=== PATIENT | female | born 1940 | race Asian ===

== ENCOUNTER 2017-07-13 22:09 | Inpatient (IN) | payer MEDICARE, MEDICAID ==
[~2017-07-13] VITALS: Ht 121.9 cm; Wt 37.2 kg
[2017-07-13 22:30] VITALS: BP 120/70
[2017-07-13] MEDS ORDERED: MAGNESIUM HYDROXIDE 30 ML UDC PO PRN (22:30)
[2017-07-13] MEDS ORDERED: MAG HYDROX/AL HYDROX/SIMETH 30 ML UDC PO PRN (22:30)
--- NOTE | 2017-07-13 22:30 | NUR ---
ADMITTED A 77-YEAR OLD FEMALE FROM [facility] VIA GURNEY TRANSPORTED BY AMBULANCE ACCOMPANIED BY 2 EMT'S. BREATHING EVEN AND UNLABORED. NO S/SX OF ACUTE DISTRESS NOTED. NO SOB NOTED. PATIENT ADMITTED ON A VOLUNTARY ADMISSION. PATIENT IS AWAKE, ALERT AND ORIENTED X 1 ON ROOM AIR. PATIENT HAS ADMITTING DIAGNOSIS OF DEPRESSION AND ANXIETY AND MEDICAL DIAGNOSIS OF HYPERTENSION, DIABETES TYPE 2, GERD, MUSCLE WEAKNESS AND SYNCOPE. PAGED EPIC GROUP ON-CALL DR. POWERS AWAITING CALL BACK FROM MD REGARDING MED RECONCILIATION ORDERS. PATIENT DENIES SI/HI AT THIS TIME. NO MANIFESTATION OF PAIN/DISCOMFORT NOTED. SKIN AND BODY ASSESSMENT DONE. PATIENT IS UNDER THE PSYCHIATRIC CARE OF DR. MCKEON AND UNDER THE MEDICAL CARE OF DR. POWERS. PATIENT BELONGINGS WERE INVENTORIED AND CHECKED FOR CONTRABAND. PATIENT ORIENTED TO ROOM, FLOOR AND STAFF. PATIENT EDUCATED ON THE USE OF CALL NIEVES. PATIENT BED SIDE RAILS X 2 FOR SAFETY. PATIENT BED IS LOCKED. LOW BED FOR SAFETY. WILL CONTINUE TO MONITOR Q15 MINS FOR SAFETY.
--- NOTE | 2017-07-13 22:35 | NUR ---
CALLED DR. POWERS REGARDING MEDICATION RECONCILIATION ORDERS AWAITING CALL BACK FROM .
[2017-07-13] MEDS ORDERED: GLIM2TAB2 PO (23:42)
[2017-07-13] MEDS ORDERED: ZOLP10TA6 PO (23:42)
[2017-07-13] MEDS ORDERED: LOSA100T15 PO (23:42)
[2017-07-13] MEDS ORDERED: OMEP20CA10 PO (23:42)
[2017-07-13] MEDS ORDERED: MIRT15TA7 PO (23:42)
[2017-07-13] MEDS ORDERED: ESCI10TA PO (23:42)
[2017-07-14] MEDS ORDERED: clonazePAM 0.5 MG TABLET ONE (00:56)
[2017-07-14] MEDS ORDERED: ACETAMINOPHEN 325 MG TABLET ONE (00:58)
[2017-07-14] MEDS: ACETAMINOPHEN 325 MG TABLET PO PRN ×2 (01:21→21:37)
[2017-07-14] MEDS: clonazePAM 0.5 MG TABLET PO PRN (01:21)
--- NOTE | 2017-07-14 01:25 | NUR ---
PT COMPLAIN OF LOWER BACK PAIN. TYLENOL 650MG PO GIVEN ORDERED. WILL CONTINUE TO MONITOR.
--- NOTE | 2017-07-14 01:25 | NUR ---
PT IS ANXIOUS. KLONOPIN 0.5MG PO GIVEN ORDERED. WILL CONTINUE TO MONITOR.
[2017-07-14 03:05] VITALS: BP 124/70
--- NOTE | 2017-07-14 04:30 | NUR ---
FOLLOWED UP CALL MADE TO DR. PWOERS REGARDING MEDICATION RECONCILIATION. AWAITING CALL BACK FROM
--- NOTE | 2017-07-14 06:18 | NUR ---
DR. POWERS CALLED BACK AND INSTRUCTED THAT MORNING DOCTOR WILL DO THE MEDICATION RECONCILIATION. ENDORSED TO NEXT SHIFT ACCORDINGLY.
[2017-07-14 07:31] LABS: BASOPHILS % (AUTO) 0.6 % (0.0-2.0); EOSINOPHILS # (AUTO) 0.1 /CMM (0.0-0.7); EOSINOPHILS % (AUTO) 1.7 % (0.0-6.0); HEMATOCRIT 27 % (33-45); MEAN CORPUSCULAR HEMOGLOBIN 32 PG (26.0-33.0); MEAN CORPUSCULAR HGB CONC 34 g/dl (31.0-36.0); MEAN CORPUSCULAR VOLUME 93 fL (82-100); MONOCYTES # (AUTO) 0.6 /CMM (0.1-1.30); MONOCYTES % (AUTO) 7.6 % (2.0-12.0); NEUTROPHILS # (AUTO) 3.8 /CMM (1.8-8.9); NEUTROPHILS % (AUTO) 50.1 % (43.0-81.0); PLATELET COUNT (AUTO) 390 /CMM (150-450); RED BLOOD CELL COUNT(AUTO) 2.87 MIL/uL (4.0-5.2); WHITE BLOOD COUNT (AUTO) 7.6 K/uL (4.3-11.0)
[2017-07-14] MEDS ORDERED: BRIM5DRO EACHEYE (07:37)
[2017-07-14] MEDS ORDERED: AMYL1CAP56 PO (07:37)
[2017-07-14] MEDS ORDERED: BLOO-668 IN (07:37)
[2017-07-14] MEDS ORDERED: BIMA2.5D5 EACHEYE (07:37)
[2017-07-14 07:46] LABS: CHOLESTEROL 153 mg/dL (<200); HDL CHOLESTEROL 57 mg/dL (40-60); LDL 91 mg/dL (0-99); TRIGLYCERIDES 36 mg/dL (30-150)
[2017-07-14 07:52] LABS: ALANINE AMINOTRANSFERASE 20 U/L (12-78); ALBUMIN 2.9 g/dL (3.4-5.0); ALKALINE PHOSPHATASE 76 U/L (46-116); ASPARTATE AMINOTRANSFERASE 19 U/L (15-37); BILIRUBIN,TOTAL 0.2 mg/dL (0.2-1.0); CALCIUM, SERUM 8.8 mg/dL (8.5-10.1); CARBON DIOXIDE 23 mmol/L (21-32); CHLORIDE 106 mmol/L (98-107); CREATININE 1.1 mg/dL (0.6-1.3); GLUCOSE 79 mg/dL (74-106); POTASSIUM 4.4 mmol/L (3.5-5.1); SODIUM SERUM 135 mmol/L (136-145); TOTAL PROTEIN, SERUM 6.4 g/dL (6.4-8.2); UREA NITROGEN, BLOOD 28 mg/dL (7-18)
[2017-07-14 08:00] VITALS: BP 120/74
[2017-07-14] MEDS ORDERED: INSU100C10 SQ (08:01)
[2017-07-14] MEDS ORDERED: DEXTROSE 50%-WATER 50 ML DISP.SYRIN IV PRN (12:30)
[2017-07-14 13:42] LABS: IRON, SERUM 67 ug/dl (50-175); TOTAL IRON BINDING CAPACITY 396 ug/dl (250-450)
[2017-07-14] MEDS: LOSARTAN POTASSIUM 50 MG TABLET PO SCH (15:19)
--- NOTE | 2017-07-14 15:47 | NUR ---
Initial discharge plan: Per son, patient lives at home with him and his family [address] [place] [address]. ([phone]). bilingual patient support caseworker spoke to patient's son Jaime ([phone]) regarding patient's living arrangements per son, he is looking for a fdc placement. bilingual patient support caseworker will help form a safe and proper discharge.
[2017-07-14 16:21] VITALS: BP 110/62
[2017-07-14] MEDS: BLOOD SUGAR DIAGNOSTIC 1 EACH STRIP VI SCH ×2 (16:55→21:38)
[2017-07-14] MEDS: BRIMONIDINE TARTRATE OPHT SOLN 5 ML BOTTLE EACHEYE SCH (16:57)
[2017-07-14] MEDS: GLIMEPIRIDE 1 MG TABLET PO SCH (16:58)
[2017-07-14] MEDS ORDERED: BRIMONIDINE TARTRATE OPHT SOLN 5 ML BOTTLE EACHEYE SCH (17:00)
[2017-07-14] MEDS ORDERED: AMYLASE/LIPASE/PROTEASE 1 CAP.EC PO SCH (17:30)
[2017-07-14] MEDS: LIPASE/PROTEASE/AMYLASE 1 EACH CAPSULE.DR PO SCH (18:18)
[2017-07-14] MEDS: INSULIN REGULAR, HUMAN 100 UNIT/ML 3 ML VIAL SQ PRN (18:20)
[2017-07-14 20:00] VITALS: BP 148/77
[2017-07-14] MEDS: LATANOPROST EYE DROP 0.005% 2.5 ML BOTTLE EACHEYE SCH (21:27)
[2017-07-14] MEDS: TEMAZEPAM 7.5 MG CAPSULE PO PRN (21:28)
[2017-07-14] MEDS: ARIPIPRAZOLE 5 MG TABLET PO SCH (21:28)
--- NOTE | 2017-07-14 21:28 | NUR ---
GPS RN NOTES pt requesting for sleeping pill , Restoril given as ordered. bp : 148/77, hr : 81, 02 sat : 100 %
[2017-07-14] MEDS: MIRTAZAPINE 15 MG TABLET PO SCH (21:37)
[2017-07-14] MEDS ORDERED: BIMATOPROST 2.5 ML DROPS OP SCH (22:00)
--- NOTE | 2017-07-15 03:59 | NUR ---
CHECKED PT'S BLOOD SUGAR: 57 AT THIS TIME, PT IS AWAKE, VERBALLY RESPONSIVE, NO CHANGE IN MENTAL STATUS , DENIES ANY DIZZINESS AT THIS TIME. NO S/S OF HYPOGLYCEMIA NOTED. PT ABLE TO DRINK ORANGE JUICE AND ATE PUDDING AND JELLO SAFELY AND WITHOUT DIFFICULTY, CHARGE NURSE DUNCAN AWARE. WILL RECHECK BLOOD SUGAR IN 20 MINUTES.
--- NOTE | 2017-07-15 04:19 | NUR ---
RECHECKED PT'S BLOOD SUGAR ; 137 AT THIS TIME, PT REMAINS AWAKE, VERBALLY RESPONSIVE. WILL MONITOR PT CLOSELY.
[2017-07-15] MEDS ORDERED: Medication Not On Formulary EA (Omeprazole 20 MG) PO SCH (07:30)
[2017-07-15 08:00] VITALS: BP 128/68
--- NOTE | 2017-07-15 08:00 | NUR ---
GPS/RN BS=48. PT HAD BREAKFAST. NO S/S HYPOGLYCEMIA NOTED. PT REFUSED ORANGE JUICE. APPLE JUICE WITH 4 SUGARS GIVEN INSTEAD.
[2017-07-15] MEDS: BLOOD SUGAR DIAGNOSTIC 1 EACH STRIP VI SCH ×4 (08:26→23:05)
[2017-07-15] MEDS: ESCITALOPRAM OXALATE (10 MG) 10 MG TABLET PO SCH (08:30)
[2017-07-15] MEDS: LIPASE/PROTEASE/AMYLASE 1 EACH CAPSULE.DR PO SCH ×3 (08:30→17:09)
[2017-07-15] MEDS: PANTOPRAZOLE 40 MG TABLET.DR PO SCH (08:30)
[2017-07-15] MEDS: LOSARTAN POTASSIUM 50 MG TABLET PO SCH (08:30)
[2017-07-15] MEDS: GLIMEPIRIDE 1 MG TABLET PO SCH (08:31)
[2017-07-15] MEDS: BRIMONIDINE TARTRATE OPHT SOLN 5 ML BOTTLE EACHEYE SCH ×2 (08:31→17:09)
--- NOTE | 2017-07-15 08:43 | NUR ---
GPS/RN PT REFUSED ACCUCHECK
--- NOTE | 2017-07-15 11:14 | NUR ---
GPS/RN PT WAS SEEN BY DR MILLER WITH NEW ORDERS RECEIVED AND CARRIED OUT
[2017-07-15] MEDS: *INSULIN REGULAR(HUMULIN R)HUM 100 UNIT/ML VIAL SQ PRN (12:31)
[2017-07-15 16:00] VITALS: BP 100/54
[2017-07-15] MEDS ORDERED: LIPASE/PROTEASE/AMYLASE 1 EACH CAPSULE.DR PO SCH (17:30)
[2017-07-15 20:00] VITALS: BP 139/72
[2017-07-15] MEDS: LATANOPROST EYE DROP 0.005% 2.5 ML BOTTLE EACHEYE SCH (21:48)
[2017-07-15] MEDS: MIRTAZAPINE 15 MG TABLET PO SCH (21:48)
[2017-07-15] MEDS: TEMAZEPAM 7.5 MG CAPSULE PO PRN (21:48)
[2017-07-15] MEDS: ARIPIPRAZOLE 5 MG TABLET PO SCH (21:48)
[2017-07-16] MEDS: clonazePAM 0.5 MG TABLET PO PRN (05:12)
--- NOTE | 2017-07-16 05:15 | NUR ---
PT IS AGITATED. PT REQUESTING FOR MEDICATION TO CALM HER DOWN. CLONAZEPAM 0.5MG PO GIVEN ORDERED. WILL CONTINUE TO MONITOR FOR SAFETY AND BEHAVIOR [id number].
[2017-07-16] MEDS: LIPASE/PROTEASE/AMYLASE 1 EACH CAPSULE.DR PO SCH ×3 (07:44→16:33)
[2017-07-16] MEDS: PANTOPRAZOLE 40 MG TABLET.DR PO SCH (07:45)
[2017-07-16] MEDS: BLOOD SUGAR DIAGNOSTIC 1 EACH STRIP VI SCH ×4 (07:45→21:13)
[2017-07-16] MEDS: ESCITALOPRAM OXALATE (10 MG) 10 MG TABLET PO SCH (08:19)
[2017-07-16] MEDS: BRIMONIDINE TARTRATE OPHT SOLN 5 ML BOTTLE EACHEYE SCH ×2 (08:19→17:00)
[2017-07-16] MEDS: LOSARTAN POTASSIUM 50 MG TABLET PO SCH (08:20)
[2017-07-16 08:26] VITALS: BP 129/69
[2017-07-16] MEDS: INSULIN REGULAR, HUMAN 100 UNIT/ML 3 ML VIAL SQ PRN (14:20)
[2017-07-16 15:34] VITALS: BP 102/57
--- NOTE | 2017-07-16 17:47 | NUR ---
GPS RN NOTE: PT REFUSE BS CHECK STATED" I DONT WANT IT, NO MORE" WILL CONTINUE MONITORING
[2017-07-16 20:48] VITALS: BP 131/64
[2017-07-16] MEDS: MIRTAZAPINE 15 MG TABLET PO SCH (21:13)
[2017-07-16] MEDS: ARIPIPRAZOLE 5 MG TABLET PO SCH (21:13)
[2017-07-16] MEDS: LATANOPROST EYE DROP 0.005% 2.5 ML BOTTLE EACHEYE SCH (21:13)
[2017-07-16] MEDS: TEMAZEPAM 7.5 MG CAPSULE PO PRN (22:19)
[2017-07-17] MEDS: clonazePAM 0.5 MG TABLET PO PRN ×2 (06:55→14:47)
--- NOTE | 2017-07-17 07:18 | NUR ---
GPS RN: PATIENT STARTED TO BECOME ANXIOUS. BP CHECKED 134/73 HR-73. OFFERED KLONOPIN MEDICATION 0.5 MG ORDERED A PRN. PATIENT TOOK MEDICATION. WILL MONITOR PATIENT'S MOOD AND BEHAVIOR. WILL ENDORSE TO DAY SHIFT NURSE.
[2017-07-17] MEDS: BLOOD SUGAR DIAGNOSTIC 1 EACH STRIP VI SCH ×4 (07:30→21:19)
[2017-07-17 08:00] VITALS: BP 129/70
[2017-07-17] MEDS: LOSARTAN POTASSIUM 50 MG TABLET PO SCH (09:59)
[2017-07-17] MEDS: LIPASE/PROTEASE/AMYLASE 1 EACH CAPSULE.DR PO SCH ×3 (09:59→18:37)
[2017-07-17] MEDS: ESCITALOPRAM OXALATE (10 MG) 10 MG TABLET PO SCH (10:00)
[2017-07-17] MEDS: PANTOPRAZOLE 40 MG TABLET.DR PO SCH (10:00)
[2017-07-17] MEDS: BRIMONIDINE TARTRATE OPHT SOLN 5 ML BOTTLE EACHEYE SCH ×2 (10:07→18:37)
[2017-07-17] MEDS: *INSULIN REGULAR(HUMULIN R)HUM 100 UNIT/ML VIAL SQ PRN (12:47)
--- NOTE | 2017-07-17 14:51 | NUR ---
SW faxed inquiry (psych/medical HMP, medications and face sheet) to [facility], [address] [place] [address]. [facility] [address], , . Called facility back in order to inquire if they had received inquiry (fax). Respondent stated, yes and informed SW that either Melonie or Theresa, from Admissions would be calling back with an update.
--- NOTE | 2017-07-17 16:25 | NUR ---
pt remaiuns somatic and needy ' i cant breath , iwant another blanket' still confused and needs constant redirection
[2017-07-17 16:26] VITALS: BP 113/57
[2017-07-17] MEDS: INSULIN REGULAR, HUMAN 100 UNIT/ML 3 ML VIAL SQ PRN (18:35)
[2017-07-17 20:21] VITALS: BP 99/57
[2017-07-17] MEDS: ARIPIPRAZOLE 5 MG TABLET PO SCH (21:17)
[2017-07-17] MEDS: LATANOPROST EYE DROP 0.005% 2.5 ML BOTTLE EACHEYE SCH (21:17)
[2017-07-17] MEDS: MIRTAZAPINE 15 MG TABLET PO SCH (21:17)
[2017-07-18] MEDS: PANTOPRAZOLE 40 MG TABLET.DR PO SCH (08:22)
[2017-07-18] MEDS: LIPASE/PROTEASE/AMYLASE 1 EACH CAPSULE.DR PO SCH ×3 (08:23→17:57)
[2017-07-18] MEDS: ESCITALOPRAM OXALATE (10 MG) 10 MG TABLET PO SCH (08:23)
[2017-07-18] MEDS: LOSARTAN POTASSIUM 50 MG TABLET PO SCH (08:23)
[2017-07-18] MEDS: BLOOD SUGAR DIAGNOSTIC 1 EACH STRIP VI SCH ×2 (08:23→12:00)
[2017-07-18] MEDS: BRIMONIDINE TARTRATE OPHT SOLN 5 ML BOTTLE EACHEYE SCH ×2 (08:25→17:58)
[2017-07-18 08:33] VITALS: BP 115/62
--- NOTE | 2017-07-18 15:33 | NUR ---
Chester from [facility], [address]. [facility] [address], ([phone]) came to assess the patient at 11:45am. vegetable farmworker will follow-up.
[2017-07-18 15:44] VITALS: BP 105/69
[2017-07-18 20:06] VITALS: BP 115/64
[2017-07-18] MEDS: MIRTAZAPINE 15 MG TABLET PO SCH (21:13)
[2017-07-18] MEDS: ARIPIPRAZOLE 5 MG TABLET PO SCH (21:13)
[2017-07-18] MEDS: LATANOPROST EYE DROP 0.005% 2.5 ML BOTTLE EACHEYE SCH (21:13)
[2017-07-19] MEDS: PANTOPRAZOLE 40 MG TABLET.DR PO SCH (07:30)
[2017-07-19] MEDS: LIPASE/PROTEASE/AMYLASE 1 EACH CAPSULE.DR PO SCH ×3 (07:30→17:51)
[2017-07-19 08:07] VITALS: BP 112/55
[2017-07-19] MEDS: LOSARTAN POTASSIUM 50 MG TABLET PO SCH (09:39)
[2017-07-19] MEDS: BRIMONIDINE TARTRATE OPHT SOLN 5 ML BOTTLE EACHEYE SCH ×2 (09:41→17:42)
[2017-07-19] MEDS: ESCITALOPRAM OXALATE (10 MG) 10 MG TABLET PO SCH (09:42)
[2017-07-19 16:14] VITALS: BP 104/54
--- NOTE | 2017-07-19 19:30 | NUR ---
GPS RN NOTE, RECEIVED PATIENT AWAKE AND IN BED NO S/S OR COMPLAINTS OF PAIN AT THIS TIME. PATIENT IS DISPLAYING NO S/S OF APPARENT DISTRESS AT THIS TIME. PATIENT BREATHING IS UNLABORED WITH EQUAL RISE AND FALL OF THE CHEST. PATIENT IS ALERT AND ORIENTED X1 ON ROOM AIR WITH A SPOO2 97%. PATIENT IS MED COMPLIANT, CONFUSED, ANXIOUS, DISORGANIZED, AND NEEDS REORIENTATION. PATIENT DENIES SUICIDE IDEATIONS AND HOMICIDAL IDEATIONS AT THIS TIME. PATIENT ASSISTED WITH TURNING AND REPOSITIONING Q2HR AND PRN FOR COMFORT AND CIRCULATION. PATIENT HAS NO NEEDS AT THIS TIME. PATIENT EDUCATED ON THE USE OF THE CALL NIEVES. PATIENT BED SIDE RAILS UP X 2 FOR SAFETY. PATIENT BED IS LOCKED AND LOW WILL CONTINUE TO MONITOR AND MAINTAIN SAFETY Q15 MIN WITH THE HELP OF STAFF.
[2017-07-19 20:06] VITALS: BP 94/54
[2017-07-19] MEDS: ARIPIPRAZOLE 5 MG TABLET PO SCH (21:23)
[2017-07-19] MEDS: LATANOPROST EYE DROP 0.005% 2.5 ML BOTTLE EACHEYE SCH (21:23)
[2017-07-19] MEDS: MIRTAZAPINE 15 MG TABLET PO SCH (21:24)
[2017-07-19] MEDS: TEMAZEPAM 7.5 MG CAPSULE PO PRN (21:24)
--- NOTE | 2017-07-19 21:24 | NUR ---
GPS RN NOTE, PATIENT HAS A COMPLAINT OF NOT BEING ABLE TO SLEEP AND IS REQUESTING RESTORIL AT THIS TIME. PATIENT VITAL SIGNS ARE STABLE. GAVE RESTORIL 7.5MG PO HS ORDERED. WILL REASSESS FOR INSOMNIA AND I WILL CONTINUE TO MONITOR THIS PATIENT.
[2017-07-20 07:43] VITALS: BP 133/67
[2017-07-20] MEDS: LIPASE/PROTEASE/AMYLASE 1 EACH CAPSULE.DR PO SCH ×3 (08:52→17:18)
[2017-07-20] MEDS: BRIMONIDINE TARTRATE OPHT SOLN 5 ML BOTTLE EACHEYE SCH ×2 (08:52→17:18)
[2017-07-20] MEDS: PANTOPRAZOLE 40 MG TABLET.DR PO SCH (08:52)
[2017-07-20] MEDS: LOSARTAN POTASSIUM 50 MG TABLET PO SCH (08:53)
[2017-07-20] MEDS: ESCITALOPRAM OXALATE (10 MG) 10 MG TABLET PO SCH (08:53)
[2017-07-20 15:36] VITALS: BP 108/53
[2017-07-20 20:00] VITALS: BP 104/59
[2017-07-20] MEDS: TEMAZEPAM 7.5 MG CAPSULE PO PRN (22:11)
[2017-07-20] MEDS: ARIPIPRAZOLE 5 MG TABLET PO SCH (22:11)
[2017-07-20] MEDS: LATANOPROST EYE DROP 0.005% 2.5 ML BOTTLE EACHEYE SCH (22:11)
[2017-07-20] MEDS: MIRTAZAPINE 15 MG TABLET PO SCH (22:11)
[2017-07-21 07:18] LABS: BASOPHILS % (AUTO) 0.6 % (0.0-2.0); EOSINOPHILS # (AUTO) 0.1 /CMM (0.0-0.7); EOSINOPHILS % (AUTO) 1.7 % (0.0-6.0); HEMATOCRIT 31 % (33-45); HEMOGLOBIN 10.3 g/dL (11.5-14.8); LYMPHOCYTES # (AUTO) 3.2 /CMM (0.8-4.8); LYMPHOCYTES % (AUTO) 41.1 % (20.0-44.0); MEAN CORPUSCULAR HEMOGLOBIN 32 PG (26.0-33.0); MEAN CORPUSCULAR HGB CONC 33 g/dl (31.0-36.0); MEAN CORPUSCULAR VOLUME 95 fL (82-100); MONOCYTES # (AUTO) 0.6 /CMM (0.1-1.30); MONOCYTES % (AUTO) 7.4 % (2.0-12.0); NEUTROPHILS # (AUTO) 3.8 /CMM (1.8-8.9); NEUTROPHILS % (AUTO) 49.2 % (43.0-81.0); PLATELET COUNT (AUTO) 453 /CMM (150-450); RDW COEFFICIENT OF VARIATION 16.2 (11.5-15.0); RED BLOOD CELL COUNT(AUTO) 3.25 MIL/uL (4.0-5.2); WHITE BLOOD COUNT (AUTO) 7.7 K/uL (4.3-11.0)
[2017-07-21 07:39] LABS: CALCIUM, SERUM 8.8 mg/dL (8.5-10.1); CARBON DIOXIDE 23 mmol/L (21-32); CHLORIDE 106 mmol/L (98-107); CREATININE 1.2 mg/dL (0.6-1.3); GLUCOSE 133 mg/dL (74-106); POTASSIUM 4.2 mmol/L (3.5-5.1); SODIUM SERUM 140 mmol/L (136-145); UREA NITROGEN, BLOOD 35 mg/dL (7-18)
[2017-07-21 08:00] VITALS: BP_SYST 110; BP_SYST 140; BP_DIAS 64; BP_DIAS 83
[2017-07-21] MEDS: ESCITALOPRAM OXALATE (10 MG) 10 MG TABLET PO SCH (08:24)
[2017-07-21] MEDS: PANTOPRAZOLE 40 MG TABLET.DR PO SCH (08:24)
[2017-07-21] MEDS: LIPASE/PROTEASE/AMYLASE 1 EACH CAPSULE.DR PO SCH ×3 (08:24→16:55)
[2017-07-21] MEDS: BRIMONIDINE TARTRATE OPHT SOLN 5 ML BOTTLE EACHEYE SCH ×2 (08:26→16:56)
[2017-07-21] MEDS: LOSARTAN POTASSIUM 50 MG TABLET PO SCH (08:30)
--- NOTE | 2017-07-21 11:39 | NUR ---
kitchen worker faxed inquiry to [facility] (fax: [phone]/ phone: [phone]) [address] [place] [address]. Per Perez, from the facility, patient has been accepted. kitchen worker will follow-up.
[2017-07-21 16:03] VITALS: BP 100/58
[2017-07-21 20:00] VITALS: BP 105/61
[2017-07-21] MEDS: ARIPIPRAZOLE 5 MG TABLET PO SCH (21:49)
[2017-07-21] MEDS: TEMAZEPAM 7.5 MG CAPSULE PO PRN (21:49)
[2017-07-21] MEDS: MIRTAZAPINE 15 MG TABLET PO SCH (21:49)
[2017-07-21] MEDS: LATANOPROST EYE DROP 0.005% 2.5 ML BOTTLE EACHEYE SCH (21:49)
[2017-07-22] MEDS: LIPASE/PROTEASE/AMYLASE 1 EACH CAPSULE.DR PO SCH ×3 (07:45→17:17)
[2017-07-22] MEDS: PANTOPRAZOLE 40 MG TABLET.DR PO SCH (07:45)
[2017-07-22 08:00] VITALS: BP 118/65
[2017-07-22] MEDS: LOSARTAN POTASSIUM 50 MG TABLET PO SCH (08:10)
[2017-07-22] MEDS: BRIMONIDINE TARTRATE OPHT SOLN 5 ML BOTTLE EACHEYE SCH ×2 (08:10→17:17)
[2017-07-22] MEDS: ESCITALOPRAM OXALATE (10 MG) 10 MG TABLET PO SCH (08:10)
[2017-07-22 16:00] VITALS: BP 103/56
[2017-07-22 20:00] VITALS: BP 101/54
[2017-07-22] MEDS: LATANOPROST EYE DROP 0.005% 2.5 ML BOTTLE EACHEYE SCH (21:02)
[2017-07-22] MEDS: ARIPIPRAZOLE 5 MG TABLET PO SCH (21:02)
[2017-07-22] MEDS: TEMAZEPAM 7.5 MG CAPSULE PO PRN (21:02)
[2017-07-22] MEDS: MIRTAZAPINE 15 MG TABLET PO SCH (21:03)
[2017-07-23 08:10] VITALS: BP 121/66
[2017-07-23] MEDS: ARIPIPRAZOLE 2 MG TABLET PO SCH (09:08)
[2017-07-23] MEDS: LIPASE/PROTEASE/AMYLASE 1 EACH CAPSULE.DR PO SCH ×3 (09:08→16:56)
[2017-07-23] MEDS: LOSARTAN POTASSIUM 50 MG TABLET PO SCH (09:09)
[2017-07-23] MEDS: ESCITALOPRAM OXALATE (10 MG) 10 MG TABLET PO SCH (09:09)
[2017-07-23] MEDS: PANTOPRAZOLE 40 MG TABLET.DR PO SCH (09:10)
[2017-07-23] MEDS: BRIMONIDINE TARTRATE OPHT SOLN 5 ML BOTTLE EACHEYE SCH ×2 (09:19→16:56)
[2017-07-23 16:00] VITALS: BP 115/63
[2017-07-23 19:38] VITALS: BP 110/65
[2017-07-23] MEDS: MIRTAZAPINE 15 MG TABLET PO SCH (20:33)
[2017-07-23] MEDS: ARIPIPRAZOLE 5 MG TABLET PO SCH (20:34)
--- NOTE | 2017-07-23 20:38 | NUR ---
GPS RN NOTES: PATIENT REQUESTED FOR HER MEDICATIONS EARLIER, GIVEN ABILIFY 5MG AND REMERON 22.5 MG. PER PATIENT SHE WANTS TO HAVE MEDICATIONS EARLY SO HE CAN SLEEP. GIVEN MEDS ORALLY. WILL CONTINUE TO MONITOR PATIENT.
[2017-07-23] MEDS: LATANOPROST EYE DROP 0.005% 2.5 ML BOTTLE EACHEYE SCH (21:37)
[2017-07-23] MEDS: TEMAZEPAM 7.5 MG CAPSULE PO PRN (21:37)
[2017-07-24] MEDS: PANTOPRAZOLE 40 MG TABLET.DR PO SCH (07:49)
[2017-07-24] MEDS: LIPASE/PROTEASE/AMYLASE 1 EACH CAPSULE.DR PO SCH ×3 (07:49→16:44)
[2017-07-24 08:11] VITALS: BP 135/76
[2017-07-24] MEDS: ARIPIPRAZOLE 2 MG TABLET PO SCH (08:11)
[2017-07-24] MEDS: ESCITALOPRAM OXALATE (10 MG) 10 MG TABLET PO SCH (08:11)
[2017-07-24] MEDS: LOSARTAN POTASSIUM 50 MG TABLET PO SCH (08:11)
[2017-07-24] MEDS: BRIMONIDINE TARTRATE OPHT SOLN 5 ML BOTTLE EACHEYE SCH ×2 (08:15→16:44)
--- NOTE | 2017-07-24 11:02 | NUR ---
Discharge Planning: SW faxed over updated progress notes to [facility], [address] [facility]. [facility] [address], , . SW to follow up.
[2017-07-24 15:46] VITALS: BP 116/59
--- NOTE | 2017-07-24 19:45 | NUR ---
GPS/RN OPENING NOTES PT ARRIVED TO UNIT ACCOMPANIED BY RN AND SENIOR MECHANICAL DEVELOPMENT ENGINEER. ORIENTED PT TO ROOM AND CALL LIGHT. NO IV ACCESS PER PROTOCOL. SITTER AT BEDSIDE. BED IN LOW/LOCKED POSITION WITH CALL LIGHT IN REACH. SIDE RAILS UPX2 WITH BED ALARM ON FOR SAFETY. CHART AND BELONGING BROUGHT WITH PT. WILL CONTINUE TO MONITOR
[2017-07-24 20:00] VITALS: BP 137/72
[2017-07-24] MEDS: LATANOPROST EYE DROP 0.005% 2.5 ML BOTTLE EACHEYE SCH (21:12)
[2017-07-24] MEDS: MIRTAZAPINE 15 MG TABLET PO SCH (21:12)
[2017-07-24] MEDS: ARIPIPRAZOLE 5 MG TABLET PO SCH (21:12)
[2017-07-24] MEDS: TEMAZEPAM 7.5 MG CAPSULE PO PRN (22:02)
--- NOTE | 2017-07-25 07:25 | NUR ---
GPS OVERFLOW RN CLOSING NOTES PT ASLEEP, SITTER AT BEDSIDE. ON ROOM AIR, BREATHING EVEN AND UNLABORED, NO S/S OF SOB OR PAIN. REMAINED CALM AND COOPERATIVE DURING SHIFT HOWEVER PT IS NEEDY. ALL NEEDS MET. KEPT PT COMFORTABLE. NO IV ACCESS PER PROTOCOL. BED IN LOW/LOCKED POSITION WITH CALL LIGHT IN REACH. SIDE RAILS UPX2. ENDORSED TO AM SHIFT CORBY.
[2017-07-25] MEDS: LIPASE/PROTEASE/AMYLASE 1 EACH CAPSULE.DR PO SCH ×3 (07:30→17:05)
[2017-07-25 08:00] VITALS: BP 135/65
--- NOTE | 2017-07-25 09:00 | NUR ---
GPS OVERFLOW RN OPENING NOTES PT A&0X1 LAYING SUPINE WITH BED IN LOWEST LOCKED POSITION, HANDRAILSX2 AND CALL NIEVES WITHIN REACH. PT TOLERATING ROOM AIR WITH NO SOB, LUNGS AUSCULTATED CLEAR THROUGHOUT. PT REPORTS NO PAIN. PT IS WITHOUT IV ACCESS. PT IS WITHOUT CONCERNS OR COMPLAINTS AT THIS TIME. PT BRIEFED ON TODAY'S POC. WILL CONTINUE TO MONITOR.
[2017-07-25] MEDS: LOSARTAN POTASSIUM 50 MG TABLET PO SCH (09:11)
[2017-07-25] MEDS: ESCITALOPRAM OXALATE (10 MG) 10 MG TABLET PO SCH (09:12)
[2017-07-25] MEDS: PANTOPRAZOLE 40 MG TABLET.DR PO SCH (09:12)
[2017-07-25] MEDS: BRIMONIDINE TARTRATE OPHT SOLN 5 ML BOTTLE EACHEYE SCH ×2 (09:12→17:05)
--- NOTE | 2017-07-25 09:30 | NUR ---
GPS OVER FLOW RN NOTES PHARMACY CONTACTED REGARDING ABILIFY AND PANCREAZE AM DOSES. PHARMACY TO DELIVER.
--- NOTE | 2017-07-25 10:46 | NUR ---
GPS OVER FLOW RN NOTES PHARMACY CONTACTED AGAIN REGARDING ABILIFY AND PANCREAZE AM DOSES. PHARMACY TO DELIVER.
[2017-07-25] MEDS: ARIPIPRAZOLE 2 MG TABLET PO SCH (11:19)
--- NOTE | 2017-07-25 12:47 | NUR ---
MS/RN S/B Dr Burden Seen by Dr Burden - patient cleared for discharge today to [facility]. All psych medications to be continued.
--- NOTE | 2017-07-25 12:48 | NUR ---
Discharge Planning: Patient was denied from [facility], but was accepted into [facility] (fax: [phone]/ phone: [phone]) [address] [place] [address] Medical floor is discharging patient. SW will make family aware.
--- NOTE | 2017-07-25 12:54 | NUR ---
Discharge Planning Note: CYNTHIA called pt's son Jaime ([phone]) and informed him that his mother will be discharged to [facility] today. Jaime was in agreement with the plan.
--- NOTE | 2017-07-25 13:30 | NUR ---
RN-CO: Patient remain calm and cooperative to care. Denied SI and HI. Denied AH and VH. Dr Burden gave an order to discharge patient to [facility], noted.
--- NOTE | 2017-07-25 13:47 | NUR ---
Discharge Note Patient will be discharged from the medical floor to [facility] (fax: [phone]/ phone: [phone]) [address] [place] [address]. Patient is currently on voluntary hold and has been cleared by psychiatrist. Facility is aware of discharge. The transportation will be arranged through patient case coordinator / medical floor staff. Patients son, Jaime ([phone]), was informed by CYNTHIA Da Silva and is in agreement with the discharge plan. Patient will be followed by Dr. Burden [address], [place] [address] [phone] on Tuesday 07/31 at 1pm. Amparo will also be seen by his finishing manager at the facility, [address] [facility] [address], [place] [address] [phone] on 07/26/17 at 9am. Patient is not a smoker and does not abuse drug or alcohol.
--- NOTE | 2017-07-25 13:48 | NUR ---
GPS OVERFLOW RN NOTES PT RESTING IN BED. CALM AND COOPERATIVE AT THIS TIME. PT WITHOUT CONCERNS OR COMPLAINTS AT THIS TIME
[2017-07-25 16:00] VITALS: BP 112/61
--- NOTE | 2017-07-25 16:15 | NUR ---
GPS O/F RN, [id number] NO [facility].
--- NOTE | 2017-07-25 16:30 | NUR ---
GPS O/F RN, SNF ENDORSED. SPOKE WITH [facility]. MED RECON FAXED IN ADVANCE OF PT.
--- NOTE | 2017-07-25 16:30 | NUR ---
MS/RN S/B Jed Cantor Seen by Jed - discharge order entered, will be going to [facility]. Medication reconciliation completed.
--- NOTE | 2017-07-25 18:45 | NUR ---
GPS O/F RN D/C NOTES. PT A&0X1, CALM AND COOPERATIVE. SKIN INTACT, NO IVC. PT BELONGINGS REVIEWED WITH PATIENT SECOND RN, ALL ITEMS ACCOUNTED FOR, DOCUMENTED AND GIVEN TO EMT. PT BRIEFED ON D/C POC BUT UNDERSTANDING IS LIMITED. [facility] D/C PACKET REVIEWED WITH EMT TRANSPORT JOSH. RUTLEDGE AT RECEIVING SNF ENDORSED. PT GRATEFUL FOR CARE AND IS WITH NO CONCERNS OR COMPLAINT A THIS TIME.
[2017-07-25] MEDS ORDERED: MIRTAZAPINE 15 MG TABLET PO SCH (22:00)
== END 2017-07-25 18:35 | DRG 885 ==
LOC: GPS 22:09 → GPSOV2 07-24 19:57
PROVIDERS: ADMIT Psychiatry & Neurology Psychiatry; ATTEND Nurse Practitioner Acute Care
DX: F25.1 Schizoaffective disorder, depressive type (principal); E43 Unspecified severe protein-calorie malnutrition; D68.59 Other primary thrombophilia; E11.9 Type 2 diabetes mellitus without complications; D50.0 Iron deficiency anemia secondary to blood loss (chronic); D63.8 Anemia in other chronic diseases classified elsewhere; F33.3 Major depressive disorder, recurrent, severe with psychotic symptoms; E66.9 Obesity, unspecified; H40.9 Unspecified glaucoma; I10 Essential (primary) hypertension; N20.0 Calculus of kidney; Z79.899 Other long term (current) drug therapy; Z68.25 Body mass index [BMI] 25.0-25.9, adult; Z73.6 Limitation of activities due to disability; Z79.84 Long term (current) use of oral hypoglycemic drugs
CPT/HCPCS: 36415; 80048-TC; 80053-TC; 80061-TC; 82962-TC; 83540-TC; 85025-TC; 87081-TC; J1815; Z7610

== ENCOUNTER 2017-11-20 17:13 | Inpatient (IN) | payer MEDICARE, MEDICAID ==
[~2017-11-20] VITALS: Ht 142.2 cm; Wt 39.0 kg
[~2017-11-20 17:13] MED LIST: AMYL1CAP56 PO; BIMA2.5D5 EACHEYE; BLOO-668 IN; BRIM5DRO EACHEYE; GLIM2TAB2 PO; INSU100C10 SQ; LOSA100T15 PO; OMEP20CA10 PO
[2017-11-20 17:54] LABS: BASOPHILS # (AUTO) 0.2 /CMM (0.0-0.2); BASOPHILS % (AUTO) 1.5 % (0.0-2.0); EOSINOPHILS % (AUTO) 0.4 % (0.0-6.0); HEMATOCRIT 34 % (33-45); HEMOGLOBIN 11.6 g/dL (11.5-14.8); LYMPHOCYTES # (AUTO) 2.6 /CMM (0.8-4.8); LYMPHOCYTES % (AUTO) 25.5 % (20.0-44.0); MEAN CORPUSCULAR HEMOGLOBIN 31 PG (26.0-33.0); MEAN CORPUSCULAR HGB CONC 34 g/dl (31.0-36.0); MEAN CORPUSCULAR VOLUME 91 fL (82-100); MONOCYTES # (AUTO) 0.5 /CMM (0.1-1.30); MONOCYTES % (AUTO) 4.9 % (2.0-12.0); NEUTROPHILS # (AUTO) 6.8 /CMM (1.8-8.9); NEUTROPHILS % (AUTO) 67.7 % (43.0-81.0); PLATELET COUNT (AUTO) 724 /CMM (150-450); RDW COEFFICIENT OF VARIATION 12.6 (11.5-15.0); RED BLOOD CELL COUNT(AUTO) 3.73 MIL/uL (4.0-5.2); WHITE BLOOD COUNT (AUTO) 10.1 K/uL (4.3-11.0)
[2017-11-20 18:11] LABS: ALANINE AMINOTRANSFERASE 29 U/L (12-78); ALBUMIN 3.7 g/dL (3.4-5.0); ALKALINE PHOSPHATASE 77 U/L (46-116); ASPARTATE AMINOTRANSFERASE 23 U/L (15-37); BILIRUBIN,DIRECT 0.1 mg/dL (0.0-0.2); BILIRUBIN,TOTAL 0.2 mg/dL (0.2-1.0); CALCIUM, SERUM 9.3 mg/dL (8.5-10.1); CARBON DIOXIDE 28 mmol/L (21-32); CHLORIDE 102 mmol/L (98-107); CREATININE 1.3 mg/dL (0.6-1.3); GLUCOSE 117 mg/dL (74-106); LIPASE 169 U/L (73-393); POTASSIUM 4.3 mmol/L (3.5-5.1); SODIUM SERUM 137 mmol/L (136-145); TOTAL PROTEIN, SERUM 8.3 g/dL (6.4-8.2); UREA NITROGEN, BLOOD 24 mg/dL (7-18)
[2017-11-20 18:13] LABS: TROPONIN I < 0.017 ng/mL (0.00-0.056)
[2017-11-20 18:19] LABS: BILIRUBIN,URINE NEGATIVE (NEGATIVE); BLOOD, URINE NEGATIVE Ery/uL (NEGATIVE); COLOR,URINE YELLOW (YELLOW); KETONES,URINE NEGATIVE (NEGATIVE); LEUKOCYTE ESTERASE ,URINE 1+ (NEGATIVE); NITRITE, URINE NEGATIVE (NEGATIVE); PROTEIN,URINE NEGATIVE (NEGATIVE); UGLUCOSE NEGATIVE (NEGATIVE); UROBILINOGEN,URINE 0.2 EU/dL (0.2)
[2017-11-20 18:20] LABS: APPEARANCE,URINE SLIGHTLY HAZY (CLEAR)
[2017-11-20 18:34] LABS: BACTERIA,URINE Many /HPF (None Seen); RBC,URINE 0-2 /HPF (0-2); SQUAMOUS EPITHELIAL CELL,UR Few /HPF (None Seen)
[2017-11-20] MEDS ORDERED: PANT40TA4 PO (19:29)
[2017-11-20] MEDS ORDERED: ACET-2605 PO (19:29)
[2017-11-20] MEDS ORDERED: NA P133E RC (19:29)
[2017-11-20] MEDS ORDERED: ARIP2TAB3 PO (19:29)
[2017-11-20] MEDS ORDERED: ESCI10TA PO (19:29)
[2017-11-20] MEDS ORDERED: MIRT15TA PO (19:29)
[2017-11-20] MEDS ORDERED: LOSA100T3 PO (19:29)
[2017-11-20] MEDS ORDERED: ARIP5TAB10 PO (19:29)
[2017-11-20] MEDS ORDERED: LIPA1CAP27 PO (19:29)
[2017-11-20] MEDS ORDERED: DOCU-141 PO (19:29)
[2017-11-20] MEDS ORDERED: ACET-868 PO (19:29)
[2017-11-20 20:00] VITALS: BP_SYST 141; BP_SYST 156; BP_DIAS 76; BP_DIAS 77
[2017-11-20 20:10] VITALS: BP 156/77
[2017-11-20] MEDS ORDERED: MAGNESIUM HYDROXIDE 30 ML UDC PO PRN (20:30)
[2017-11-20] MEDS ORDERED: ACETAMINOPHEN 325 MG TABLET PO PRN (20:30)
[2017-11-20] MEDS ORDERED: ONDANSETRON HCL/PF 4 MG/2 ML VIAL IVP PRN (20:30)
[2017-11-20] MEDS ORDERED: NA PHOS,M-B/NA PHOS,DI-BA 1 EA ENEMA RC PRN (20:30)
[2017-11-20] MEDS ORDERED: Z GUARD REMEDY 2 OZ OINT TP PRN (20:30)
[2017-11-20] MEDS: HYDROCODONE/APAP 5/325MG 1 EACH TABLET PO PRN (21:16)
[2017-11-20] MEDS: CEFTRIAXONE 1 G in IV NS 0.9% 50 ML IV SCH (21:16)
[2017-11-20] MEDS: ARIPIPRAZOLE 5 MG TABLET PO SCH (21:16)
[2017-11-20] MEDS: BRIMONIDINE TARTRATE OPHT SOLN 5 ML BOTTLE EACHEYE SCH (21:16)
[2017-11-20] MEDS: MIRTAZAPINE 15 MG TABLET PO SCH (21:16)
[2017-11-20] MEDS: IV NS 0.9% 1,000 ML IV PRN (21:20)
[2017-11-21] MEDS: ZOLPIDEM TARTRATE 5 MG TABLET PO PRN ×2 (01:24→21:17)
[2017-11-21 06:34] LABS: BASOPHILS % (AUTO) 0.4 % (0.0-2.0); EOSINOPHILS # (AUTO) 0.1 /CMM (0.0-0.7); HEMATOCRIT 32 % (33-45); HEMOGLOBIN 10.7 g/dL (11.5-14.8); LYMPHOCYTES # (AUTO) 3.6 /CMM (0.8-4.8); LYMPHOCYTES % (AUTO) 35.1 % (20.0-44.0); MEAN CORPUSCULAR HEMOGLOBIN 31 PG (26.0-33.0); MEAN CORPUSCULAR HGB CONC 34 g/dl (31.0-36.0); MEAN CORPUSCULAR VOLUME 93 fL (82-100); MONOCYTES # (AUTO) 0.5 /CMM (0.1-1.30); MONOCYTES % (AUTO) 4.7 % (2.0-12.0); NEUTROPHILS % (AUTO) 58.8 % (43.0-81.0); PLATELET COUNT (AUTO) 525 /CMM (150-450); RDW COEFFICIENT OF VARIATION 13.1 (11.5-15.0); RED BLOOD CELL COUNT(AUTO) 3.42 MIL/uL (4.0-5.2); WHITE BLOOD COUNT (AUTO) 10.2 K/uL (4.3-11.0)
[2017-11-21] MEDS: PANTOPRAZOLE 40 MG TABLET.DR PO SCH (06:35)
[2017-11-21 06:53] LABS: CALCIUM, SERUM 8.4 mg/dL (8.5-10.1); CARBON DIOXIDE 29 mmol/L (21-32); CHLORIDE 104 mmol/L (98-107); CREATININE 1.2 mg/dL (0.6-1.3); GLUCOSE 93 mg/dL (74-106); PHOSPHORUS 4.4 mg/dL (2.5-4.9); POTASSIUM 4.2 mmol/L (3.5-5.1); SODIUM SERUM 139 mmol/L (136-145); UREA NITROGEN, BLOOD 23 mg/dL (7-18)
[2017-11-21 08:00] VITALS: BP 122/70
[2017-11-21] MEDS: BRIMONIDINE TARTRATE OPHT SOLN 5 ML BOTTLE EACHEYE SCH ×2 (08:14→21:18)
[2017-11-21] MEDS: DOCUSATE SODIUM 100 MG CAPSULE PO SCH ×2 (08:14→17:36)
[2017-11-21] MEDS: LOSARTAN POTASSIUM 50 MG TABLET PO SCH (08:15)
[2017-11-21] MEDS: HYDROCODONE/APAP 5/325MG 1 EACH TABLET PO PRN (08:15)
[2017-11-21] MEDS: ARIPIPRAZOLE 2 MG TABLET PO SCH (10:45)
[2017-11-21] MEDS: LIPASE/PROTEASE/AMYLASE 1 EACH CAPSULE.DR PO SCH ×3 (10:45→17:36)
[2017-11-21] MEDS: IV NS 0.9% 1,000 ML IV PRN (11:19)
[2017-11-21 16:00] VITALS: BP 111/61
[2017-11-21] MEDS: BOOST GLUCOSE CONTROL VANILLA 237 ML BOX PO SCH (18:00)
[2017-11-21 20:00] VITALS: BP 141/76
[2017-11-21] MEDS: CEFTRIAXONE 1 G in IV NS 0.9% 50 ML IV SCH (21:17)
[2017-11-21] MEDS: ARIPIPRAZOLE 5 MG TABLET PO SCH (21:17)
[2017-11-21] MEDS: MIRTAZAPINE 15 MG TABLET PO SCH (21:18)
[2017-11-22 06:43] LABS: CALCIUM, SERUM 8.2 mg/dL (8.5-10.1); CARBON DIOXIDE 24 mmol/L (21-32); CHLORIDE 107 mmol/L (98-107); GLUCOSE 108 mg/dL (74-106); LIPASE 132 U/L (73-393); MAGNESIUM 2.3 mg/dL (1.8-2.4); POTASSIUM 4.2 mmol/L (3.5-5.1); SODIUM SERUM 141 mmol/L (136-145); UREA NITROGEN, BLOOD 9 mg/dL (7-18)
[2017-11-22 06:46] LABS: BASOPHILS % (AUTO) 0.5 % (0.0-2.0); EOSINOPHILS # (AUTO) 0.1 /CMM (0.0-0.7); EOSINOPHILS % (AUTO) 1.2 % (0.0-6.0); HEMATOCRIT 31 % (33-45); HEMOGLOBIN 10.4 g/dL (11.5-14.8); LYMPHOCYTES # (AUTO) 2.8 /CMM (0.8-4.8); LYMPHOCYTES % (AUTO) 34.6 % (20.0-44.0); MEAN CORPUSCULAR HEMOGLOBIN 32 PG (26.0-33.0); MEAN CORPUSCULAR HGB CONC 34 g/dl (31.0-36.0); MEAN CORPUSCULAR VOLUME 94 fL (82-100); MONOCYTES # (AUTO) 0.4 /CMM (0.1-1.30); MONOCYTES % (AUTO) 5.2 % (2.0-12.0); NEUTROPHILS # (AUTO) 4.7 /CMM (1.8-8.9); NEUTROPHILS % (AUTO) 58.5 % (43.0-81.0); PLATELET COUNT (AUTO) 564 /CMM (150-450); RDW COEFFICIENT OF VARIATION 12.9 (11.5-15.0); RED BLOOD CELL COUNT(AUTO) 3.31 MIL/uL (4.0-5.2)
[2017-11-22] MEDS: IV NS 0.9% 1,000 ML IV PRN ×2 (06:46→18:21)
[2017-11-22 08:00] VITALS: BP 120/66
[2017-11-22] MEDS: BRIMONIDINE TARTRATE OPHT SOLN 5 ML BOTTLE EACHEYE SCH ×2 (08:50→21:13)
[2017-11-22] MEDS: PANTOPRAZOLE 40 MG TABLET.DR PO SCH (08:50)
[2017-11-22] MEDS: LOSARTAN POTASSIUM 50 MG TABLET PO SCH (08:50)
[2017-11-22] MEDS: LIPASE/PROTEASE/AMYLASE 1 EACH CAPSULE.DR PO SCH ×3 (08:50→17:43)
[2017-11-22] MEDS: DOCUSATE SODIUM 100 MG CAPSULE PO SCH ×2 (08:50→17:43)
[2017-11-22] MEDS: ARIPIPRAZOLE 2 MG TABLET PO SCH (08:50)
[2017-11-22] MEDS: BOOST GLUCOSE CONTROL VANILLA 237 ML BOX PO SCH ×4 (09:39→17:44)
[2017-11-22] MEDS: MAG HYDROX/AL HYDROX/SIMETH 30 ML UDC PO PRN (11:22)
[2017-11-22] MEDS: HYDROCODONE/APAP 5/325MG 1 EACH TABLET PO PRN (11:58)
[2017-11-22] MEDS: MORPHINE SULFATE INJ 4 MG/ML DISP.SYRIN IV PRN ×2 (13:58→21:12)
[2017-11-22] MEDS ORDERED: IMIPENEM/CILASTATIN 500 MG in IV NS 0.9% 100 ML IV SCH (14:00)
[2017-11-22] MEDS: MEROPENEM 500 MG in IV NS 0.9% 50 ML IV SCH (15:20)
[2017-11-22 16:00] VITALS: BP 151/74
[2017-11-22] MEDS: PANTOPRAZOLE 40 MG VIAL IV SCH (18:24)
[2017-11-22 20:00] VITALS: BP 146/70
[2017-11-22] MEDS: ZOLPIDEM TARTRATE 5 MG TABLET PO PRN (21:43)
[2017-11-22] MEDS: MIRTAZAPINE 15 MG TABLET PO SCH (21:43)
[2017-11-22] MEDS: ARIPIPRAZOLE 5 MG TABLET PO SCH (21:43)
[2017-11-23] MEDS: MORPHINE SULFATE INJ 4 MG/ML DISP.SYRIN IV PRN ×2 (02:35→20:49)
[2017-11-23] MEDS: MEROPENEM 500 MG in IV NS 0.9% 50 ML IV SCH ×2 (02:36→15:36)
[2017-11-23 06:33] LABS: BASOPHILS % (AUTO) 0.2 % (0.0-2.0); EOSINOPHILS # (AUTO) 0.1 /CMM (0.0-0.7); EOSINOPHILS % (AUTO) 0.8 % (0.0-6.0); HEMATOCRIT 33 % (33-45); LYMPHOCYTES # (AUTO) 2.6 /CMM (0.8-4.8); LYMPHOCYTES % (AUTO) 25.8 % (20.0-44.0); MEAN CORPUSCULAR HEMOGLOBIN 31 PG (26.0-33.0); MEAN CORPUSCULAR HGB CONC 34 g/dl (31.0-36.0); MEAN CORPUSCULAR VOLUME 93 fL (82-100); MONOCYTES # (AUTO) 0.5 /CMM (0.1-1.30); MONOCYTES % (AUTO) 4.6 % (2.0-12.0); NEUTROPHILS # (AUTO) 6.8 /CMM (1.8-8.9); NEUTROPHILS % (AUTO) 68.6 % (43.0-81.0); PLATELET COUNT (AUTO) 571 /CMM (150-450); RDW COEFFICIENT OF VARIATION 13.2 (11.5-15.0); RED BLOOD CELL COUNT(AUTO) 3.51 MIL/uL (4.0-5.2); WHITE BLOOD COUNT (AUTO) 9.9 K/uL (4.3-11.0)
[2017-11-23 06:40] LABS: ALANINE AMINOTRANSFERASE 26 U/L (12-78); ALBUMIN 3.3 g/dL (3.4-5.0); ALKALINE PHOSPHATASE 63 U/L (46-116); AMYLASE 46 U/L (25-115); ASPARTATE AMINOTRANSFERASE 19 U/L (15-37); BILIRUBIN,TOTAL 0.3 mg/dL (0.2-1.0); CALCIUM, SERUM 8.4 mg/dL (8.5-10.1); CARBON DIOXIDE 26 mmol/L (21-32); CHLORIDE 105 mmol/L (98-107); CREATININE 0.9 mg/dL (0.6-1.3); GLUCOSE 119 mg/dL (74-106); LIPASE 136 U/L (73-393); POTASSIUM 3.9 mmol/L (3.5-5.1); SODIUM SERUM 140 mmol/L (136-145); TOTAL PROTEIN, SERUM 7.1 g/dL (6.4-8.2); UREA NITROGEN, BLOOD 11 mg/dL (7-18)
[2017-11-23 06:50] LABS: IRON, SERUM 74 ug/dl (50-175); TOTAL IRON BINDING CAPACITY 262 ug/dl (250-450)
[2017-11-23 06:55] LABS: FERRITIN 179 ng/mL (8-388); THYROID STIMULATING HORMONE 3.571 uIU/mL (0.358-3.74)
[2017-11-23 08:00] VITALS: BP 154/80
[2017-11-23] MEDS: BOOST GLUCOSE CONTROL VANILLA 237 ML BOX PO SCH ×3 (08:00→17:56)
[2017-11-23] MEDS: LOSARTAN POTASSIUM 50 MG TABLET PO SCH (08:03)
[2017-11-23] MEDS: ARIPIPRAZOLE 2 MG TABLET PO SCH (08:03)
[2017-11-23] MEDS: LIPASE/PROTEASE/AMYLASE 1 EACH CAPSULE.DR PO SCH ×3 (08:03→16:28)
[2017-11-23] MEDS: DOCUSATE SODIUM 100 MG CAPSULE PO SCH ×2 (08:03→16:28)
[2017-11-23] MEDS: IV NS 0.9% 1,000 ML IV PRN ×2 (08:04→20:56)
[2017-11-23] MEDS: BRIMONIDINE TARTRATE OPHT SOLN 5 ML BOTTLE EACHEYE SCH ×2 (08:04→20:56)
[2017-11-23] MEDS ORDERED: MERO500V3 IV (11:00)
[2017-11-23] MEDS: HYDROCODONE/APAP 5/325MG 1 EACH TABLET PO PRN (12:07)
[2017-11-23 16:00] VITALS: BP 129/69
[2017-11-23] MEDS: PANTOPRAZOLE 40 MG VIAL IV SCH (17:55)
[2017-11-23 20:00] VITALS: BP 126/69
[2017-11-23] MEDS: MAG HYDROX/AL HYDROX/SIMETH 30 ML UDC PO PRN (21:08)
[2017-11-23] MEDS: MIRTAZAPINE 15 MG TABLET PO SCH (21:30)
[2017-11-23] MEDS: ARIPIPRAZOLE 5 MG TABLET PO SCH (21:30)
[2017-11-23] MEDS: ZOLPIDEM TARTRATE 5 MG TABLET PO PRN (21:30)
[2017-11-24] MEDS: MEROPENEM 500 MG in IV NS 0.9% 50 ML IV SCH ×2 (02:38→15:08)
[2017-11-24] MEDS: MORPHINE SULFATE INJ 4 MG/ML DISP.SYRIN IV PRN ×2 (02:39→09:41)
[2017-11-24 06:34] LABS: BASOPHILS % (AUTO) 0.4 % (0.0-2.0); EOSINOPHILS # (AUTO) 0.2 /CMM (0.0-0.7); EOSINOPHILS % (AUTO) 1.8 % (0.0-6.0); HEMATOCRIT 31 % (33-45); HEMOGLOBIN 10.4 g/dL (11.5-14.8); LYMPHOCYTES # (AUTO) 2.9 /CMM (0.8-4.8); LYMPHOCYTES % (AUTO) 33.8 % (20.0-44.0); MEAN CORPUSCULAR HEMOGLOBIN 31 PG (26.0-33.0); MEAN CORPUSCULAR HGB CONC 34 g/dl (31.0-36.0); MEAN CORPUSCULAR VOLUME 92 fL (82-100); MONOCYTES # (AUTO) 0.5 /CMM (0.1-1.30); MONOCYTES % (AUTO) 5.4 % (2.0-12.0); NEUTROPHILS # (AUTO) 5.1 /CMM (1.8-8.9); NEUTROPHILS % (AUTO) 58.6 % (43.0-81.0); PLATELET COUNT (AUTO) 531 /CMM (150-450); RDW COEFFICIENT OF VARIATION 13.3 (11.5-15.0); RED BLOOD CELL COUNT(AUTO) 3.33 MIL/uL (4.0-5.2); WHITE BLOOD COUNT (AUTO) 8.7 K/uL (4.3-11.0)
[2017-11-24 08:00] VITALS: BP 137/70
[2017-11-24] MEDS: ARIPIPRAZOLE 2 MG TABLET PO SCH (08:27)
[2017-11-24] MEDS: LIPASE/PROTEASE/AMYLASE 1 EACH CAPSULE.DR PO SCH ×3 (08:27→17:33)
[2017-11-24] MEDS: LOSARTAN POTASSIUM 50 MG TABLET PO SCH (08:29)
[2017-11-24] MEDS: BOOST GLUCOSE CONTROL VANILLA 237 ML BOX PO SCH ×3 (08:29→17:33)
[2017-11-24] MEDS: BRIMONIDINE TARTRATE OPHT SOLN 5 ML BOTTLE EACHEYE SCH ×2 (08:30→21:20)
[2017-11-24] MEDS: DOCUSATE SODIUM 100 MG CAPSULE PO SCH ×2 (08:30→17:33)
[2017-11-24] MEDS: IV NS 0.9% 1,000 ML IV PRN ×2 (09:41→20:15)
[2017-11-24 16:00] VITALS: BP 131/74
[2017-11-24] MEDS: PANTOPRAZOLE 40 MG VIAL IV SCH (17:33)
[2017-11-24 19:58] VITALS: BP 155/84
[2017-11-24 20:00] VITALS: BP 155/84
[2017-11-24] MEDS ORDERED: MAGNESIUM CITRATE 296 ML BOTTLE PO ONE (20:30)
[2017-11-24] MEDS ORDERED: PEG 3350/NA SULF,BICARB,CL/KCL 4,000 ML BOTTLE PO ONE (20:30)
[2017-11-24] MEDS: ARIPIPRAZOLE 5 MG TABLET PO SCH (21:19)
[2017-11-24] MEDS: MIRTAZAPINE 15 MG TABLET PO SCH (21:19)
[2017-11-24 22:04] LABS: INR 0.94 (0.87-1.13)
[2017-11-25] MEDS: MORPHINE SULFATE INJ 4 MG/ML DISP.SYRIN IV PRN ×2 (01:49→15:52)
[2017-11-25] MEDS: MEROPENEM 500 MG in IV NS 0.9% 50 ML IV SCH ×2 (03:22→15:23)
[2017-11-25 05:57] LABS: OCCULT BLOOD STOOL NEGATIVE (NEGATIVE)
[2017-11-25] MEDS: IV NS 0.9% 1,000 ML IV PRN ×2 (06:05→20:33)
[2017-11-25 06:42] LABS: BASOPHILS % (AUTO) 0.4 % (0.0-2.0); EOSINOPHILS # (AUTO) 0.1 /CMM (0.0-0.7); EOSINOPHILS % (AUTO) 1.8 % (0.0-6.0); HEMATOCRIT 31 % (33-45); HEMOGLOBIN 10.5 g/dL (11.5-14.8); LYMPHOCYTES % (AUTO) 38.3 % (20.0-44.0); MEAN CORPUSCULAR HEMOGLOBIN 31 PG (26.0-33.0); MEAN CORPUSCULAR HGB CONC 33 g/dl (31.0-36.0); MEAN CORPUSCULAR VOLUME 92 fL (82-100); MONOCYTES # (AUTO) 0.5 /CMM (0.1-1.30); MONOCYTES % (AUTO) 6.2 % (2.0-12.0); NEUTROPHILS # (AUTO) 4.2 /CMM (1.8-8.9); NEUTROPHILS % (AUTO) 53.3 % (43.0-81.0); PLATELET COUNT (AUTO) 548 /CMM (150-450); RDW COEFFICIENT OF VARIATION 13.5 (11.5-15.0); RED BLOOD CELL COUNT(AUTO) 3.39 MIL/uL (4.0-5.2); WHITE BLOOD COUNT (AUTO) 7.9 K/uL (4.3-11.0)
[2017-11-25 06:57] LABS: CALCIUM, SERUM 8.7 mg/dL (8.5-10.1); CARBON DIOXIDE 27 mmol/L (21-32); CHLORIDE 110 mmol/L (98-107); CREATININE 0.9 mg/dL (0.6-1.3); GLUCOSE 101 mg/dL (74-106); POTASSIUM 3.7 mmol/L (3.5-5.1); SODIUM SERUM 146 mmol/L (136-145); UREA NITROGEN, BLOOD 9 mg/dL (7-18)
[2017-11-25] MEDS: NA PHOS,M-B/NA PHOS,DI-BA 1 EA ENEMA RC PRN ×2 (06:59→09:17)
[2017-11-25 07:18] LABS: IMMUNOGLOBULIN A, SERUM 205 mg/dL (64-422); IMMUNOGLOBULIN G, SERUM 1201 mg/dL (700-1600); IMMUNOGLOBULIN M, SERUM 70 mg/dL (26-217)
[2017-11-25 08:00] VITALS: BP 139/70
[2017-11-25] MEDS: BOOST GLUCOSE CONTROL VANILLA 237 ML BOX PO SCH ×3 (08:00→17:31)
[2017-11-25] MEDS: DOCUSATE SODIUM 100 MG CAPSULE PO SCH ×2 (09:00→17:00)
[2017-11-25] MEDS: LOSARTAN POTASSIUM 50 MG TABLET PO SCH (09:00)
[2017-11-25] MEDS: ARIPIPRAZOLE 2 MG TABLET PO SCH (09:00)
[2017-11-25] MEDS: LIPASE/PROTEASE/AMYLASE 1 EACH CAPSULE.DR PO SCH ×3 (09:00→17:31)
[2017-11-25] MEDS ORDERED: ANESTHESIA TRAY IN PYXIS 1 EA TRAY MC ONE (09:14)
[2017-11-25] MEDS: BRIMONIDINE TARTRATE OPHT SOLN 5 ML BOTTLE EACHEYE SCH ×2 (11:39→20:29)
[2017-11-25 16:00] VITALS: BP 134/72
[2017-11-25] MEDS: PANTOPRAZOLE 40 MG VIAL IV SCH (17:31)
[2017-11-25] MEDS ORDERED: KEY,NONCONTROL,TO KEEP IN PYXI 1 EA MC ONE (19:22)
[2017-11-25 20:00] VITALS: BP 140/76
[2017-11-25] MEDS: ARIPIPRAZOLE 5 MG TABLET PO SCH (21:42)
[2017-11-25] MEDS: MIRTAZAPINE 15 MG TABLET PO SCH (21:42)
[2017-11-25] MEDS: ZOLPIDEM TARTRATE 5 MG TABLET PO PRN (21:42)
[2017-11-26] MEDS: MEROPENEM 500 MG in IV NS 0.9% 50 ML IV SCH ×2 (03:03→15:33)
[2017-11-26] MEDS: IV NS 0.9% 1,000 ML IV PRN ×2 (06:34→21:13)
[2017-11-26 08:00] VITALS: BP 147/70
[2017-11-26] MEDS: BOOST GLUCOSE CONTROL VANILLA 237 ML BOX PO SCH ×3 (08:37→17:17)
[2017-11-26] MEDS: LIPASE/PROTEASE/AMYLASE 1 EACH CAPSULE.DR PO SCH ×3 (08:37→16:10)
[2017-11-26] MEDS: DOCUSATE SODIUM 100 MG CAPSULE PO SCH ×2 (08:37→16:11)
[2017-11-26] MEDS: LOSARTAN POTASSIUM 50 MG TABLET PO SCH (08:37)
[2017-11-26] MEDS: ARIPIPRAZOLE 2 MG TABLET PO SCH (08:37)
[2017-11-26] MEDS: BRIMONIDINE TARTRATE OPHT SOLN 5 ML BOTTLE EACHEYE SCH ×2 (08:43→21:13)
[2017-11-26 09:09] LABS: BASOPHILS % (AUTO) 0.3 % (0.0-2.0); EOSINOPHILS # (AUTO) 0.1 /CMM (0.0-0.7); EOSINOPHILS % (AUTO) 1.8 % (0.0-6.0); HEMATOCRIT 30 % (33-45); HEMOGLOBIN 10.2 g/dL (11.5-14.8); LYMPHOCYTES # (AUTO) 1.5 /CMM (0.8-4.8); LYMPHOCYTES % (AUTO) 22.9 % (20.0-44.0); MEAN CORPUSCULAR HEMOGLOBIN 32 PG (26.0-33.0); MEAN CORPUSCULAR HGB CONC 34 g/dl (31.0-36.0); MEAN CORPUSCULAR VOLUME 92 fL (82-100); MONOCYTES # (AUTO) 0.3 /CMM (0.1-1.30); MONOCYTES % (AUTO) 4.1 % (2.0-12.0); NEUTROPHILS # (AUTO) 4.7 /CMM (1.8-8.9); NEUTROPHILS % (AUTO) 70.9 % (43.0-81.0); PLATELET COUNT (AUTO) 462 /CMM (150-450); RDW COEFFICIENT OF VARIATION 13.4 (11.5-15.0); RED BLOOD CELL COUNT(AUTO) 3.23 MIL/uL (4.0-5.2); WHITE BLOOD COUNT (AUTO) 6.6 K/uL (4.3-11.0)
[2017-11-26 09:24] LABS: CALCIUM, SERUM 8.4 mg/dL (8.5-10.1); CARBON DIOXIDE 24 mmol/L (21-32); CHLORIDE 108 mmol/L (98-107); CREATININE 0.7 mg/dL (0.6-1.3); GLUCOSE 178 mg/dL (74-106); MAGNESIUM 1.6 mg/dL (1.8-2.4); POTASSIUM 3.5 mmol/L (3.5-5.1); SODIUM SERUM 143 mmol/L (136-145); UREA NITROGEN, BLOOD 8 mg/dL (7-18)
[2017-11-26] MEDS: Magnesium 1GM/D5W 100ML PREMIX 100 ML IV SCH ×2 (12:27→13:34)
[2017-11-26 16:00] VITALS: BP_SYST 138; BP_SYST 147; BP_DIAS 70; BP_DIAS 75
[2017-11-26] MEDS: PANTOPRAZOLE 40 MG VIAL IV SCH (17:15)
[2017-11-26] MEDS: MIRTAZAPINE 15 MG TABLET PO SCH (21:13)
[2017-11-26] MEDS: ARIPIPRAZOLE 5 MG TABLET PO SCH (21:13)
[2017-11-26] MEDS: ZOLPIDEM TARTRATE 5 MG TABLET PO PRN (21:13)
[2017-11-27] MEDS: MEROPENEM 500 MG in IV NS 0.9% 50 ML IV SCH (02:58)
[2017-11-27] MEDS: MAG HYDROX/AL HYDROX/SIMETH 30 ML UDC PO PRN (05:13)
[2017-11-27 07:01] LABS: BASOPHILS % (AUTO) 0.5 % (0.0-2.0); EOSINOPHILS # (AUTO) 0.1 /CMM (0.0-0.7); EOSINOPHILS % (AUTO) 1.5 % (0.0-6.0); HEMATOCRIT 29 % (33-45); HEMOGLOBIN 9.6 g/dL (11.5-14.8); LYMPHOCYTES # (AUTO) 1.8 /CMM (0.8-4.8); LYMPHOCYTES % (AUTO) 25.6 % (20.0-44.0); MEAN CORPUSCULAR HEMOGLOBIN 31 PG (26.0-33.0); MEAN CORPUSCULAR HGB CONC 34 g/dl (31.0-36.0); MEAN CORPUSCULAR VOLUME 92 fL (82-100); MONOCYTES # (AUTO) 0.4 /CMM (0.1-1.30); MONOCYTES % (AUTO) 5.8 % (2.0-12.0); NEUTROPHILS # (AUTO) 4.7 /CMM (1.8-8.9); NEUTROPHILS % (AUTO) 66.6 % (43.0-81.0); PLATELET COUNT (AUTO) 458 /CMM (150-450); RDW COEFFICIENT OF VARIATION 13.6 (11.5-15.0); RED BLOOD CELL COUNT(AUTO) 3.12 MIL/uL (4.0-5.2); WHITE BLOOD COUNT (AUTO) 7.1 K/uL (4.3-11.0)
[2017-11-27 07:07] LABS: CALCIUM, SERUM 8.4 mg/dL (8.5-10.1); CARBON DIOXIDE 27 mmol/L (21-32); CHLORIDE 107 mmol/L (98-107); CREATININE 0.7 mg/dL (0.6-1.3); GLUCOSE 106 mg/dL (74-106); MAGNESIUM 2.1 mg/dL (1.8-2.4); POTASSIUM 3.3 mmol/L (3.5-5.1); SODIUM SERUM 143 mmol/L (136-145); UREA NITROGEN, BLOOD 9 mg/dL (7-18)
[2017-11-27 08:00] VITALS: BP 153/69
[2017-11-27] MEDS: DOCUSATE SODIUM 100 MG CAPSULE PO SCH ×2 (08:10→16:06)
[2017-11-27] MEDS: LOSARTAN POTASSIUM 50 MG TABLET PO SCH (08:10)
[2017-11-27] MEDS: ARIPIPRAZOLE 2 MG TABLET PO SCH (08:10)
[2017-11-27] MEDS: LIPASE/PROTEASE/AMYLASE 1 EACH CAPSULE.DR PO SCH ×3 (08:13→16:06)
[2017-11-27] MEDS: BRIMONIDINE TARTRATE OPHT SOLN 5 ML BOTTLE EACHEYE SCH (08:15)
[2017-11-27] MEDS: BOOST GLUCOSE CONTROL VANILLA 237 ML BOX PO SCH ×2 (09:12→13:27)
[2017-11-27] MEDS ORDERED: POTASSIUM CHLORIDE 20 MEQ TAB.PRT.SR PO SCH (12:00)
[2017-11-27 12:09] LABS: *SPE A/G RATIO 1.1 (0.7-1.7); *SPE ALBUMIN 3.4 g/dL (2.9-4.4); *SPE ALPHA-1-GLOBULIN 0.2 g/dL (0.0-0.4); *SPE ALPHA-2-GLOBULIN 0.7 g/dL (0.4-1.0); *SPE BETA GLOBULIN 0.8 g/dL (0.7-1.3); *SPE M-SPIKE Not Observed g/dL (Not Observed); *SPEGAMMA GLOBULIN 1.3 g/dL (0.4-1.8)
[2017-11-27] MEDS: IV NS 0.9% 1,000 ML IV PRN (12:28)
[2017-11-27] MEDS ORDERED: SULFAMETH/TRIMETH 800/160 MG 1 UDTAB TABLET PO ONE (13:31)
[2017-11-27] MEDS ORDERED: SULF1TAB48 PO (14:00)
[2017-11-27 16:00] VITALS: BP 158/71
[2017-11-27] MEDS ORDERED: SULFAMETH/TRIMETH 800/160 MG 1 UDTAB TABLET PO SCH (21:00)
== END 2017-11-27 17:15 | DRG 391 ==
LOC: ER 17:14 → MEDSG2 19:43
PROVIDERS: ADMIT Internal Medicine; ATTEND Internal Medicine
PROC: 0DJD8ZZ Inspection of Lower Intestinal Tract, Via Natural or Artificial Opening Endoscopic (ICD-10-PCS; principal; 2017-11-25 10:42)
PROC: 0DB68ZX Excision of Stomach, Via Natural or Artificial Opening Endoscopic, Diagnostic (ICD-10-PCS; 2017-11-25 10:42)
DX: K29.70 Gastritis, unspecified, without bleeding (principal); K85.90 Acute pancreatitis without necrosis or infection, unspecified; G92 Toxic encephalopathy; N17.9 Acute kidney failure, unspecified; K86.1 Other chronic pancreatitis; E87.0 Hyperosmolality and hypernatremia; N39.0 Urinary tract infection, site not specified; Z68.1 Body mass index [BMI] 19.9 or less, adult; E88.09 Other disorders of plasma-protein metabolism, not elsewhere classified; E83.41 Hypermagnesemia; E86.0 Dehydration; F03.90 Unspecified dementia, unspecified severity, without behavioral disturbance, psychotic disturbance, mood disturbance, and anxiety; K21.9 Gastro-esophageal reflux disease without esophagitis; B96.20 Unspecified Escherichia coli [E. coli] as the cause of diseases classified elsewhere; K57.30 Diverticulosis of large intestine without perforation or abscess without bleeding; F32.9 Major depressive disorder, single episode, unspecified; F41.9 Anxiety disorder, unspecified; I10 Essential (primary) hypertension; K64.8 Other hemorrhoids; R62.7 Adult failure to thrive; D47.3 Essential (hemorrhagic) thrombocythemia; D63.8 Anemia in other chronic diseases classified elsewhere; F29 Unspecified psychosis not due to a substance or known physiological condition; R63.0 Anorexia; Z16.12 Extended spectrum beta lactamase (ESBL) resistance; E11.9 Type 2 diabetes mellitus without complications; H40.9 Unspecified glaucoma; Z79.4 Long term (current) use of insulin
CPT/HCPCS: 36415; 71045-TC; 80048-TC; 80053-TC; 80076-TC; 81000-TC; 82150-TC; 82272-TC; 82728-TC; 82746; 82784; 83540-TC; 83690-TC; 83735-TC; 83891; 83900; 83909; 83912; 84100-TC; 84155; 84165; 84439-TC; 84443-TC; 84484-TC; 85025-TC; 85610-TC; 85730-TC; 86334; 87081-TC; 87086-TC; 87186-TC; 88305-TC; 88313-TC; 88342; 92611-TC; A4216; A4606; C9113; J0696; J0743; J2185; J2270; J3475; J7030; Z7610

== ENCOUNTER 2018-01-12 16:14 | Inpatient (IN) | payer MEDICARE, MEDICAID ==
[~2018-01-12] VITALS: Ht 147.3 cm; Wt 34.5 kg
[~2018-01-12 16:14] MED LIST changes: +ACET-2605 PO; +ACET-868 PO; -AMYL1CAP56 PO; +ARIP2TAB3 PO; +ARIP5TAB10 PO; -BIMA2.5D5 EACHEYE; -BLOO-668 IN; +DOCU-141 PO; +ESCI10TA PO; -GLIM2TAB2 PO; -INSU100C10 SQ; +LIPA1CAP27 PO; -LOSA100T15 PO; +LOSA100T3 PO; +MIRT15TA PO; +NA P133E RC; -OMEP20CA10 PO; +PANT40TA4 PO; +SULF1TAB48 PO
--- NOTE | 2018-01-12 16:14 | NUR ---
BIBPA FROM SNF C/O ABDOMINAL PAIN AND GENERALIZED WEAKNESS. PLACED ON MONITOR.AWAITING MD ORDER
[2018-01-12] MEDS ORDERED: PANTOPRAZOLE 40 MG VIAL IV ONE (16:30)
[2018-01-12] MEDS ORDERED: IV NS 0.9% 500 ML BAG IV ONE (16:30)
[2018-01-12] MEDS ORDERED: PANTOPRAZOLE 40 MG VIAL ONE (16:34)
[2018-01-12 16:45] LABS: BASOPHILS % (AUTO) 0.6 % (0.0-2.0); EOSINOPHILS % (AUTO) 0.8 % (0.0-6.0); HEMATOCRIT 29 % (33-45); HEMOGLOBIN 9.9 g/dL (11.5-14.8); LYMPHOCYTES # (AUTO) 2.3 /CMM (0.8-4.8); LYMPHOCYTES % (AUTO) 36.6 % (20.0-44.0); MEAN CORPUSCULAR HGB CONC 34 g/dl (31.0-36.0); MEAN CORPUSCULAR VOLUME 91 fL (82-100); MONOCYTES # (AUTO) 0.4 /CMM (0.1-1.30); MONOCYTES % (AUTO) 6.4 % (2.0-12.0); NEUTROPHILS # (AUTO) 3.6 /CMM (1.8-8.9); NEUTROPHILS % (AUTO) 55.6 % (43.0-81.0); PLATELET COUNT (AUTO) 490 /CMM (150-450); RDW COEFFICIENT OF VARIATION 13.4 (11.5-15.0); WHITE BLOOD COUNT (AUTO) 6.4 K/uL (4.3-11.0)
[2018-01-12 16:56] LABS: CALCIUM, SERUM 8.8 mg/dL (8.5-10.1); CARBON DIOXIDE 26 mmol/L (21-32); CHLORIDE 103 mmol/L (98-107); CREATININE 1.2 mg/dL (0.6-1.3); GLUCOSE 124 mg/dL (74-106); POTASSIUM 4.6 mmol/L (3.5-5.1); SODIUM SERUM 135 mmol/L (136-145); UREA NITROGEN, BLOOD 26 mg/dL (7-18)
[2018-01-12 17:02] LABS: ALANINE AMINOTRANSFERASE 21 U/L (12-78); ALBUMIN 3.7 g/dL (3.4-5.0); ALKALINE PHOSPHATASE 48 U/L (46-116); ASPARTATE AMINOTRANSFERASE 19 U/L (15-37); BILIRUBIN,TOTAL 0.2 mg/dL (0.2-1.0); LIPASE 161 U/L (73-393); TOTAL PROTEIN, SERUM 7.2 g/dL (6.4-8.2)
--- NOTE | 2018-01-12 17:02 | NUR ---
PT TAKEN TO CT
[2018-01-12 17:03] LABS: TROPONIN I < 0.017 ng/mL (0.00-0.056)
[2018-01-12 17:06] LABS: INR 0.9 (0.85-1.15)
[2018-01-12 17:09] LABS: APPEARANCE,URINE Clear (CLEAR); BILIRUBIN,URINE Negative (NEGATIVE); BLOOD, URINE Negative Ery/uL (NEGATIVE); COLOR,URINE Yellow (YELLOW); KETONES,URINE Negative (NEGATIVE); LEUKOCYTE ESTERASE ,URINE Negative (NEGATIVE); NITRITE, URINE Negative (NEGATIVE); PROTEIN,URINE Negative (NEGATIVE); UGLUCOSE Negative (NEGATIVE); UROBILINOGEN,URINE 0.2 EU/dL (0.2)
[2018-01-12] MEDS ORDERED: MORPHINE SULFATE INJ 4 MG/ML DISP.SYRIN ONE (18:19)
[2018-01-12] MEDS ORDERED: LACTULOSE 10 G/15 ML UDC (PYXIS) ONE (18:19)
[2018-01-12] MEDS ORDERED: MORPHINE SULFATE INJ 2 MG/ML DISP.SYRIN IV ONE (18:30)
[2018-01-12] MEDS ORDERED: LACTULOSE 10 G/15 ML UDC (PYXIS) PO ONE (18:30)
--- NOTE | 2018-01-12 19:46 | NUR ---
MS 206-1 FOR ABDOMINAL PAIN, CAMRYN POWERS ADMITTING
--- NOTE | 2018-01-12 19:59 | NUR ---
REPORT GIVEN TO DONALD NAILS FOR CORBY UPON ADMISSION.
[2018-01-12 20:00] VITALS: BP 117/69
--- NOTE | 2018-01-12 20:02 | NUR ---
PATIENT TRANSPORTED TO 206 VIA STRETCHER. RNDONALD TO PROVIDE CORBY.
--- NOTE | 2018-01-12 20:15 | NUR ---
RN ADMITTING NOTES RECEIVED REPORT FROM SHEET MILL SUPERVISOR HAYDEN. Pt ARRIVED TO THE FLOOR VIA GURNEY. STAFF WAS ABLE TO TRANSFER Pt SAFELY TO THE BED. Pt IS A/OX2, WITH SOME CONFUSION, ABLE TO STATE NAME & YEAR CORRECTLY. IV ACCESS ON RAC#20G, SL. NO S/S OF ACUTE DISTRESS OR SOB NOTED. SAFETY MEASURES IN PLACE. BED LOW, LOCKED, HOB ELEVATED, SIDE RAILS UP, CALL LIGHT AND BEDSIDE TABLE WITHIN REACH. WILL CONTINUE TO MONITOR Pt THROUGHOUT THE NIGHT FOR SAFETY.
[2018-01-12 20:40] VITALS: BP 117/69
--- NOTE | 2018-01-12 20:53 | NUR ---
RN NOTES ENDORSEMENT GIVEN TO JESU DAVID FOR Pt'S CORBY.
--- NOTE | 2018-01-12 21:00 | NUR ---
MS/RN NOTES RECEIVED ENDORSEMENT FROM AM RN FOR CORBY. MD TACK WELDER CONTACTED FOR ADMISSION AND MEDICATION RECONCILLATION, ORDER RECEIVED, ALERT, ORIENTED X2, ABLE TO STATE NAME AND VERBALIZE NEEDS, SKIN WARM TO TOUCH REPORTED UNABLE TO SLEEP AND NEED FOR SLEEP MEDICATION, IV FLUIDS ADMINISTERED, IV ON RIGHT AC, PATENT W/ NO S/S OF INFILTRATION, PATIENT RESTING COMFORTABLY IN BED, PROVIDED CARE AND WILL CONTINUE TO MONITOR.
[2018-01-12] MEDS ORDERED: HYDROCODONE/APAP 5/325MG 1 EACH TABLET PO PRN (22:30)
[2018-01-12] MEDS ORDERED: MAGNESIUM HYDROXIDE 30 ML UDC PO PRN (22:30)
[2018-01-12] MEDS ORDERED: ONDANSETRON HCL/PF 4 MG/2 ML VIAL IVP PRN (22:30)
[2018-01-12] MEDS ORDERED: Z GUARD REMEDY 2 OZ OINT TP PRN (22:30)
[2018-01-12] MEDS: ZOLPIDEM TARTRATE 5 MG TABLET PO PRN (22:46)
[2018-01-12] MEDS: IV NS 0.9% 1,000 ML IV PRN (23:13)
[2018-01-13] MEDS: LACTULOSE 10 G/15 ML UDC (PYXIS) PO SCH ×4 (03:21→21:12)
[2018-01-13 06:35] LABS: BASOPHILS % (AUTO) 0.6 % (0.0-2.0); EOSINOPHILS % (AUTO) 0.8 % (0.0-6.0); HEMATOCRIT 30 % (33-45); HEMOGLOBIN 10.2 g/dL (11.5-14.8); LYMPHOCYTES # (AUTO) 2.2 /CMM (0.8-4.8); LYMPHOCYTES % (AUTO) 33.2 % (20.0-44.0); MEAN CORPUSCULAR HGB CONC 34 g/dl (31.0-36.0); MEAN CORPUSCULAR VOLUME 93 fL (82-100); MONOCYTES # (AUTO) 0.4 /CMM (0.1-1.30); MONOCYTES % (AUTO) 6.5 % (2.0-12.0); NEUTROPHILS # (AUTO) 3.8 /CMM (1.8-8.9); NEUTROPHILS % (AUTO) 58.9 % (43.0-81.0); PLATELET COUNT (AUTO) 481 /CMM (150-450); RDW COEFFICIENT OF VARIATION 14.4 (11.5-15.0); RED BLOOD CELL COUNT(AUTO) 3.24 MIL/uL (4.0-5.2); WHITE BLOOD COUNT (AUTO) 6.5 K/uL (4.3-11.0)
--- NOTE | 2018-01-13 06:59 | NUR ---
MS/RN CLOSING NOTES PATIETN IN BED, AWAKE, ALERT X2, ABLE TO MAKE NEEDS KNOWN , REQUIRING FREQUENT MONITORING, RESPIRATIONS EVEN AND UNLABORED. SKIN WARM TO TOUCH, CALL LIGHTS WITHIN REACH. BED IN LOCK POSITION WILL MONITOR AND ENDORSE TO AM RN FOR CORBY.
[2018-01-13 07:11] LABS: CHOLESTEROL 175 mg/dL (<200); HDL CHOLESTEROL 57 mg/dL (40-60); LDL 99 mg/dL (0-99); TRIGLYCERIDES 159 mg/dL (30-150)
[2018-01-13 07:16] LABS: CALCIUM, SERUM 8.5 mg/dL (8.5-10.1); CARBON DIOXIDE 25 mmol/L (21-32); CHLORIDE 105 mmol/L (98-107); GLUCOSE 113 mg/dL (74-106); MAGNESIUM 2.2 mg/dL (1.8-2.4); PHOSPHORUS 3.8 mg/dL (2.5-4.9); POTASSIUM 3.9 mmol/L (3.5-5.1); SODIUM SERUM 140 mmol/L (136-145); UREA NITROGEN, BLOOD 20 mg/dL (7-18)
--- NOTE | 2018-01-13 07:30 | NUR ---
RN MS NOTES PT IN BED, AWAKE, ALERT AND VERBALLY RESPONSIVE, DENIES PAIN OR ANY DISCOMFORT, BREATHING PATTERN NORMAL, CALL LIGHT WITHIN REACH, NEEDS ATTENDED, KEPT COMFORTABLE.
[2018-01-13 08:00] VITALS: BP 131/75
[2018-01-13] MEDS: BRIMONIDINE TARTRATE OPHT SOLN 5 ML BOTTLE EACHEYE SCH ×2 (09:33→16:05)
[2018-01-13] MEDS: ARIPIPRAZOLE 2 MG TABLET PO SCH (09:34)
[2018-01-13] MEDS: PANTOPRAZOLE 40 MG TABLET.DR PO SCH (09:34)
[2018-01-13] MEDS: ESCITALOPRAM OXALATE (10 MG) 10 MG TABLET PO SCH (09:34)
--- NOTE | 2018-01-13 11:38 | NUR ---
RN MS NOTES PT IN BED, AWAKE, DENIES PAIN, RESPIRATIONS NORMAL AND NOT LABORED, IV FLUIDS INFUSING WELL, SEEN BY EHSAN FOR DR. POWERS, AWAITING FURTHER ORDERS FROM MD, CALL LIGHT WITHIN REACH.
[2018-01-13] MEDS: MAG HYDROX/AL HYDROX/SIMETH 30 ML UDC PO PRN (13:21)
[2018-01-13] MEDS: ACETAMINOPHEN 325 MG TABLET PO PRN (15:45)
[2018-01-13 16:00] VITALS: BP 132/71
--- NOTE | 2018-01-13 19:00 | NUR ---
BARBER SHOP MANAGER NOTES RECEIVE PT IN BED A/O X 2, NO S/S OF DISTRESS, SAFETY MEASURES IN PLACE, CALL LIGHT WITHIN REACH, WILL CONTINUE TO MONITOR
--- NOTE | 2018-01-13 19:00 | NUR ---
RN MS NOTES PT IN BED, AWAKE, ALERT AND VERBALLY RESPONSIVE, ABLE TO MAKE NEEDS KNOWN, NO COMPLAINT OF PAIN, NOT IN DISTRESS, IV FLUIDS INFUSING WELL, CALL LIGHT WITHIN REACH, NEEDS ATTENDED TO, ASSISTED WITH MEALS, KEPT CLEAN, DRY AND COMFORTABLE.
[2018-01-13 20:00] VITALS: BP 115/65
[2018-01-13] MEDS: ARIPIPRAZOLE 5 MG TABLET PO SCH (21:12)
[2018-01-13] MEDS: IV NS 0.9% 1,000 ML IV PRN (21:12)
[2018-01-13] MEDS: MIRTAZAPINE 15 MG TABLET PO SCH (21:12)
[2018-01-13] MEDS: ZOLPIDEM TARTRATE 5 MG TABLET PO PRN (21:16)
[2018-01-14] MEDS: LACTULOSE 10 G/15 ML UDC (PYXIS) PO SCH ×5 (03:19→21:00)
--- NOTE | 2018-01-14 06:33 | NUR ---
MS RN NOTES ASLEEP AND EASILY AWAKEN, HOB ELEVATED, STABLE NO S/S OF ACUTE DISTRESS OR SOB NOTED. TOLERATING ROOM AIR 100% RESPIRATIONS EVEN AND UNLABORED. NEEDS ATTENDED AND ANTICIPATED; AFEBRILE, KEPT CLEAN AND DRY AND COMFORTABLE. NURSING CARE RENDERED, ASSISTED REPOSITION EVERY 2 HOURS, BLE OFFLOADED. SAFETY MEASURES IN PLACE. BED LOW LOCKED SIDE RAILS UP, CALL LIGHT AND BEDSIDE TABLE WITHIN REACH. ENDORSE TO THE NEXT SHIFT POC.
[2018-01-14 06:50] LABS: BASOPHILS % (AUTO) 0.5 % (0.0-2.0); EOSINOPHILS % (AUTO) 0.8 % (0.0-6.0); HEMATOCRIT 29 % (33-45); HEMOGLOBIN 9.9 g/dL (11.5-14.8); LYMPHOCYTES # (AUTO) 2.4 /CMM (0.8-4.8); LYMPHOCYTES % (AUTO) 33.2 % (20.0-44.0); MEAN CORPUSCULAR HGB CONC 34 g/dl (31.0-36.0); MEAN CORPUSCULAR VOLUME 92 fL (82-100); MONOCYTES # (AUTO) 0.4 /CMM (0.1-1.30); MONOCYTES % (AUTO) 5.4 % (2.0-12.0); NEUTROPHILS # (AUTO) 4.4 /CMM (1.8-8.9); NEUTROPHILS % (AUTO) 60.1 % (43.0-81.0); PLATELET COUNT (AUTO) 434 /CMM (150-450); RDW COEFFICIENT OF VARIATION 14.2 (11.5-15.0); RED BLOOD CELL COUNT(AUTO) 3.18 MIL/uL (4.0-5.2); WHITE BLOOD COUNT (AUTO) 7.2 K/uL (4.3-11.0)
[2018-01-14 07:17] LABS: CALCIUM, SERUM 8.6 mg/dL (8.5-10.1); CARBON DIOXIDE 25 mmol/L (21-32); CHLORIDE 106 mmol/L (98-107); CREATININE 0.9 mg/dL (0.6-1.3); GLUCOSE 90 mg/dL (74-106); MAGNESIUM 2.3 mg/dL (1.8-2.4); PHOSPHORUS 3.5 mg/dL (2.5-4.9); SODIUM SERUM 141 mmol/L (136-145); UREA NITROGEN, BLOOD 14 mg/dL (7-18)
--- NOTE | 2018-01-14 07:30 | NUR ---
RN MS NOTES PT IN BED, ASLEEP, EASY TO AROUSE, ALERT AND VERBALLY RESPONSIVE, DENIES PAIN, RESPIRATIONS NORMAL AND NOT LABORED, CALL LIGHT WITHIN REACH, IV FLUIDS INFUSING WELL, ASSISTED IN TURNING AND REPOSITIONING, KEPT WARM AND COMFORTABLE.
[2018-01-14 08:00] VITALS: BP 141/80
[2018-01-14] MEDS: PANTOPRAZOLE 40 MG TABLET.DR PO SCH (09:18)
[2018-01-14] MEDS: BRIMONIDINE TARTRATE OPHT SOLN 5 ML BOTTLE EACHEYE SCH ×2 (09:18→16:56)
[2018-01-14] MEDS: ARIPIPRAZOLE 2 MG TABLET PO SCH (09:18)
[2018-01-14] MEDS: ESCITALOPRAM OXALATE (10 MG) 10 MG TABLET PO SCH (09:18)
--- NOTE | 2018-01-14 13:04 | NUR ---
RN MS NOTES PT IN BED, AWAKE, ABLE TO MAKE NEEDS KNOWN, DENIES PAIN OR ANY DISCOMFORT, BREATHING PATTERN NORMAL, CALL LIGHT WITHIN REACH, KEPT CLEAN AND DRY, TOLERATING CURRENT DIET WELL, KEPT COMFORTABLE.
[2018-01-14] MEDS ORDERED: BISACODYL SUPP (10 MG) 10 MG/SUPP.RECT SUPP.RECT RC PRN (15:30)
[2018-01-14 16:00] VITALS: BP 150/77
[2018-01-14] MEDS: ACETAMINOPHEN 325 MG TABLET PO PRN (16:51)
--- NOTE | 2018-01-14 18:44 | NUR ---
RN MS NOTES PT IN BED, AWAKE, ALERT AND ABLE TO MAKE NEEDS KNOWN, NO COMPLAINT OF PAIN, NOT IN DISTRESS, CALL LIGHT WITHIN REACH, IV FLUIDS INFUSING WELL, DULCOLAX GIVEN ORDERED, PT ABLE TO MAKE A LARGE REGULAR BOWEL MOVEMENT, VERBALIZED RELIEF, PM MEDS GIVEN, PM CARE DONE, ALL NEEDS ATTENDED.
--- NOTE | 2018-01-14 19:30 | NUR ---
RN NOTES RECEIVED PATIENT IN BED AWAKE, AO X 2, ABLE TO MAKE NEEDS KNOWN. NO ACUTE DISTRESS NOTED. DENIES ANY PAIN AT THIS TIME. IV SITE PATENT, INTACT; FLUSHED. SAFETY REMINDERS GIVEN. ON LOW BED WITH BILATERAL UPPER SIDE RAILS UP. CALL NIEVES WITHIN EASY REACH. WILL CONTINUE TO MONITOR.
[2018-01-14 20:00] VITALS: BP 126/70
[2018-01-14] MEDS: ARIPIPRAZOLE 5 MG TABLET PO SCH (21:14)
[2018-01-14] MEDS: MIRTAZAPINE 15 MG TABLET PO SCH (21:14)
[2018-01-14] MEDS: IV NS 0.9% 1,000 ML IV PRN (21:14)
[2018-01-14] MEDS: ZOLPIDEM TARTRATE 5 MG TABLET PO PRN (21:18)
[2018-01-15] MEDS: LACTULOSE 10 G/15 ML UDC (PYXIS) PO SCH ×4 (03:00→15:00)
[2018-01-15] MEDS: ACETAMINOPHEN 325 MG TABLET PO PRN ×2 (03:06→10:49)
--- NOTE | 2018-01-15 06:00 | NUR ---
PATIENT ASLEEP, EASILY AROUSABLE. RESPIRATIONS EVEN. DUE MEDS GIVEN WITH NO ASE NOTE. NO SIGNS OF PAIN NOTED. NEEDS ATTENDED. KEPT CLEAN, DRY, AND COMFORTABLE. SAFETY PRECAUTIONS AND COMFORT MEASURES IN PLACE. WILL GIVE REPORT TO DAY SHIFT FOR CONTINUITY OF CARE.
[2018-01-15] MEDS: PANTOPRAZOLE 40 MG TABLET.DR PO SCH (06:39)
[2018-01-15 07:07] LABS: BASOPHILS % (AUTO) 0.4 % (0.0-2.0); EOSINOPHILS % (AUTO) 0.9 % (0.0-6.0); HEMATOCRIT 31 % (33-45); HEMOGLOBIN 10.4 g/dL (11.5-14.8); LYMPHOCYTES # (AUTO) 4.1 /CMM (0.8-4.8); LYMPHOCYTES % (AUTO) 40.1 % (20.0-44.0); MEAN CORPUSCULAR HGB CONC 34 g/dl (31.0-36.0); MEAN CORPUSCULAR VOLUME 93 fL (82-100); MONOCYTES # (AUTO) 0.6 /CMM (0.1-1.30); MONOCYTES % (AUTO) 5.5 % (2.0-12.0); NEUTROPHILS # (AUTO) 5.4 /CMM (1.8-8.9); NEUTROPHILS % (AUTO) 53.1 % (43.0-81.0); PLATELET COUNT (AUTO) 409 /CMM (150-450); RDW COEFFICIENT OF VARIATION 14.3 (11.5-15.0); WHITE BLOOD COUNT (AUTO) 10.2 K/uL (4.3-11.0)
[2018-01-15 07:29] LABS: CALCIUM, SERUM 8.4 mg/dL (8.5-10.1); CARBON DIOXIDE 19 mmol/L (21-32); CHLORIDE 102 mmol/L (98-107); GLUCOSE 58 mg/dL (74-106); PHOSPHORUS 3.6 mg/dL (2.5-4.9); POTASSIUM 3.5 mmol/L (3.5-5.1); SODIUM SERUM 139 mmol/L (136-145); UREA NITROGEN, BLOOD 15 mg/dL (7-18)
[2018-01-15 08:00] VITALS: BP 144/82
--- NOTE | 2018-01-15 08:00 | NUR ---
RN NOTES RECEIVED PATENT IN THE BED A/O X3 WITH MINIMUM ASSIST. PATIENT HAS NO RESPIRATORY DISTRESS, NO SOB AT THIS TIME, LUNGS ARE CLEAR DURING AUSCULTATION. V/S STABLE, SCHEDULED MEDICATION ADMINISTERED. IV ACCESS ON LEFT HAND INFUSING NS AT 75 ML/HR INTACT. PATENT INCONTINENT. NEEDS ATTENDED AND ANTICIPATED, CALL LIGHT WITHIN TO REACH. SAFETY PRECAUTION MAINTAINED ALL THE TIME. PATIENT REFUSED PAIN AT THIS TIME. PATIENT TURN AND REPOSTION SELF IN THE BED.
[2018-01-15] MEDS: ESCITALOPRAM OXALATE (10 MG) 10 MG TABLET PO SCH (08:56)
[2018-01-15] MEDS: BRIMONIDINE TARTRATE OPHT SOLN 5 ML BOTTLE EACHEYE SCH (09:04)
[2018-01-15] MEDS: ARIPIPRAZOLE 2 MG TABLET PO SCH (09:04)
--- NOTE | 2018-01-15 10:49 | NUR ---
RN NOTES ADMINISTERED TYLENOL 650 MG PO PRN FOR ABDOMEN PAIN 5/10 PER PATIENT REQUEST, CONTINUED MONITORING.
[2018-01-15] MEDS: MAG HYDROX/AL HYDROX/SIMETH 30 ML UDC PO PRN (13:41)
--- NOTE | 2018-01-15 13:41 | NUR ---
RN NOTES ADMINISTERED MAALOX 30 ML PO PRN FOR STOMACHACHE PER PATIENT REQUEST, CONTINUED MONITORING.
--- NOTE | 2018-01-15 16:48 | NUR ---
RN NOTES PATIENT GOING TO D/C SNF, FAMILY NOTIFIED.
--- NOTE | 2018-01-15 18:20 | NUR ---
discharge notes patient discharge at this time going back to the snf. patient stable. no c/o pain, med reconciliation and discharge order reviewed and explained to. report given snf rn. rn verbalized understanding. patient has belonging. patient refused sign paperwork. daughter notified about discharge planing., patient pear picker by ambulance.
== END 2018-01-15 18:20 | DRG 391 ==
LOC: ER 16:16 → MEDSG2 20:09
PROVIDERS: ADMIT Nurse Practitioner Acute Care; ATTEND Nurse Practitioner Acute Care
DX: K59.00 Constipation, unspecified (principal); E43 Unspecified severe protein-calorie malnutrition; D64.9 Anemia, unspecified; E11.9 Type 2 diabetes mellitus without complications; F25.9 Schizoaffective disorder, unspecified; I10 Essential (primary) hypertension; K21.9 Gastro-esophageal reflux disease without esophagitis; R79.89 Other specified abnormal findings of blood chemistry
CPT/HCPCS: 36415; 71045-TC; 80048-TC; 80061-TC; 80076-TC; 81000-TC; 83690-TC; 83735-TC; 84100-TC; 84443-TC; 84484-TC; 85025-TC; 85730-TC; 87081-TC; A4606; C9113; J2270; J7030; J7040; Z7610

== ENCOUNTER 2018-09-06 11:26 | Inpatient (IN) | payer MEDICARE, MEDICAID ==
[~2018-09-06] VITALS: Ht 152.4 cm; Wt 45.4 kg
[~2018-09-06 11:26] MED LIST changes: -SULF1TAB48 PO
[2018-09-06 11:58] LABS: BASOPHILS % (AUTO) 0.6 % (0.0-2.0); EOSINOPHILS % (AUTO) 1.4 % (0.0-6.0); HEMATOCRIT 34 % (33-45); HEMOGLOBIN 11.4 g/dL (11.5-14.8); LYMPHOCYTES # (AUTO) 2.1 /CMM (0.8-4.8); LYMPHOCYTES % (AUTO) 28.1 % (20.0-44.0); MEAN CORPUSCULAR HGB CONC 33 g/dl (31.0-36.0); MEAN CORPUSCULAR VOLUME 94 fL (82-100); MONOCYTES # (AUTO) 0.4 /CMM (0.1-1.30); MONOCYTES % (AUTO) 4.8 % (2.0-12.0); NEUTROPHILS # (AUTO) 4.8 /CMM (1.8-8.9); NEUTROPHILS % (AUTO) 65.1 % (43.0-81.0); PLATELET COUNT (AUTO) 434 /CMM (150-450); RED BLOOD CELL COUNT(AUTO) 3.63 MIL/uL (4.0-5.2); WHITE BLOOD COUNT (AUTO) 7.4 K/uL (4.3-11.0)
[2018-09-06] MEDS ORDERED: IV NS 0.9% 500 ML BAG IV ONE (12:00)
[2018-09-06 12:05] LABS: CALCIUM, SERUM 9.3 mg/dL (8.5-10.1); CARBON DIOXIDE 27 mmol/L (21-32); CHLORIDE 105 mmol/L (98-107); CREATININE 1.1 mg/dL (0.6-1.3); GLUCOSE 116 mg/dL (74-106); POTASSIUM 4.1 mmol/L (3.5-5.1); SODIUM SERUM 140 mmol/L (136-145); UREA NITROGEN, BLOOD 20 mg/dL (7-18)
[2018-09-06] MEDS ORDERED: SENN-168 PO (12:05)
[2018-09-06] MEDS ORDERED: BISA10SU8 RC (12:05)
[2018-09-06] MEDS ORDERED: OMEP20CA10 PO (12:05)
[2018-09-06] MEDS ORDERED: CLAR500T PO (12:05)
[2018-09-06] MEDS ORDERED: MAG30ORA PO (12:05)
[2018-09-06] MEDS ORDERED: BLOO-668 IN (12:05)
[2018-09-06] MEDS ORDERED: MELA3TAB PO (12:05)
[2018-09-06] MEDS ORDERED: SUCR1TAB31 PO (12:05)
[2018-09-06] MEDS ORDERED: LACT10SO PO (12:05)
[2018-09-06] MEDS ORDERED: AMOX500C2 PO (12:05)
[2018-09-06 12:10] LABS: ALANINE AMINOTRANSFERASE 32 U/L (12-78); ALBUMIN 3.9 g/dL (3.4-5.0); ALKALINE PHOSPHATASE 51 U/L (46-116); ASPARTATE AMINOTRANSFERASE 25 U/L (15-37); BILIRUBIN,DIRECT 0.1 mg/dL (0.0-0.2); BILIRUBIN,TOTAL 0.4 mg/dL (0.2-1.0); LIPASE 206 U/L (73-393); TOTAL PROTEIN, SERUM 7.7 g/dL (6.4-8.2)
[2018-09-06] MEDS ORDERED: ACETAMINOPHEN 325 MG TABLET PO PRN ×2 (15:00)
[2018-09-06] MEDS ORDERED: HYDROCODONE/APAP 5/325MG 1 EACH TABLET PO PRN (15:00)
[2018-09-06] MEDS ORDERED: Z GUARD REMEDY 2 OZ OINT TP PRN (15:00)
[2018-09-06] MEDS ORDERED: ONDANSETRON HCL/PF 4 MG/2 ML VIAL IVP PRN (15:00)
[2018-09-06] MEDS ORDERED: NA PHOS,M-B/NA PHOS,DI-BA 1 EA ENEMA RC PRN (15:00)
[2018-09-06] MEDS ORDERED: MAGNESIUM HYDROXIDE 30 ML UDC PO PRN (15:00)
[2018-09-06] MEDS ORDERED: MAG HYDROX/AL HYDROX/SIMETH 30 ML UDC PO PRN ×2 (15:00)
[2018-09-06] MEDS: LACTULOSE 10 G/15 ML UDC (PYXIS) PO SCH ×2 (16:33→22:15)
[2018-09-06 16:35] VITALS: BP 151/77
[2018-09-06] MEDS: IV D5/0.45 NACL 1,000 ML IV PRN (16:44)
[2018-09-06] MEDS: DOCUSATE SODIUM 100 MG CAPSULE PO SCH (16:57)
[2018-09-06] MEDS: SUCRALFATE 1 G TABLET PO SCH (16:57)
[2018-09-06] MEDS: LIPASE/PROTEASE/AMYLASE 1 EACH CAPSULE.DR PO SCH (17:12)
[2018-09-06 18:57] VITALS: BP 138/72
[2018-09-06 20:00] VITALS: BP 136/74
[2018-09-06] MEDS: ZOLPIDEM TARTRATE 5 MG TABLET PO PRN (22:14)
[2018-09-06] MEDS: MIRTAZAPINE 15 MG TABLET PO SCH (22:14)
[2018-09-06] MEDS: SENNOSIDES 8.6 MG TABLET PO SCH (22:14)
[2018-09-06] MEDS: ARIPIPRAZOLE 5 MG TABLET PO SCH (22:14)
[2018-09-06] MEDS: BRIMONIDINE TARTRATE OPHT SOLN 5 ML BOTTLE EACHEYE SCH (22:15)
[2018-09-07 04:00] VITALS: BP 121/74
[2018-09-07] MEDS: LACTULOSE 10 G/15 ML UDC (PYXIS) PO SCH ×4 (04:32→21:07)
[2018-09-07 06:41] LABS: BASOPHILS % (AUTO) 0.7 % (0.0-2.0); EOSINOPHILS % (AUTO) 2.4 % (0.0-6.0); HEMATOCRIT 31 % (33-45); HEMOGLOBIN 10.5 g/dL (11.5-14.8); LYMPHOCYTES # (AUTO) 2.8 /CMM (0.8-4.8); LYMPHOCYTES % (AUTO) 47.2 % (20.0-44.0); MEAN CORPUSCULAR HGB CONC 34 g/dl (31.0-36.0); MEAN CORPUSCULAR VOLUME 93 fL (82-100); MONOCYTES # (AUTO) 0.4 /CMM (0.1-1.30); MONOCYTES % (AUTO) 7.4 % (2.0-12.0); NEUTROPHILS # (AUTO) 2.5 /CMM (1.8-8.9); NEUTROPHILS % (AUTO) 42.3 % (43.0-81.0); PLATELET COUNT (AUTO) 409 /CMM (150-450); RED BLOOD CELL COUNT(AUTO) 3.34 MIL/uL (4.0-5.2); WHITE BLOOD COUNT (AUTO) 5.9 K/uL (4.3-11.0)
[2018-09-07 07:04] LABS: ALANINE AMINOTRANSFERASE 27 U/L (12-78); ALBUMIN 3.3 g/dL (3.4-5.0); ALKALINE PHOSPHATASE 41 U/L (46-116); ASPARTATE AMINOTRANSFERASE 29 U/L (15-37); BILIRUBIN,TOTAL 0.4 mg/dL (0.2-1.0); CALCIUM, SERUM 8.5 mg/dL (8.5-10.1); CARBON DIOXIDE 24 mmol/L (21-32); CHLORIDE 107 mmol/L (98-107); GLUCOSE 122 mg/dL (74-106); LIPASE 174 U/L (73-393); MAGNESIUM 2.1 mg/dL (1.8-2.4); PHOSPHORUS 4.3 mg/dL (2.5-4.9); POTASSIUM 3.8 mmol/L (3.5-5.1); SODIUM SERUM 141 mmol/L (136-145); TOTAL PROTEIN, SERUM 6.4 g/dL (6.4-8.2); UREA NITROGEN, BLOOD 12 mg/dL (7-18)
[2018-09-07] MEDS ORDERED: OMEPRAZOLE 20 MG CAPSULE.DR PO SCH (07:30)
[2018-09-07 08:00] VITALS: BP 139/70
[2018-09-07] MEDS: PANTOPRAZOLE 40 MG TABLET.DR PO SCH (08:01)
[2018-09-07] MEDS: IV D5/0.45 NACL 1,000 ML IV PRN (08:03)
[2018-09-07] MEDS: ARIPIPRAZOLE 2 MG TABLET PO SCH (09:28)
[2018-09-07] MEDS: SUCRALFATE 1 G TABLET PO SCH ×3 (09:28→17:12)
[2018-09-07] MEDS: DOCUSATE SODIUM 100 MG CAPSULE PO SCH ×2 (09:28→17:12)
[2018-09-07] MEDS: LIPASE/PROTEASE/AMYLASE 1 EACH CAPSULE.DR PO SCH ×3 (09:28→17:12)
[2018-09-07] MEDS: BRIMONIDINE TARTRATE OPHT SOLN 5 ML BOTTLE EACHEYE SCH ×2 (09:36→21:09)
[2018-09-07 16:00] VITALS: BP 112/64
[2018-09-07 17:27] LABS: APPEARANCE,URINE SL CLOUDY (CLEAR); BILIRUBIN,URINE NEGATIVE (NEGATIVE); BLOOD, URINE 3+ Ery/uL (NEGATIVE); COLOR,URINE YELLOW (YELLOW); KETONES,URINE NEGATIVE (NEGATIVE); LEUKOCYTE ESTERASE ,URINE 3+ (NEGATIVE); NITRITE, URINE POSITIVE (NEGATIVE); PROTEIN,URINE NEGATIVE (NEGATIVE); UGLUCOSE NEGATIVE (NEGATIVE); UROBILINOGEN,URINE 0.2 EU/dL (0.2)
[2018-09-07 18:51] LABS: BACTERIA,URINE Many /HPF (None Seen); RBC,URINE 0-2 /HPF (0-2); SQUAMOUS EPITHELIAL CELL,UR Few /HPF (None Seen); WBC,URINE TOO NUMEROUS TO COUN /HPF (0-3)
[2018-09-07 20:00] VITALS: BP 130/74
[2018-09-07] MEDS: ZOLPIDEM TARTRATE 5 MG TABLET PO PRN (20:24)
[2018-09-07] MEDS: SENNOSIDES 8.6 MG TABLET PO SCH (21:07)
[2018-09-07] MEDS: MIRTAZAPINE 15 MG TABLET PO SCH (21:08)
[2018-09-07] MEDS: ARIPIPRAZOLE 5 MG TABLET PO SCH (21:08)
[2018-09-08 04:00] VITALS: BP 143/76
[2018-09-08] MEDS: LACTULOSE 10 G/15 ML UDC (PYXIS) PO SCH ×4 (04:12→21:09)
[2018-09-08] MEDS: IV D5/0.45 NACL 1,000 ML IV PRN ×2 (04:16→21:35)
[2018-09-08 08:00] VITALS: BP 157/82
[2018-09-08] MEDS: SUCRALFATE 1 G TABLET PO SCH ×3 (08:38→16:53)
[2018-09-08] MEDS: PANTOPRAZOLE 40 MG TABLET.DR PO SCH (08:38)
[2018-09-08] MEDS: DOCUSATE SODIUM 100 MG CAPSULE PO SCH ×2 (08:38→16:53)
[2018-09-08] MEDS: LIPASE/PROTEASE/AMYLASE 1 EACH CAPSULE.DR PO SCH ×3 (08:38→16:53)
[2018-09-08] MEDS: ARIPIPRAZOLE 2 MG TABLET PO SCH (08:38)
[2018-09-08] MEDS: BRIMONIDINE TARTRATE OPHT SOLN 5 ML BOTTLE EACHEYE SCH ×2 (09:00→21:12)
[2018-09-08] MEDS: CEFTRIAXONE 1 G in IV D5W 50 ML IV SCH (12:08)
[2018-09-08 16:00] VITALS: BP_SYST 103; BP_SYST 129; BP_DIAS 51; BP_DIAS 74
[2018-09-08] MEDS ORDERED: ZOLPIDEM TARTRATE 5 MG TABLET PO PRN (19:00)
[2018-09-08] MEDS: ZOLPIDEM TARTRATE 5 MG TABLET PO PRN (20:25)
[2018-09-08] MEDS: ARIPIPRAZOLE 5 MG TABLET PO SCH (21:09)
[2018-09-08] MEDS: MIRTAZAPINE 15 MG TABLET PO SCH (21:09)
[2018-09-08] MEDS: SENNOSIDES 8.6 MG TABLET PO SCH (21:09)
[2018-09-09 04:00] VITALS: BP 149/77
[2018-09-09] MEDS: LACTULOSE 10 G/15 ML UDC (PYXIS) PO SCH ×2 (05:02→08:34)
[2018-09-09 08:00] VITALS: BP 158/75
[2018-09-09] MEDS: DOCUSATE SODIUM 100 MG CAPSULE PO SCH (08:30)
[2018-09-09] MEDS: BRIMONIDINE TARTRATE OPHT SOLN 5 ML BOTTLE EACHEYE SCH (08:30)
[2018-09-09] MEDS: PANTOPRAZOLE 40 MG TABLET.DR PO SCH (08:30)
[2018-09-09] MEDS: ARIPIPRAZOLE 2 MG TABLET PO SCH (08:30)
[2018-09-09] MEDS: LIPASE/PROTEASE/AMYLASE 1 EACH CAPSULE.DR PO SCH ×2 (08:30→13:06)
[2018-09-09] MEDS: SUCRALFATE 1 G TABLET PO SCH ×2 (08:30→13:06)
[2018-09-09] MEDS: CEFTRIAXONE 1 G in IV D5W 50 ML IV SCH (11:19)
== END 2018-09-09 15:28 | DRG 438 ==
LOC: ER 11:31 → MEDSG1 13:51
PROVIDERS: ADMIT Internal Medicine; ATTEND Internal Medicine
DX: K85.90 Acute pancreatitis without necrosis or infection, unspecified (principal); N17.0 Acute kidney failure with tubular necrosis; G93.41 Metabolic encephalopathy; E44.0 Moderate protein-calorie malnutrition; N39.0 Urinary tract infection, site not specified; K21.9 Gastro-esophageal reflux disease without esophagitis; E11.9 Type 2 diabetes mellitus without complications; D63.8 Anemia in other chronic diseases classified elsewhere; K29.70 Gastritis, unspecified, without bleeding; H40.9 Unspecified glaucoma; Z87.440 Personal history of urinary (tract) infections; F03.90 Unspecified dementia, unspecified severity, without behavioral disturbance, psychotic disturbance, mood disturbance, and anxiety; I51.7 Cardiomegaly; B96.89 Other specified bacterial agents as the cause of diseases classified elsewhere; R62.7 Adult failure to thrive
CPT/HCPCS: 36415; 70450-TC; 71045-TC; 80048-TC; 80076-TC; 81000-TC; 83690-TC; 83735-TC; 84100-TC; 84443-TC; 85025-TC; 85730-TC; 87081-TC; 87086-TC; 87186-TC; G0378; J0696; J3490; J7040; J7042; J7060

== ENCOUNTER 2021-07-13 22:21 | Inpatient (IN) | payer MEDICARE, OTHER ==
[~2021-07-13] VITALS: Ht 144.8 cm; Wt 37.2 kg
[~2021-07-13 22:21] MED LIST changes: +AMOX500C2 PO; +BISA10SU11 RC; +BLOO-668 IN; +CLAR-45 PO; -ESCI10TA PO; +LACT10SO3 PO; -LOSA100T3 PO; +MAG30ORA PO; +MELA3TAB41 PO; +MIRT-121 PO; -MIRT15TA PO; +OMEP20CA15 PO; -PANT40TA4 PO; +PANT40TA49 PO; +SENN-261 PO; +SUCR1TAB31 PO
--- NOTE | 2021-07-13 22:30 | NUR ---
BIBPA FROM SNF FOR C/O L SIDED FACIAL SWELLING, PT IS NOT VERBAL. VSS
--- NOTE | 2021-07-13 23:21 | NUR ---
COVID SWABS SENT TO LAB.
[2021-07-13] MEDS ORDERED: VANCOMYCIN 1 GM in IV D5W 250 ML IV ONE (23:30)
[2021-07-13] MEDS ORDERED: VANCOMYCIN 1 GM VIAL ONE (23:40)
--- NOTE | 2021-07-13 23:48 | NUR ---
vancomycin end time 0048.
[2021-07-14 00:01] LABS: BASOPHILS # (AUTO) 0.1 K/uL (0.0-0.2); BASOPHILS % (AUTO) 0.5 % (0.0-2.0); HEMATOCRIT 35 % (33-45); LYMPHOCYTES # (AUTO) 3.3 K/uL (0.8-4.8); LYMPHOCYTES % (AUTO) 32.1 % (20.0-44.0); MEAN CORPUSCULAR HGB CONC 34 g/dl (31.0-36.0); MEAN CORPUSCULAR VOLUME 95 fL (82-100); MONOCYTES # (AUTO) 0.6 K/uL (0.1-1.30); NEUTROPHILS # (AUTO) 6.1 K/uL (1.8-8.9); NEUTROPHILS % (AUTO) 60.4 % (43.0-81.0); PLATELET COUNT (AUTO) 437 K/uL (150-450); RED BLOOD CELL COUNT(AUTO) 3.72 MIL/uL (4.0-5.2); WHITE BLOOD COUNT (AUTO) 10.2 K/uL (4.3-11.0)
[2021-07-14 00:17] LABS: CALCIUM, SERUM 8.6 mg/dL (8.5-10.1); CARBON DIOXIDE 24 mmol/L (21-32); CHLORIDE 93 mmol/L (98-107); CREATININE 1.1 mg/dL (0.6-1.3); GLUCOSE 117 mg/dL (74-106); POTASSIUM 4.3 mmol/L (3.5-5.1); SODIUM SERUM 127 mmol/L (136-145); UREA NITROGEN, BLOOD 21 mg/dL (7-18)
[2021-07-14] MEDS ORDERED: Z GUARD REMEDY 2 OZ OINT TP PRN (00:30)
[2021-07-14] MEDS ORDERED: HYDROCODONE/APAP 5/325MG TABLET PO PRN (00:30)
[2021-07-14] MEDS ORDERED: MAG HYDROX/AL HYDROX/SIMETH 30 ML UDC PO PRN (00:30)
[2021-07-14] MEDS ORDERED: ONDANSETRON HCL/PF 4 MG/2 ML VIAL IVP PRN (00:30)
[2021-07-14] MEDS ORDERED: MAGNESIUM HYDROXIDE 30 ML UDC PO PRN (00:30)
[2021-07-14] MEDS ORDERED: ZOLPIDEM TARTRATE 5 MG TABLET PO PRN (00:30)
[2021-07-14] MEDS ORDERED: ACETAMINOPHEN 325 MG TABLET PO PRN (00:30)
[2021-07-14 00:37] LABS: ALANINE AMINOTRANSFERASE 23 U/L (12-78); ALBUMIN 3.9 g/dL (3.4-5.0); ALKALINE PHOSPHATASE 79 U/L (46-116); ASPARTATE AMINOTRANSFERASE 24 U/L (15-37); BILIRUBIN,DIRECT 0.1 mg/dL (0.0-0.2); BILIRUBIN,TOTAL 0.1 mg/dL (0.2-1.0); TOTAL PROTEIN, SERUM 7.7 g/dL (6.4-8.2)
--- NOTE | 2021-07-14 07:28 | NUR ---
assessed pt on bed asleep on bed easily arousable, not in respiratory distress, v/s stable, kept rested and comfortable. will continue to monitor.
[2021-07-14] MEDS ORDERED: MULT-447 PO (07:30)
[2021-07-14] MEDS ORDERED: INSU100V11 SQ (07:30)
[2021-07-14] MEDS ORDERED: MAGN400O6 PO (07:30)
[2021-07-14] MEDS ORDERED: LORA-259 PO (07:30)
[2021-07-14] MEDS ORDERED: ASCO-352 PO (07:30)
[2021-07-14] MEDS ORDERED: PSYL3.4P6 PO (07:30)
[2021-07-14] MEDS ORDERED: SERT50TA PO (07:30)
[2021-07-14] MEDS ORDERED: MEMA10TA PO (07:30)
[2021-07-14] MEDS ORDERED: DOCU250C14 PO (07:30)
[2021-07-14] MEDS ORDERED: VANCOMYCIN HCL 0.75 GM in IV D5W 250 ML IV SCH ×2 (08:00→12:00)
[2021-07-14] MEDS: PANTOPRAZOLE 40 MG TABLET.DR PO SCH (08:01)
[2021-07-14] MEDS ORDERED: PANTOPRAZOLE 40 MG TABLET.DR PO ONE (08:01)
--- NOTE | 2021-07-14 09:12 | NUR ---
THE PATIENT IS TRANSFERED TO ASSIGNED ROOM IN STABLE CONDITION AND PER POLICY.
[2021-07-14 12:00] VITALS: BP 143/77
--- NOTE | 2021-07-14 14:37 | NUR ---
NURSE NOTE UNABLE TO START VANCOMYCIN. IV NOT WORKING. MID LINE ORDER HAVE BEEN PLACE.
[2021-07-14] MEDS: VANCOMYCIN HCL 0.75 GM in IV D5W 250 ML IV SCH (18:03)
--- NOTE | 2021-07-14 19:30 | NUR ---
RN NOTES RECEIVED PT FOR CORBY. PATIENT IN NO S/SX OF ACUTE DISTRESS AT THIS TIME. WILL ENSURE SAFETY MEASURES WITHIN THE SHIFT. PATIENT BED ALARM IS ON. HEAD OF BED ELEVATED. BED IS LOCKED, IN LOWEST POSITION AND SIDE RAILS UP. CALL LIGHT WITHIN REACH OF THE PATIENT. APPLICABLE ISOLATION PRECAUTIONS IN PLACE. WILL CONTINUE TO MONITOR AND REASSESS FOR ANY CHANGES AND WILL CARRY OUT ANY ONGOING AND ACTIVE MD ORDER.
--- NOTE | 2021-07-14 19:52 | NUR ---
NURSE CLOSING NOTE. PATIENT WAS ADMITTED FROM ED. DX LEFT FACIAL SWELLING POSSIBLE CELLULITIS. VANCOMYCIN IS BEING ADMINISTER PER ORDER. PICC LINE ORDER IN PLACE. NEW IV WAS PLACE ON LEFT FOREARM. SAFETY MEASURE IN PLACE. BED ON LOWEST POSITION WITH HOB ELEVATED AND 3 SIDE RAIL UP. CALL LIGHT WITHIN REACH. REPORT WAS GIVEN TO ON COMING NURSE.
[2021-07-14 20:00] VITALS: BP 137/81
[2021-07-15 04:00] VITALS: BP 143/71
--- NOTE | 2021-07-15 06:15 | NUR ---
RN NOTES CALLED LAB, SPOKE WITH EHSAN (TAI), VERIFIED IF VANCO TROUGH IS BEING PROCESSED AT THIS TIME, ORDER HX STATUS SHOWS VANCO TROUGH SHOULD BE DONE BY 1700, SHE SAID IT CURRENLY BEING RUN RIGHT NOW. CALLED [facility], SPOKE WITH LEONID, TRIED TO VERIFY IF VANCO DUE AT 0600AM CAN BE GIVEN SCHEDULED VANCO TROUGH WHICH IS SCHEDULE ON 1700 IS BEING PROCESSED LAB AT THIS TIME. SHE SAID TO CALL [facility] TO CONFIRM. CALLED LAB AGAIN TO VERIFY IF VANCO TROUGH DUE AT 1700 IS BEING PROCESSED STATUS IN ORDER HX SHOW "IN PROCESS" STAFF SAID, NO THEY HAVENT DRAWN THE BLOOD AND WILL DO IT BY 1700. RN ACKNOWLEDGED .
[2021-07-15] MEDS: VANCOMYCIN HCL 0.75 GM in IV D5W 250 ML IV SCH ×2 (06:42→17:53)
--- NOTE | 2021-07-15 06:53 | NUR ---
RN CLOSING NOTE: PATIENT REMAINS IN ROOM IN NO SIGNS OF RESPIRATORY DISTRESS, PATIENT STILL ON ROOM AIR;TOLERATING WELL SATURATING @ >95% SP02. SAFETY MEASURES IMPLEMENTED, BED IN LOWEST POSITION, LOCKED, SIDE RAILS UP, CALL LIGHT WITHIN REACH. ALL NEEDS AND ORDERS ADDRESSED DURING THE SHIFT. IV ACCESS MAINTAINED INTACT, SECURED AND FLUSHING WELL. ALL DUE MEDS GIVEN ORDERED & SCHEDULED ; PATIENT TOLERATED WELL. PATIENT KEPT CLEAN AND COMFORTABLE WITHIN THE SHIFT. PATIENT ENDORSED TO INCOMING SHIFT RN WITH STABLE VITAL SIGN AND FOR CONTINUITY OF CARE.
[2021-07-15 07:25] LABS: BASOPHILS % (AUTO) 0.6 % (0.0-2.0); EOSINOPHILS % (AUTO) 1.2 % (0.0-6.0); HEMATOCRIT 34 % (33-45); HEMOGLOBIN 11.3 g/dL (11.5-14.8); LYMPHOCYTES # (AUTO) 2.3 K/uL (0.8-4.8); LYMPHOCYTES % (AUTO) 30.6 % (20.0-44.0); MEAN CORPUSCULAR HGB CONC 34 g/dl (31.0-36.0); MEAN CORPUSCULAR VOLUME 96 fL (82-100); MONOCYTES # (AUTO) 0.4 K/uL (0.1-1.30); MONOCYTES % (AUTO) 5.4 % (2.0-12.0); NEUTROPHILS # (AUTO) 4.6 K/uL (1.8-8.9); NEUTROPHILS % (AUTO) 62.2 % (43.0-81.0); PLATELET COUNT (AUTO) 440 K/uL (150-450); RED BLOOD CELL COUNT(AUTO) 3.54 MIL/uL (4.0-5.2); WHITE BLOOD COUNT (AUTO) 7.4 K/uL (4.3-11.0)
[2021-07-15 07:36] LABS: CALCIUM, SERUM 8.7 mg/dL (8.5-10.1); MAGNESIUM 2.5 mg/dL (1.8-2.4); PHOSPHORUS 3.2 mg/dL (2.5-4.9); POTASSIUM 4.3 mmol/L (3.5-5.1)
--- NOTE | 2021-07-15 07:38 | NUR ---
RN OPENING NOTE RECEIVED PATIENT ASLEEP IN BED, AWAKE, A/O X2, CONFUSED. NO S/SX OF DISTRESS NOTED. PATIENT ON ROOM AIR, TOLERATING WELL. BREATHING IS EVEN AND UNLABORED; NO SOB NOTED. NO COMPLAINTS OF PAIN. IV ACCESS LFA#2 AND VALARIE MIDLINE #18 PATENT AND INTACT. SAFETY PRECAUTIONS IN PLACE; BED IN LOW POSITION AND LOCKED, SIDE RAILS UP X2, CALL LIGHT WITHIN REACH. WILL CONTINUE TO MONITOR PATIENT.
[2021-07-15] MEDS: PANTOPRAZOLE 40 MG TABLET.DR PO SCH (08:12)
[2021-07-15 09:03] LABS: THYROID STIMULATING HORMONE 2.585 uIU/mL (0.358-3.74)
[2021-07-15] MEDS ORDERED: IV NS 0.9% 1,000 ML IV PRN (09:30)
[2021-07-15] MEDS: ENSURE ENLIVE 237 ML LIQUID (VANILLA) PO SCH (09:52)
[2021-07-15 12:00] VITALS: BP 143/77
--- NOTE | 2021-07-15 18:56 | NUR ---
RN CLOSING NOTE PATIENT ASLEEP IN BED, EASY TO AROUSE. A/O X2, CONFUSED. NO S/SX OF DISTRESS NOTED. PATIENT ON ROOM AIR, TOLERATING WELL. BREATHING IS EVEN AND UNLABORED; NO SOB NOTED. NO COMPLAINTS OF PAIN. IV ACCESS LFA#2 AND VALARIE MIDLINE #18 PATENT AND INTACT. SAFETY PRECAUTIONS IN PLACE; BED IN LOW POSITION AND LOCKED, SIDE RAILS UP X2, CALL LIGHT WITHIN REACH. WILL ENDORSE CONTINUITY OF CARE TO ONCOMING SHIFT.
[2021-07-15 20:00] VITALS: BP 124/69
[2021-07-16 04:00] VITALS: BP 139/78
[2021-07-16] MEDS: VANCOMYCIN HCL 0.75 GM in IV D5W 250 ML IV SCH (05:19)
[2021-07-16 07:28] LABS: CALCIUM, SERUM 7.8 mg/dL (8.5-10.1); POTASSIUM 4.1 mmol/L (3.5-5.1)
[2021-07-16] MEDS: PANTOPRAZOLE 40 MG TABLET.DR PO SCH (07:30)
[2021-07-16] MEDS: ENSURE ENLIVE 237 ML LIQUID (VANILLA) PO SCH (08:00)
[2021-07-16] MEDS ORDERED: MUPIROCIN OINT 2% 22 GM TUBE TP SCH (09:00)
[2021-07-16 12:00] VITALS: BP 140/68
--- NOTE | 2021-07-16 16:53 | NUR ---
RECEIVED PATIENT ASLEEP, EASY TO AROUSE,A & O X 1, CONFUSION NOTED, REPEATED WORDS SAME SENTENCES NO SOB NOTED AND NO S/S OF DISTRESS NOTED. PATIENT ON ROOM AIR, TOLERATING WELL. BREATHING IS EVEN UNLABORED; NO COMPLAINTS OF PAIN WHEN ASKED AND NO S/S OF PAIN, ABLE TO MAKE SIMPLE NEEDS KNOWN AND COMMUNICATE SIMPLE WORDS TO MEET NEEDS, I WANT WATER, I WANT BED RHODES ETC, MD ORDERS TO TRANSFER OUT 1630 ARRIVED AND TRANSFERRED OUT 1645 PM SAFE TRANSFER FROM BED TO [facility] TO [facility]ER [facility], . THE IV'S ALL D/C RIGHT AND LEFT SIDE NO SIGNIFICANT BLEEDING APPLIED PRESSURE AND BANDAGE, PT CLEANSED AND BRIEF CHANGE AND DRY, PROVIDED HYDRATION WRIST RESTRAINTS RELEASED SAFE TRANSFER FROM BED TO [facility] TO AMBULANCE NOTED, BRUCE DREW RN ACCESS CONTROL OFFICER NOTIFIED AWARE AND FAMILIAR WITH PATIENT AND TRANSFER BACK, ALL INFO , MEDICATIONS AND EDUCATION INTRUCTIONS PROVIDED IN PACKET, MD ORDERS TO RESUME PREVIOUS MD ORDERS BEFORE THE TRANSFER INTO HOSPITAL AT THIS TIME.
== END 2021-07-16 16:32 | DRG 602 ==
LOC: ER 22:28 → TRANSITION 07-14 02:29 → MEDSG1 07-14 05:23 → TRANSITION 07-14 06:00 → MEDSG1 07-14 08:43
PROVIDERS: ADMIT Internal Medicine; ATTEND Internal Medicine
PROC: 05HB33Z Insertion of Infusion Device into Right Basilic Vein, Percutaneous Approach (ICD-10-PCS; principal; 2021-07-14)
DX: L03.211 Cellulitis of face (principal); G93.41 Metabolic encephalopathy; E87.1 Hypo-osmolality and hyponatremia; I50.32 Chronic diastolic (congestive) heart failure; K86.1 Other chronic pancreatitis; F03.90 Unspecified dementia, unspecified severity, without behavioral disturbance, psychotic disturbance, mood disturbance, and anxiety; Z20.822 Contact with and (suspected) exposure to COVID-19; F25.9 Schizoaffective disorder, unspecified; I11.0 Hypertensive heart disease with heart failure; H40.9 Unspecified glaucoma; E11.40 Type 2 diabetes mellitus with diabetic neuropathy, unspecified; K21.9 Gastro-esophageal reflux disease without esophagitis; F32.9 Major depressive disorder, single episode, unspecified; G47.00 Insomnia, unspecified; Z79.899 Other long term (current) drug therapy
CPT/HCPCS: 36410; 36415; 71045-TC; 80048-TC; 80076-TC; 80202-TC; 83735-TC; 83880; 84100-TC; 84443-TC; 84484-TC; 85025-TC; 85730-TC; 87040-TC; 87081-TC; 92526; 92611-TC; C9803; G0378; J2405; J3370; J7030; J7050; J7060; U0003

== ENCOUNTER 2022-04-18 15:16 | Inpatient (IN) | payer MEDICARE, OTHER ==
[~2022-04-18] VITALS: Ht 139.7 cm; Wt 44.5 kg
[~2022-04-18 15:16] MED LIST changes: -ACET-2605 PO; -AMOX500C2 PO; -ARIP2TAB3 PO; +ASCO-352 PO; -BRIM5DRO EACHEYE; -CLAR-45 PO; -DOCU-141 PO; +DOCU250C14 PO; +INSU100V11 SQ; -LACT10SO3 PO; -LIPA1CAP27 PO; +LORA-259 PO; +MAGN400O6 PO; +MEMA10TA PO; +MULT-447 PO; -OMEP20CA15 PO; -PANT40TA49 PO; +PSYL3.4P6 PO; +SERT50TA PO; -SUCR1TAB31 PO
--- NOTE | 2022-04-18 15:21 | NUR ---
KAROLYN 84 FROM [facility] C/O CHETS PAIN, WAS GIVEN 1 DOSE OF NITRO PRIOR TO TRANSPORTATION AND PAIN FREE. PT ATTACHED TO MONITOR. AWAITING MD SIMEON.
--- NOTE | 2022-04-18 15:32 | NUR ---
DR YIN AT BS FOR EVAL.
[2022-04-18] MEDS ORDERED: MULT-1275 PO (15:45)
[2022-04-18] MEDS ORDERED: FERR325T23 PO (15:45)
[2022-04-18] MEDS ORDERED: POLY15DR40 EACHEYE (15:45)
[2022-04-18] MEDS ORDERED: FAMO20TA8 PO (15:45)
[2022-04-18] MEDS ORDERED: LOPE2TAB23 PO (15:45)
[2022-04-18 16:00] LABS: BASOPHILS % (AUTO) 0.4 % (0.0-2.0); EOSINOPHILS % (AUTO) 1.8 % (0.0-6.0); HEMATOCRIT 37 % (33-45); HEMOGLOBIN 12.2 g/dL (11.5-14.8); LYMPHOCYTES # (AUTO) 2.6 K/uL (0.8-4.8); MEAN CORPUSCULAR HGB CONC 33 g/dl (31.0-36.0); MEAN CORPUSCULAR VOLUME 93 fL (82-100); MONOCYTES # (AUTO) 0.5 K/uL (0.1-1.30); MONOCYTES % (AUTO) 6.9 % (2.0-12.0); NEUTROPHILS # (AUTO) 4.3 K/uL (1.8-8.9); NEUTROPHILS % (AUTO) 56.9 % (43.0-81.0); PLATELET COUNT (AUTO) 468 K/uL (150-450); RED BLOOD CELL COUNT(AUTO) 3.99 MIL/uL (4.0-5.2); WHITE BLOOD COUNT (AUTO) 7.5 K/uL (4.3-11.0)
[2022-04-18 16:10] LABS: CALCIUM, SERUM 8.7 mg/dL (8.5-10.1); CARBON DIOXIDE 29 mmol/L (21-32); CHLORIDE 103 mmol/L (98-107); CREATININE 1.3 mg/dL (0.6-1.3); GLUCOSE 160 mg/dL (74-106); POTASSIUM 4.3 mmol/L (3.5-5.1); SODIUM SERUM 139 mmol/L (136-145); UREA NITROGEN, BLOOD 22 mg/dL (7-18)
--- NOTE | 2022-04-18 17:53 | NUR ---
COVID TEST COLLECTED AND SENT
[2022-04-18] MEDS ORDERED: BISACODYL SUPP (10 MG) 10 MG/SUPP.RECT SUPP.RECT RC PRN (19:00)
[2022-04-18] MEDS ORDERED: ONDANSETRON HCL/PF 4 MG/2 ML VIAL IVP PRN (19:00)
[2022-04-18] MEDS ORDERED: NA PHOS,M-B/NA PHOS,DI-BA 1 EA ENEMA RC PRN (19:00)
[2022-04-18] MEDS ORDERED: DEXTROSE 50%-WATER 50 ML DISP.SYRIN IV PRN (19:00)
[2022-04-18] MEDS ORDERED: Z GUARD REMEDY 4 OZ OINT TP PRN (19:00)
[2022-04-18] MEDS ORDERED: ZOLPIDEM TARTRATE 5 MG TABLET PO PRN (19:00)
[2022-04-18] MEDS ORDERED: NITROGLYCERIN 0.4 MG/TAB BOTTLE SL ONE (19:00)
--- NOTE | 2022-04-18 19:10 | NUR ---
ULTRASOUND AT BEDSIDE
--- NOTE | 2022-04-18 19:34 | NUR ---
BED 307-1
[2022-04-18 20:00] VITALS: BP 147/78
--- NOTE | 2022-04-18 20:09 | NUR ---
REPORT GIVEN TO [facility] 307-1 FOR [facility]
--- NOTE | 2022-04-18 20:11 | NUR ---
RN NOTE RECEIVED REPORT FROM [employer] TECHJESU RESENDIZ.
[2022-04-18 20:30] VITALS: BP 147/78
--- NOTE | 2022-04-18 20:43 | NUR ---
PT TRANSFERRED TO 3W 307 VIA ACLS PROTOCOL. VSS. ALL BELONGINGS WITH PT
--- NOTE | 2022-04-18 21:03 | NUR ---
RN INITIAL NOTE PT ARRIVED TO UNIT VIA GURNEY. PT IS A&O X2, NOTED TO BE IRRITABLE, BUT OTHERWISE COOPERATIVE. PT ADMITTED FOR CHEST PAIN, POSSIBLE ACS WITH MEDICAL HISTORY OF ENCEPHALOPATHY, HTN, HLD, DM, DEPRESSION, AND SCHIZOPHRENIA. PT NOTED TO BE ON 2L NC WITH CURRENT O2SAT OF 98%, NO S/S OF RESP DISTRESS, NO SOB OR COUGH, NON-LABORED AND EQUAL BREATHING; APPEARS COMFORTABLE OVERALL. PT ATTACHED TO EXTERNAL MONITOR, SR WITH HR OF 71; PT CURRENTLY HAS NO COMPLAINTS OF CHEST PAIN AND IS RESTING COMFORTABLY IN BED. IV ACCESS ON LEFT HAND 22G, INTACT AND PATENT, FLUSHES EASILY WITH NO RESISTANCE; CURRENTLY HAS NO FLUIDS/MEDS RUNNING. SKIN ASSESSED AND IS NOTED TO BE INTACT. BED IN LOWEST POSITION, CALL LIGHT WITHIN REACH, SIDE RAILS UP X3. WILL INITIATE PLAN OF CARE.
[2022-04-18] MEDS: MEMANTINE HCL 5 MG TABLET PO SCH (21:11)
[2022-04-18] MEDS: MIRTAZAPINE 15 MG TABLET PO SCH (21:11)
[2022-04-18] MEDS: ENOXAPARIN SODIUM 30 MG/0.3 ML DISP.SYRIN SQ SCH (21:14)
[2022-04-18] MEDS: BLOOD SUGAR DIAGNOSTIC 1 EACH STRIP IN SCH (21:24)
[2022-04-18] MEDS: INSULIN REGULAR, HUMAN 100 UNIT/ML 3 ML VIAL SQ PRN (21:28)
[2022-04-19] VITALS: BP 146/79
[2022-04-19 04:00] VITALS: BP 132/69
[2022-04-19 06:08] LABS: BASOPHILS % (AUTO) 0.5 % (0.0-2.0); EOSINOPHILS % (AUTO) 1.5 % (0.0-6.0); HEMATOCRIT 38 % (33-45); HEMOGLOBIN 12.6 g/dL (11.5-14.8); LYMPHOCYTES # (AUTO) 2.7 K/uL (0.8-4.8); LYMPHOCYTES % (AUTO) 28.7 % (20.0-44.0); MEAN CORPUSCULAR HGB CONC 34 g/dl (31.0-36.0); MEAN CORPUSCULAR VOLUME 92 fL (82-100); MONOCYTES # (AUTO) 0.5 K/uL (0.1-1.30); MONOCYTES % (AUTO) 5.1 % (2.0-12.0); NEUTROPHILS # (AUTO) 6.1 K/uL (1.8-8.9); NEUTROPHILS % (AUTO) 64.2 % (43.0-81.0); PLATELET COUNT (AUTO) 447 K/uL (150-450); RED BLOOD CELL COUNT(AUTO) 4.07 MIL/uL (4.0-5.2); WHITE BLOOD COUNT (AUTO) 9.5 K/uL (4.3-11.0)
[2022-04-19] MEDS: BLOOD SUGAR DIAGNOSTIC 1 EACH STRIP IN SCH ×4 (06:38→20:55)
[2022-04-19 06:53] LABS: ALANINE AMINOTRANSFERASE 24 U/L (12-78); ALBUMIN 3.5 g/dL (3.4-5.0); ALKALINE PHOSPHATASE 79 U/L (46-116); ASPARTATE AMINOTRANSFERASE 22 U/L (15-37); BILIRUBIN,TOTAL 0.3 mg/dL (0.2-1.0); CALCIUM, SERUM 8.7 mg/dL (8.5-10.1); CARBON DIOXIDE 27 mmol/L (21-32); CHLORIDE 103 mmol/L (98-107); CREATININE 1.3 mg/dL (0.6-1.3); GLUCOSE 139 mg/dL (74-106); MAGNESIUM 3.1 mg/dL (1.8-2.4); PHOSPHORUS 3.7 mg/dL (2.5-4.9); POTASSIUM 4.6 mmol/L (3.5-5.1); SODIUM SERUM 137 mmol/L (136-145); TOTAL PROTEIN, SERUM 7.7 g/dL (6.4-8.2); UREA NITROGEN, BLOOD 22 mg/dL (7-18)
--- NOTE | 2022-04-19 07:00 | NUR ---
CONSULTANT RN OPENING NOTES RECEIVED PATIENT SLEEPING IN BED, A/Ox2, EASILY AROUSED. ON 2L VIA NC, NO S/S OF RESPIRATORY DISTRESS. PATIENT IS ON TELE MONITORING SHOWING SR 69 HR, NO S/S OF CARDIAC DISTRESS OR DISCOMFORT NOTED. PATIENT HAS IV ACCESS L HAND #20G SL, INTACT AND PATENT. PATIENT IS INCONTINENT AND USES DIAPER, ON BED REST. SKIN IS INTACT. SAFETY MEASURES IN PLACE: BED LOCKED AND IN LOWEST POSITION, SIDE RAILS UP x2, CALL LIGHT WITHIN REACH, AND HOB ELEVATED. WILL CONTINUE TO MONITOR.
[2022-04-19 07:10] LABS: CHOLESTEROL 264 mg/dL (<200); HDL CHOLESTEROL 55 mg/dL (40-60); LDL 161 mg/dL (0-99); THYROID STIMULATING HORMONE 1.914 uIU/mL (0.358-3.74); TRIGLYCERIDES 365 mg/dL (30-150)
--- NOTE | 2022-04-19 07:41 | NUR ---
CORPORATE HEALTH CONSULTANT CLOSING NOTE PT REMAINS IN BED, ASLEEP BUT EASILY AROUSABLE, A&O X2, CONFUSED, IRRITABLE. ON 2L NC WITH O2SAT IN THE HIGH 90S; NO S/S OF RESP DISTRESS, NO SOB OR COUGH, NON-LABORED AND EQUAL BREATHING. ATTACHED TO EXTERNAL MONITOR, SR WITH HR OF 68. IV ACCESS ON LEFT HAND 20G, INTACT AND PATENT, FLUSHES EASILY WITH NO RESISTANCE; NO FLUIDS/MEDS RUNNING THROUGH IT. ALL DUE MEDS ADMINISTERED DURING THE SHIFT. BED IN LOWEST POSITION, CALL LIGHT WITHIN REACH, SIDE RAILS UP X3. WILL ENDORSE TO DAYSHIFT NURSE TO CONTINUE CARE.
[2022-04-19] MEDS: ACETAMINOPHEN 325 MG TABLET PO PRN ×2 (08:15→12:16)
--- NOTE | 2022-04-19 08:37 | NUR ---
RN NOTES PATIENT COMPLAINED OF HEADACHE PRN TYLENOL GIVEN, PATIENT REFUSED MORNING VITALS, WILL ATTEMPTED AGAIN AT A LATER TIME.
[2022-04-19] MEDS: ASPIRIN 81 MG TAB.CHEW PO SCH (09:00)
[2022-04-19] MEDS: DOCUSATE SODIUM 250 MG CAPSULE PO SCH (09:00)
[2022-04-19] MEDS ORDERED: SENNOSIDES 8.6 MG TABLET PO PRN (09:00)
[2022-04-19] MEDS: FERROUS SULFATE (325 MG) 325 MG/TAB TABLET PO SCH (09:00)
[2022-04-19] MEDS: ASCORBIC ACID 500 MG TABLET PO SCH (09:00)
[2022-04-19] MEDS: PANTOPRAZOLE 40 MG VIAL IV SCH (09:00)
[2022-04-19] MEDS: INSULIN REGULAR, HUMAN 100 UNIT/ML 3 ML VIAL SQ PRN (12:10)
--- NOTE | 2022-04-19 15:42 | NUR ---
RN NOTES PATIENT REFUSING TO WEAR TELE MONITORING PADS, RISKS AND BENEFITS EXPLAINED WILL CONTINUE TO RECONNECT AND MONITOR FOR S/S OR C/O OF CARDIAC DISTRESS.
--- NOTE | 2022-04-19 16:37 | NUR ---
RN NOTES PATIENT REFUSED BLOOD SUGAR CHECK. ATTEMPTED 3 TIMES, RISKS AND BENEFITS EXPLAINED TO PATIENT. WILL CONTINUE TO MONITOR. PATIENT ALSO REFUSES TO HAVE VITAL SIGNS TAKEN. RISKS AND BENEFITS EXPLAINED WILL CONTINUE TO MONITOR.
--- NOTE | 2022-04-19 18:36 | NUR ---
GAS COMPRESSOR TURBINE OPERATOR CLOSING NOTES PATIENT SLEEPING IN BED, A/Ox2, EASILY AROUSED. STABLE ON 2L VIA NC, NO S/S OF RESPIRATORY DISTRESS. PATIENT IS ON TELE MONITORING BUT IS NON-COMPLIANT WITH THE PADS, NO S/S OF CARDIAC DISTRESS OR DISCOMFORT NOTED. PATIENT HAS IV ACCESS L HAND #20G SL, INTACT AND PATENT. PATIENT IS INCONTINENT AND USES DIAPER, ON BED REST. SKIN IS INTACT. ALL PRESCRIBED MEDICATION ADMINISTERED. SAFETY MEASURES MAINTAINED: BED LOCKED AND IN LOWEST POSITION, SIDE RAILS UP x2, CALL LIGHT WITHIN REACH, AND HOB ELEVATED. WILL ENDORSE TO NEXT SHIFT ANY CORBY.
[2022-04-19 20:00] VITALS: BP 134/69
--- NOTE | 2022-04-19 20:21 | NUR ---
RECEIVED IN BED ALERT TO NURSE AT THE BEDSIDE YELLS OUT HELP ME MONITOR PLACED NSR SHE PULLS THE LEADS OFF WHEN PLACED MD AWARE STATED KEEP TRYING TO PUT THEM ON BED ALARM ON ATTEMPTED TO FEED HER SOME DINNER SHE TOOK THE NOODLE OUT OF HER MOUTH AND THROUGH IT ACROSS THE ROOM NO INDICATION OF CHEST DISCOMFORT
[2022-04-19] MEDS: ENOXAPARIN SODIUM 30 MG/0.3 ML DISP.SYRIN SQ SCH (20:43)
[2022-04-19] MEDS: MIRTAZAPINE 15 MG TABLET PO SCH (21:51)
[2022-04-19] MEDS: ATORVASTATIN 40 MG TABLET PO SCH (21:51)
[2022-04-19] MEDS: MEMANTINE HCL 5 MG TABLET PO SCH (21:51)
[2022-04-20] VITALS (7 sets, daily range): BP systolic 109–134; BP diastolic 56–76
--- NOTE | 2022-04-20 05:45 | NUR ---
CLOSING NOTES: ALERT AND ORIENTATED X2 [place] CRUSHING PILLS AND MIXING WITH APPLESAUCE TO HACE HER TAKE THEM SWALLOWS W/O A PROBLEM INCONT UA WILL YELL OUT LOUDLY WHEN NEEDING HELP LIKE WATER OR MILK SR ON THE ACTING MANAGER THRU THE NIGHT
[2022-04-20] MEDS: BLOOD SUGAR DIAGNOSTIC 1 EACH STRIP IN SCH ×4 (06:15→21:38)
[2022-04-20] MEDS: INSULIN REGULAR, HUMAN 100 UNIT/ML 3 ML VIAL SQ PRN (06:20)
[2022-04-20] MEDS: ASPIRIN 81 MG TAB.CHEW PO SCH (08:24)
[2022-04-20] MEDS: ASCORBIC ACID 500 MG TABLET PO SCH (08:24)
[2022-04-20] MEDS: DOCUSATE SODIUM 250 MG CAPSULE PO SCH (08:24)
[2022-04-20] MEDS: PANTOPRAZOLE 40 MG VIAL IV SCH (08:24)
[2022-04-20] MEDS: ACETAMINOPHEN 325 MG TABLET PO PRN (08:24)
[2022-04-20] MEDS: FERROUS SULFATE (325 MG) 325 MG/TAB TABLET PO SCH (08:24)
[2022-04-20] MEDS ORDERED: MORPHINE SULFATE INJ 2 MG/ML DISP.SYRIN IV PRN (10:30)
--- NOTE | 2022-04-20 11:16 | NUR ---
PATIENT FOUND AWAKE BUT ANXIOUS ON 2 L NC. PATIENT REMAIN STALE W/O DISTRESS AT THIS MOMENT. Addendum: 04/20/22 at 1118 by KALEB MERCADO RT Amended: Links added.
--- NOTE | 2022-04-20 13:30 | NUR ---
pt unable to follow breathing instructions, charge nurse was notified
--- NOTE | 2022-04-20 18:40 | NUR ---
WEBFED OFFSET PRESS OPERATOR CLOSING NOTE PATIENT RECEIVED AWAKE AND LAYING IN BED. A/Ox2 WITH CONFUSION AND CONSTANTLY YELLING NEEDS THROUGHOUT SHIFT. DIRECT-ABLE. PATIENT ON 2L VIA NC WITH NO S/S OF RESPIRATORY DISTRESS. CONTINUES ON TELE MONITORING HOWEVER, REMAINS NON-COMPLIANT WITH MONITOR STAYING IN PLACE. CONSTANTLY REMOVES LEADS FROM CHEST. NO S/SX OF CARDIAC DISTRESS OBSERVED. C/O STOMACH PAIN ON SHIFT AND RECEIVED PRN TYLENOL HOWEVER MEDICATION NOT EFFECTIVE. GIVEN PRN ORDERED DOSE OF MORPHINE. MEDICATION EFFECTIVE. REFUSED 1200 BG CHECK, HOWEVER COMPLIANT WITH 1700 CHECK; BG LEVEL @ 1700 102. NO INSULIN COVERAGE NEEDED. C/O CONSTIPATION ON SHIFT. GIVEN PRN SENNA. NO REPORT OF BM AT THIS TIME. IV ACCESS L HAND REMAINS INTACT AND PATENT, SL. PATIENT TOLERATED ALL MEDICATIONS WELL. REMAINS INCONTINENT AND USES DIAPER. SAFETY MEASURES REMAIN IN PLACE WITH BED LOCKED AND IN LOWEST POSITION. SIDE RAILS UP x2 & CALL LIGHT WITHIN REACH WITH HOB ELEVATED. WILL CONTINUE TO MONITOR.
--- NOTE | 2022-04-20 19:00 | NUR ---
BARREL RAISER NOTES RECEIVED LAYING ON BED,ON RIGHT RIGHT SIDE POSITION,REFUSED TELE MONITOR,A/O X3,BREATHING NON LABORED,O2 AT 2L/NC IN USED ON AND OFF,SALINE LOCK RIGHT HAND INTACT AND PATENT.INCONTINENT OF URINE,FALL RISK,BED ON LOWEST POSITION AND LOCKED,BED,ALARM TRIGGERED,CALL LIGHT IN REACH,NEEDS ANTICIPATED.
--- NOTE | 2022-04-20 19:00 | NUR ---
AIRCRAFT INSTRUMENT MECHANIC NOTES CARDIO CONSULT,SEEN BY DR SUNG WITH PLAN,NO FURTHER CARDIAC TESTING AT THE MOMENT AND OKAY TO DISCHARGE HOME FROM CARDIAC POINT OF VIEW WITH SUB LINGUAL NITROGLYCERINE TO BE USED NEEDED,NOTED.
[2022-04-20] MEDS: ENOXAPARIN SODIUM 30 MG/0.3 ML DISP.SYRIN SQ SCH (21:37)
[2022-04-20] MEDS: MEMANTINE HCL 5 MG TABLET PO SCH (21:38)
[2022-04-20] MEDS: ATORVASTATIN 40 MG TABLET PO SCH (21:38)
[2022-04-20] MEDS: MIRTAZAPINE 15 MG TABLET PO SCH (21:38)
--- NOTE | 2022-04-20 22:00 | NUR ---
CHIEF OF STAFF DOCTOR NOTES ACCU-CHECK BLOOD SUGAR CHECK 120,NO INSULIN COVERAGE.
[2022-04-21] VITALS: BP 120/56
[2022-04-21] MEDS ORDERED: PANTOPRAZOLE 40 MG TABLET.DR PO SCH (07:30)
[2022-04-21 08:00] VITALS: BP 124/64
[2022-04-21] MEDS: ASPIRIN 81 MG TAB.CHEW PO SCH (09:42)
[2022-04-21] MEDS: FERROUS SULFATE (325 MG) 325 MG/TAB TABLET PO SCH (09:42)
[2022-04-21] MEDS: ASCORBIC ACID 500 MG TABLET PO SCH (09:42)
[2022-04-21] MEDS: DOCUSATE SODIUM 250 MG CAPSULE PO SCH (09:42)
[2022-04-21] MEDS: BLOOD SUGAR DIAGNOSTIC 1 EACH STRIP IN SCH ×2 (09:42→12:00)
[2022-04-21] MEDS ORDERED: ATOR40TA PO (09:46)
[2022-04-21] MEDS ORDERED: NITR0.4T48 SL (09:49)
[2022-04-21] MEDS: INSULIN REGULAR, HUMAN 100 UNIT/ML 3 ML VIAL SQ PRN (10:06)
[2022-04-21 12:00] VITALS: BP 98/65
== END 2022-04-21 14:00 | DRG 302 ==
LOC: ER 15:18 → TELE 20:10
PROVIDERS: ADMIT Nurse Practitioner Acute Care; ATTEND Internal Medicine
DX: I25.10 Atherosclerotic heart disease of native coronary artery without angina pectoris (principal); G93.41 Metabolic encephalopathy; K86.1 Other chronic pancreatitis; E86.0 Dehydration; E11.40 Type 2 diabetes mellitus with diabetic neuropathy, unspecified; I10 Essential (primary) hypertension; K21.9 Gastro-esophageal reflux disease without esophagitis; F25.9 Schizoaffective disorder, unspecified; F32.9 Major depressive disorder, single episode, unspecified; D50.9 Iron deficiency anemia, unspecified; E88.09 Other disorders of plasma-protein metabolism, not elsewhere classified; M19.90 Unspecified osteoarthritis, unspecified site; R13.10 Dysphagia, unspecified; Z79.4 Long term (current) use of insulin; Z79.899 Other long term (current) drug therapy; H40.9 Unspecified glaucoma; R79.89 Other specified abnormal findings of blood chemistry
CPT/HCPCS: 36415; 71045-TC; 80048-TC; 80053-TC; 80061-TC; 82962-TC; 83735-TC; 84100-TC; 84443-TC; 84484-TC; 85025-TC; 87081-TC; 93307-TC; 94799-TC; C9113; C9803; G0378; J1650; J1815; J2270

== ENCOUNTER 2023-04-06 14:42 | Inpatient (IN) | payer MEDICARE, OTHER ==
[~2023-04-06] VITALS: Ht 152.4 cm; Wt 50.8 kg
[~2023-04-06 14:42] MED LIST changes: -ARIP5TAB10 PO; +ATOR40TA PO; +FAMO20TA8 PO; +FERR325T23 PO; +LOPE2TAB23 PO; -LORA-259 PO; +MULT-1275 PO; -MULT-447 PO; +NITR0.4T48 SL; +POLY15DR40 EACHEYE; -SERT50TA PO
[2023-04-06] MEDS ORDERED: methylPREDNISolone SOD SUCC 125 MG/2ML VIAL ONE (15:20)
[2023-04-06] MEDS ORDERED: DOXYCYCLINE 100 MG in IV D5W 100 ML IV SCH ×2 (15:30→21:00)
[2023-04-06] MEDS ORDERED: methylPREDNISolone SOD SUCC 125 MG/2ML VIAL IV ONE (15:30)
[2023-04-06 15:33] LABS: BASOPHILS % (AUTO) 0.2 % (0.0-2.0); EOSINOPHILS # (AUTO) 2.6 K/uL (0.0-0.7); EOSINOPHILS % (AUTO) 18.7 % (0.0-6.0); HEMATOCRIT 36 % (33-45); HEMOGLOBIN 11.5 g/dL (11.5-14.8); LYMPHOCYTES # (AUTO) 2.6 K/uL (0.8-4.8); LYMPHOCYTES % (AUTO) 18.8 % (20.0-44.0); MEAN CORPUSCULAR HEMOGLOBIN 30 PG (26.0-33.0); MEAN CORPUSCULAR HGB CONC 32 g/dl (31.0-36.0); MEAN CORPUSCULAR VOLUME 94 fL (82-100); MONOCYTES # (AUTO) 0.7 K/uL (0.1-1.30); NEUTROPHILS # (AUTO) 7.8 K/uL (1.8-8.9); NEUTROPHILS % (AUTO) 57.3 % (43.0-81.0); PLATELET COUNT (AUTO) 500 K/uL (150-450); RED CELL DISTRIBUTION WIDTH 14.3 % (11.5-15.0); WHITE BLOOD COUNT (AUTO) 13.7 K/uL (4.3-11.0)
[2023-04-06 15:42] LABS: CREATININE 1.2 mg/dL (0.6-1.3); POTASSIUM 4.7 mmol/L (3.5-5.1)
[2023-04-06 15:48] LABS: ALBUMIN 2.9 g/dL (3.4-5.0); BILIRUBIN,DIRECT 0.1 mg/dL (0.0-0.2); BILIRUBIN,TOTAL 0.2 mg/dL (0.2-1.0); TOTAL PROTEIN, SERUM 6.8 g/dL (6.4-8.2)
[2023-04-06 16:01] LABS: APPEARANCE,URINE CLEAR (CLEAR); BILIRUBIN,URINE NEGATIVE (NEGATIVE); BLOOD, URINE 2+ Ery/uL (NEGATIVE); COLOR,URINE YELLOW (YELLOW); KETONES,URINE NEGATIVE (NEGATIVE); LEUKOCYTE ESTERASE ,URINE NEGATIVE (NEGATIVE); NITRITE, URINE NEGATIVE (NEGATIVE); PH,URINE 6.5 (5.0-8.0); PROTEIN,URINE NEGATIVE (NEGATIVE); UGLUCOSE 3+ mg/dL (NEGATIVE); UROBILINOGEN,URINE 0.2 EU/dL (0.2)
[2023-04-06 16:10] LABS: ADD URINE CULTURE YES; BACTERIA,URINE 3+ /HPF (None Seen); RBC,URINE 21-50 /HPF (0-2); WBC,URINE 0-2 /HPF (0-3)
[2023-04-06] MEDS ORDERED: MAG HYDROX/AL HYDROX/SIMETH 30 ML UDC PO PRN (17:00)
[2023-04-06] MEDS ORDERED: MAGNESIUM HYDROXIDE 30 ML UDC PO PRN (17:00)
[2023-04-06] MEDS ORDERED: DEXTROSE 50%-WATER 50 ML DISP.SYRIN IV PRN (17:00)
[2023-04-06] MEDS ORDERED: ONDANSETRON HCL/PF 4 MG/2 ML VIAL IVP PRN (17:00)
[2023-04-06] MEDS ORDERED: Z GUARD REMEDY 4 OZ OINT TP PRN (17:00)
[2023-04-06] MEDS ORDERED: VANCOMYCIN 1 GM in IV D5W 250ml IV ONE (19:00)
[2023-04-06] MEDS: INSULIN REGULAR, HUMAN 100 UNIT/ML 3 ML VIAL SQ PRN (19:48)
[2023-04-06] MEDS: IV 1/2NS 1000 ML 1,000 ML IV PRN (19:48)
[2023-04-06 20:00] VITALS: BP 119/76; TEMP 98.3; O2SAT 98
[2023-04-06] MEDS: CEFEPIME 2 GM in IV D5W 100 ML IV SCH (20:22)
[2023-04-06] MEDS: BLOOD SUGAR DIAGNOSTIC 1 EACH STRIP VI SCH (22:56)
[2023-04-06] MEDS: *INSULIN REGULAR(HUMULIN R)HUM 100 UNIT/ML VIAL SQ PRN (22:58)
[2023-04-07] VITALS: BP 135/81; TEMP 98.5; O2SAT 98
[2023-04-07] MEDS: DOXYCYCLINE 100 MG in IV D5W 100 ML IV SCH ×2 (03:28→15:10)
[2023-04-07 04:00] VITALS: BP 156/78; TEMP 97.6; O2SAT 97
[2023-04-07 06:10] LABS: EOSINOPHILS % (AUTO) 0.1 % (0.0-6.0); HEMATOCRIT 34 % (33-45); HEMOGLOBIN 11.2 g/dL (11.5-14.8); LYMPHOCYTES # (AUTO) 1.8 K/uL (0.8-4.8); LYMPHOCYTES % (AUTO) 12.3 % (20.0-44.0); MEAN CORPUSCULAR HEMOGLOBIN 31 PG (26.0-33.0); MEAN CORPUSCULAR HGB CONC 33 g/dl (31.0-36.0); MEAN CORPUSCULAR VOLUME 93 fL (82-100); MONOCYTES # (AUTO) 0.1 K/uL (0.1-1.30); MONOCYTES % (AUTO) 0.8 % (2.0-12.0); NEUTROPHILS # (AUTO) 12.6 K/uL (1.8-8.9); NEUTROPHILS % (AUTO) 86.8 % (43.0-81.0); PLATELET COUNT (AUTO) 518 K/uL (150-450); RED BLOOD CELL COUNT(AUTO) 3.66 MIL/uL (4.0-5.2); RED CELL DISTRIBUTION WIDTH 13.8 % (11.5-15.0); WHITE BLOOD COUNT (AUTO) 14.5 K/uL (4.3-11.0)
[2023-04-07 06:34] LABS: ALBUMIN 3.1 g/dL (3.4-5.0); BILIRUBIN,TOTAL 0.3 mg/dL (0.2-1.0); CALCIUM, SERUM 9.1 mg/dL (8.5-10.1); MAGNESIUM 2.4 mg/dL (1.8-2.4); PHOSPHORUS 3.3 mg/dL (2.5-4.9); POTASSIUM 4.5 mmol/L (3.5-5.1); TOTAL PROTEIN, SERUM 7.3 g/dL (6.4-8.2)
[2023-04-07] MEDS: *INSULIN REGULAR(HUMULIN R)HUM 100 UNIT/ML VIAL SQ PRN ×2 (07:27→21:30)
[2023-04-07] MEDS: BLOOD SUGAR DIAGNOSTIC 1 EACH STRIP VI SCH ×4 (07:46→21:30)
[2023-04-07 08:00] VITALS: BP 130/82; TEMP 97.9; O2SAT 97
[2023-04-07] MEDS ORDERED: NA PHOS,M-B/NA PHOS,DI-BA 1 EA ENEMA RC PRN (10:30)
[2023-04-07] MEDS ORDERED: BISACODYL SUPP (10 MG) 10 MG/SUPP.RECT SUPP.RECT RC PRN (10:30)
[2023-04-07] MEDS: INSULIN REGULAR, HUMAN 100 UNIT/ML 3 ML VIAL SQ PRN ×2 (11:55→18:29)
[2023-04-07 12:00] VITALS: BP 137/79; TEMP 97.9; O2SAT 98
[2023-04-07] MEDS: IV 1/2NS 1000 ML 1,000 ML IV PRN (12:04)
[2023-04-07] MEDS ORDERED: VANCOMYCIN 1 GM in IV D5W 250 ML IV SCH (14:30)
[2023-04-07 16:00] VITALS: BP 144/76; TEMP 98; O2SAT 98
[2023-04-07] MEDS ORDERED: BLOOD SUGAR DIAGNOSTIC 1 EACH STRIP IN SCH (16:30)
[2023-04-07] MEDS: CEFEPIME 2 GM in IV D5W 100 ML IV SCH (18:32)
[2023-04-07] MEDS: ACETAMINOPHEN 325 MG TABLET PO PRN (18:38)
[2023-04-07] MEDS: VANCOMYCIN 1 GM in IV D5W 250 ML IV SCH (18:58)
[2023-04-07] MEDS ORDERED: VANCOMYCIN HCL 0.75 GM in IV D5W 250 ML IV SCH (19:00)
[2023-04-07 20:00] VITALS: BP 120/60; TEMP 98.8; O2SAT 99
[2023-04-07] MEDS: MEMANTINE HCL 5 MG TABLET PO SCH (21:26)
[2023-04-07] MEDS: ATORVASTATIN 40 MG TABLET PO SCH (21:26)
[2023-04-07] MEDS: MIRTAZAPINE 15 MG TABLET PO SCH (21:26)
[2023-04-08] VITALS: BP 111/58; TEMP 98.2; O2SAT 99
[2023-04-08] MEDS: ACETAMINOPHEN 325 MG TABLET PO PRN (02:29)
[2023-04-08] MEDS: IV 1/2NS 1000 ML 1,000 ML IV PRN ×2 (03:52→19:05)
[2023-04-08 05:00] VITALS: BP 143/68; TEMP 98.2; O2SAT 99
[2023-04-08 07:09] LABS: CREATININE 1.2 mg/dL (0.6-1.3)
[2023-04-08 08:00] VITALS: BP 148/76; TEMP 98; O2SAT 100
[2023-04-08] MEDS: BLOOD SUGAR DIAGNOSTIC 1 EACH STRIP VI SCH ×4 (08:02→21:31)
[2023-04-08] MEDS: INSULIN REGULAR, HUMAN 100 UNIT/ML 3 ML VIAL SQ PRN ×3 (08:06→17:00)
[2023-04-08] MEDS: MULTIVITAMINS,THERAGRAN 1 UDTAB TABLET PO SCH (08:13)
[2023-04-08] MEDS: ASCORBIC ACID 500 MG TABLET PO SCH (08:13)
[2023-04-08] MEDS: DOCUSATE SODIUM 250 MG CAPSULE PO SCH (08:13)
[2023-04-08] MEDS: FAMOTIDINE (20 MG) 20 MG TABLET PO SCH (08:13)
[2023-04-08] MEDS: FERROUS SULFATE (325 MG) 325 MG/TAB TABLET PO SCH (08:13)
[2023-04-08] MEDS ORDERED: PANTOPRAZOLE 40 MG VIAL IV SCH ×2 (08:30→09:00)
[2023-04-08] MEDS: PANTOPRAZOLE 40 MG TABLET.DR PO SCH (08:41)
[2023-04-08] MEDS: predniSONE 20 MG TABLET PO SCH (08:41)
[2023-04-08] MEDS ORDERED: predniSONE 20 MG TABLET PO SCH (09:00)
[2023-04-08] MEDS ORDERED: ATOR20TA PO (09:32)
[2023-04-08] MEDS ORDERED: HYDR28.32 TP (09:32)
[2023-04-08] MEDS ORDERED: DIPH25TA25 PO (09:32)
[2023-04-08] MEDS ORDERED: PRED20TA PO (09:32)
[2023-04-08] MEDS ORDERED: TIMO5DRO35 EACHEYE (09:32)
[2023-04-08] MEDS ORDERED: ASPI-1169 PO (09:32)
[2023-04-08] MEDS ORDERED: AMYL1CAP56 PO (09:32)
[2023-04-08] MEDS ORDERED: LOSA100T31 PO (09:32)
[2023-04-08] MEDS ORDERED: GLUC1KIT SQ (09:32)
[2023-04-08] MEDS ORDERED: GLIM2TAB31 PO (09:32)
[2023-04-08 12:00] VITALS: BP 145/78; TEMP 98.2; O2SAT 100
[2023-04-08 16:00] VITALS: BP 156/93; TEMP 98.5; O2SAT 95
[2023-04-08] MEDS: VANCOMYCIN 1 GM in IV D5W 250 ML IV SCH (17:13)
[2023-04-08] MEDS: CEFEPIME 2 GM in IV D5W 100 ML IV SCH (18:16)
[2023-04-08 20:52] VITALS: BP 143/74; TEMP 98.5; O2SAT 95
[2023-04-08] MEDS: MEMANTINE HCL 5 MG TABLET PO SCH (21:19)
[2023-04-08] MEDS: ATORVASTATIN 40 MG TABLET PO SCH (21:19)
[2023-04-08] MEDS: MIRTAZAPINE 15 MG TABLET PO SCH (21:19)
[2023-04-08] MEDS: *INSULIN REGULAR(HUMULIN R)HUM 100 UNIT/ML VIAL SQ PRN (21:33)
[2023-04-09 01:16] VITALS: BP 123/82; TEMP 98.5; O2SAT 95
[2023-04-09 04:13] VITALS: BP 130/73; TEMP 98.2; O2SAT 95
[2023-04-09] MEDS: IV 1/2NS 1000 ML 1,000 ML IV PRN ×2 (04:44→18:28)
[2023-04-09 06:59] LABS: BASOPHILS % (AUTO) 0.2 % (0.0-2.0); EOSINOPHILS # (AUTO) 0.1 K/uL (0.0-0.7); EOSINOPHILS % (AUTO) 0.8 % (0.0-6.0); HEMATOCRIT 34 % (33-45); LYMPHOCYTES # (AUTO) 2.9 K/uL (0.8-4.8); LYMPHOCYTES % (AUTO) 20.7 % (20.0-44.0); MEAN CORPUSCULAR HEMOGLOBIN 31 PG (26.0-33.0); MEAN CORPUSCULAR HGB CONC 32 g/dl (31.0-36.0); MEAN CORPUSCULAR VOLUME 95 fL (82-100); MONOCYTES # (AUTO) 1.4 K/uL (0.1-1.30); MONOCYTES % (AUTO) 10.4 % (2.0-12.0); NEUTROPHILS # (AUTO) 9.5 K/uL (1.8-8.9); NEUTROPHILS % (AUTO) 67.9 % (43.0-81.0); PLATELET COUNT (AUTO) 512 K/uL (150-450); RED BLOOD CELL COUNT(AUTO) 3.61 MIL/uL (4.0-5.2); RED CELL DISTRIBUTION WIDTH 14.3 % (11.5-15.0); WHITE BLOOD COUNT (AUTO) 13.9 K/uL (4.3-11.0)
[2023-04-09 07:13] LABS: CALCIUM, SERUM 9.2 mg/dL (8.5-10.1); CREATININE 1.1 mg/dL (0.6-1.3); POTASSIUM 3.9 mmol/L (3.5-5.1)
[2023-04-09] MEDS: BLOOD SUGAR DIAGNOSTIC 1 EACH STRIP VI SCH ×4 (07:59→21:30)
[2023-04-09 08:00] VITALS: BP 155/98; TEMP 97.7; O2SAT 97
[2023-04-09] MEDS: INSULIN REGULAR, HUMAN 100 UNIT/ML 3 ML VIAL SQ PRN ×2 (08:01→16:49)
[2023-04-09] MEDS: FERROUS SULFATE (325 MG) 325 MG/TAB TABLET PO SCH (08:44)
[2023-04-09] MEDS: FAMOTIDINE (20 MG) 20 MG TABLET PO SCH (08:44)
[2023-04-09] MEDS: DOCUSATE SODIUM 250 MG CAPSULE PO SCH (08:44)
[2023-04-09] MEDS: PANTOPRAZOLE 40 MG TABLET.DR PO SCH (08:45)
[2023-04-09] MEDS: MULTIVITAMINS,THERAGRAN 1 UDTAB TABLET PO SCH (08:45)
[2023-04-09] MEDS: ASCORBIC ACID 500 MG TABLET PO SCH (08:45)
[2023-04-09] MEDS: predniSONE 20 MG TABLET PO SCH (08:45)
[2023-04-09 12:00] VITALS: TEMP 97.6; O2SAT 96
[2023-04-09 16:00] VITALS: BP 135/74; TEMP 97.6; O2SAT 95
[2023-04-09] MEDS ORDERED: CEFEPIME 1 GM in IV D5W 50 ML IV SCH (18:00)
[2023-04-09] MEDS: VANCOMYCIN 1 GM in IV D5W 250 ML IV SCH (18:22)
[2023-04-09 20:00] VITALS: BP 111/62; TEMP 98.2; O2SAT 95
[2023-04-09] MEDS: MIRTAZAPINE 15 MG TABLET PO SCH (21:20)
[2023-04-09] MEDS: ATORVASTATIN 40 MG TABLET PO SCH (21:20)
[2023-04-09] MEDS: MEMANTINE HCL 5 MG TABLET PO SCH (21:20)
[2023-04-09] MEDS: *INSULIN REGULAR(HUMULIN R)HUM 100 UNIT/ML VIAL SQ PRN (21:35)
[2023-04-10] VITALS: BP 116/70; TEMP 98.2; O2SAT 95
[2023-04-10 05:34] VITALS: BP 120/68; TEMP 98.2; O2SAT 99
[2023-04-10] MEDS: BLOOD SUGAR DIAGNOSTIC 1 EACH STRIP VI SCH ×4 (06:51→22:09)
[2023-04-10 07:00] LABS: CALCIUM, SERUM 8.6 mg/dL (8.5-10.1); POTASSIUM 3.9 mmol/L (3.5-5.1)
[2023-04-10 08:00] VITALS: BP 145/62; TEMP 98.4; O2SAT 98
[2023-04-10] MEDS: predniSONE 20 MG TABLET PO SCH ×2 (08:20→10:30)
[2023-04-10] MEDS: ASCORBIC ACID 500 MG TABLET PO SCH ×2 (08:20→10:30)
[2023-04-10] MEDS: FERROUS SULFATE (325 MG) 325 MG/TAB TABLET PO SCH ×2 (08:20→10:30)
[2023-04-10] MEDS: PANTOPRAZOLE 40 MG TABLET.DR PO SCH ×2 (08:20→10:30)
[2023-04-10] MEDS: DOCUSATE SODIUM 250 MG CAPSULE PO SCH ×2 (08:20→10:30)
[2023-04-10] MEDS: FAMOTIDINE (20 MG) 20 MG TABLET PO SCH ×2 (08:20→10:30)
[2023-04-10] MEDS: MULTIVITAMINS,THERAGRAN 1 UDTAB TABLET PO SCH ×2 (08:21→10:30)
[2023-04-10] MEDS: IV 1/2NS 1000 ML 1,000 ML IV PRN (09:22)
[2023-04-10 12:00] VITALS: BP 148/68; TEMP 98.7; O2SAT 100
[2023-04-10] MEDS: GLUCERNA SHAKE 237 ML CAN PO SCH ×2 (12:11→17:19)
[2023-04-10 16:00] VITALS: BP 142/81; TEMP 98.3; O2SAT 98
[2023-04-10 20:00] VITALS: BP 147/75; TEMP 98.2; O2SAT 95
[2023-04-10] MEDS: DOXYCYCLINE HYCLATE (100 MG) 100 MG TABLET PO SCH (21:46)
[2023-04-10] MEDS: MEMANTINE HCL 5 MG TABLET PO SCH (21:46)
[2023-04-10] MEDS: AMOX/CLAVULANATE 875 MG TABLET PO SCH (21:46)
[2023-04-10] MEDS: MIRTAZAPINE 15 MG TABLET PO SCH (21:46)
[2023-04-10] MEDS: ATORVASTATIN 40 MG TABLET PO SCH (21:46)
[2023-04-10] MEDS: *INSULIN REGULAR(HUMULIN R)HUM 100 UNIT/ML VIAL SQ PRN (22:11)
[2023-04-10] MEDS ORDERED: diphenhydrAMINE HCL 25 MG CAPSULE PO PRN (23:30)
[2023-04-11] VITALS: BP 146/82; TEMP 98.2; O2SAT 95
[2023-04-11 04:00] VITALS: BP 131/62; TEMP 98.1; O2SAT 95
[2023-04-11] MEDS: IV 1/2NS 1000 ML 1,000 ML IV PRN (05:00)
[2023-04-11 08:00] VITALS: BP 127/76; TEMP 98.1; O2SAT 96
[2023-04-11] MEDS: GLUCERNA SHAKE 237 ML CAN PO SCH ×2 (08:00→12:41)
[2023-04-11] MEDS: BLOOD SUGAR DIAGNOSTIC 1 EACH STRIP VI SCH ×2 (08:15→12:41)
[2023-04-11] MEDS: DOCUSATE SODIUM 250 MG CAPSULE PO SCH (09:18)
[2023-04-11] MEDS: ASCORBIC ACID 500 MG TABLET PO SCH (09:18)
[2023-04-11] MEDS: PANTOPRAZOLE 40 MG TABLET.DR PO SCH (09:18)
[2023-04-11] MEDS: DOXYCYCLINE HYCLATE (100 MG) 100 MG TABLET PO SCH (09:18)
[2023-04-11] MEDS: MULTIVITAMINS,THERAGRAN 1 UDTAB TABLET PO SCH (09:18)
[2023-04-11] MEDS: predniSONE 20 MG TABLET PO SCH (09:18)
[2023-04-11] MEDS: FERROUS SULFATE (325 MG) 325 MG/TAB TABLET PO SCH (09:18)
[2023-04-11] MEDS: FAMOTIDINE (20 MG) 20 MG TABLET PO SCH (09:18)
[2023-04-11] MEDS: AMOX/CLAVULANATE 875 MG TABLET PO SCH (09:18)
[2023-04-11 12:00] VITALS: BP 131/69; TEMP 97.7; O2SAT 98
[2023-04-11] MEDS: *INSULIN REGULAR(HUMULIN R)HUM 100 UNIT/ML VIAL SQ PRN (12:43)
[2023-04-11] MEDS ORDERED: DOXY100T2 PO (12:44)
[2023-04-11] MEDS ORDERED: AMOX-430 PO (12:44)
== END 2023-04-11 15:58 | DRG 595 ==
LOC: ER 14:49 → MEDSG1 18:10 → TELE1 18:55
PROVIDERS: ADMIT Internal Medicine; ATTEND Nurse Practitioner Acute Care
PROC: 05H533Z Insertion of Infusion Device into Right Subclavian Vein, Percutaneous Approach (ICD-10-PCS; principal; 2023-04-06)
PROC: B546ZZA Ultrasonography of Right Subclavian Vein, Guidance (ICD-10-PCS; 2023-04-06)
DX: L12.0 Bullous pemphigoid (principal); G93.41 Metabolic encephalopathy; J44.9 Chronic obstructive pulmonary disease, unspecified; D50.9 Iron deficiency anemia, unspecified; E78.5 Hyperlipidemia, unspecified; I10 Essential (primary) hypertension; R13.10 Dysphagia, unspecified; Z79.4 Long term (current) use of insulin; F20.9 Schizophrenia, unspecified; M19.90 Unspecified osteoarthritis, unspecified site; E11.42 Type 2 diabetes mellitus with diabetic polyneuropathy; F32.A Depression, unspecified; Z79.84 Long term (current) use of oral hypoglycemic drugs; H40.9 Unspecified glaucoma
CPT/HCPCS: 36415; 71045-TC; 80048-TC; 80053-TC; 80076-TC; 80202-TC; 81001; 82962-TC; 83735-TC; 84100-TC; 85025-TC; 87040-TC; 87081-TC; 87086-TC; A4223; A6253; A6403; G0378; J0692; J1815; J2930; J3370; J3490; J7060; Q0163

== ENCOUNTER 2023-06-26 16:09 | Inpatient (IN) | payer MEDICARE, OTHER ==
[~2023-06-26] VITALS: Ht 165.1 cm; Wt 52.2 kg
[~2023-06-26 16:09] MED LIST changes: +AMOX-430 PO; +AMYL1CAP56 PO; +ASPI-1169 PO; +ATOR20TA PO; -ATOR40TA PO; +DIPH25TA25 PO; +DOXY100T2 PO; +GLIM2TAB31 PO; +GLUC1KIT SQ; +HYDR28.32 TP; -LOPE2TAB23 PO; +LOSA100T31 PO; -NITR0.4T48 SL; +PRED20TA PO; +TIMO5DRO35 EACHEYE
[2023-06-26] MEDS ORDERED: IV NS 0.9% 1,000 ML BAG IV ONE (17:00)
[2023-06-26 17:16] LABS: BASOPHILS % (AUTO) 0.4 % (0.0-2.0); EOSINOPHILS # (AUTO) 2.8 K/uL (0.0-0.7); EOSINOPHILS % (AUTO) 22.8 % (0.0-6.0); HEMATOCRIT 41 % (33-45); HEMOGLOBIN 12.1 g/dL (11.5-14.8); LYMPHOCYTES # (AUTO) 2.2 K/uL (0.8-4.8); LYMPHOCYTES % (AUTO) 18.2 % (20.0-44.0); MEAN CORPUSCULAR HEMOGLOBIN 30 PG (26.0-33.0); MEAN CORPUSCULAR HGB CONC 30 g/dl (31.0-36.0); MEAN CORPUSCULAR VOLUME 101 fL (82-100); MONOCYTES # (AUTO) 0.5 K/uL (0.1-1.30); MONOCYTES % (AUTO) 3.8 % (2.0-12.0); NEUTROPHILS # (AUTO) 6.7 K/uL (1.8-8.9); NEUTROPHILS % (AUTO) 54.8 % (43.0-81.0); PLATELET COUNT (AUTO) 488 K/uL (150-450); RED BLOOD CELL COUNT(AUTO) 4.08 MIL/uL (4.0-5.2); RED CELL DISTRIBUTION WIDTH 17.4 % (11.5-15.0); WHITE BLOOD COUNT (AUTO) 12.2 K/uL (4.3-11.0)
[2023-06-26] MEDS ORDERED: HYDR-500 PO (17:16)
[2023-06-26] MEDS ORDERED: INSU100V11 SQ (17:16)
[2023-06-26] MEDS ORDERED: MULT-447 PO (17:16)
[2023-06-26 17:33] LABS: INR 0.97 (0.91-1.10); PARTIAL THROMBOPLASTIN TIME 26.7 SEC (24.3-34.3); PROTHROMBIN TIME 10.3 SECS (9.2-11.1)
[2023-06-26 17:47] LABS: LACTIC ACID 2.7 mmol/L (0.4-2.0)
[2023-06-26 17:48] LABS: CALCIUM, SERUM 8.7 mg/dL (8.5-10.1); CARBON DIOXIDE 20 mmol/L (21-32); CHLORIDE 120 mmol/L (98-107); GLUCOSE 165 mg/dL (74-106); POTASSIUM 5.2 mmol/L (3.5-5.1); SODIUM SERUM 155 mmol/L (136-145); UREA NITROGEN, BLOOD 79 mg/dL (7-18)
[2023-06-26 17:53] LABS: ALANINE AMINOTRANSFERASE 41 U/L (12-78); ALKALINE PHOSPHATASE 78 U/L (46-116); ASPARTATE AMINOTRANSFERASE 41 U/L (15-37); BILIRUBIN,TOTAL 0.2 mg/dL (0.2-1.0); TOTAL PROTEIN, SERUM 7.4 g/dL (6.4-8.2)
[2023-06-26] MEDS ORDERED: CEFEPIME 1 GM in IV D5W 50 ML IV ONE (18:30)
[2023-06-26] MEDS ORDERED: VANCOMYCIN 1 GM in IV D5W 250 ML IV ONE (18:30)
[2023-06-26 18:43] LABS: ANISOCYTOSIS 1+; BAND % (MANUAL) 1 % (0.0-5.0); EOSINOPHILS % (MANUAL) 20 % (0-4); LYMPHOCYTES % (MANUAL) 15 % (16-48); MONOCYTES % (MANUAL) 2 % (0-11.0); NEUTROPHILS % (MANUAL) 62 (42-76); PLATELET ESTIMATE INCREASED; ROULEAUX 1+
[2023-06-26 21:21] LABS: APPEARANCE,URINE CLOUDY (CLEAR); BILIRUBIN,URINE 1+ (NEGATIVE); BLOOD, URINE NEGATIVE Ery/uL (NEGATIVE); COLOR,URINE YELLOW (YELLOW); KETONES,URINE NEGATIVE (NEGATIVE); LEUKOCYTE ESTERASE ,URINE 1+ (NEGATIVE); NITRITE, URINE NEGATIVE (NEGATIVE); PROTEIN,URINE TRACE mg/dl (NEGATIVE); UGLUCOSE NEGATIVE (NEGATIVE); UROBILINOGEN,URINE 0.2 EU/dL (0.2)
[2023-06-26] MEDS ORDERED: Z GUARD REMEDY 4 OZ OINT TP PRN (21:30)
[2023-06-26] MEDS ORDERED: BISACODYL SUPP (10 MG) 10 MG/SUPP.RECT SUPP.RECT RC PRN (21:30)
[2023-06-26] MEDS ORDERED: MAG HYDROX/AL HYDROX/SIMETH 30 ML UDC PO PRN (21:30)
[2023-06-26] MEDS ORDERED: HYDROCORTISONE 1% CREAM 28.35 GM TUBE TP PRN (21:30)
[2023-06-26] MEDS ORDERED: NA PHOS,M-B/NA PHOS,DI-BA 1 EA ENEMA RC PRN (21:30)
[2023-06-26] MEDS ORDERED: DEXTROSE 50%-WATER 50 ML DISP.SYRIN IV PRN (21:30)
[2023-06-26] MEDS ORDERED: ONDANSETRON HCL/PF 4 MG/2 ML VIAL IVP PRN (21:30)
[2023-06-26] MEDS ORDERED: MAGNESIUM HYDROXIDE 30 ML UDC PO PRN ×2 (21:30)
[2023-06-26] MEDS ORDERED: ACETAMINOPHEN 325 MG TABLET PO PRN ×2 (21:30)
[2023-06-26] MEDS ORDERED: IV NS 0.9% 1,000 ML IV PRN (21:30)
[2023-06-26 21:51] LABS: RBC,URINE 0-2 /HPF (0-2)
[2023-06-26 21:52] LABS: ADD URINE CULTURE YES; BACTERIA,URINE 2+ /HPF (None Seen); MUCUS,URINE Many /LPF (None Seen); SQUAMOUS EPITHELIAL CELL,UR 21-50 /HPF (None Seen)
[2023-06-26] MEDS: ATORVASTATIN 10 MG TABLET PO SCH (22:00)
[2023-06-26] MEDS: MEMANTINE HCL 5 MG TABLET PO SCH (22:00)
[2023-06-26] MEDS: MIRTAZAPINE 15 MG TABLET PO SCH (22:00)
[2023-06-26] MEDS ORDERED: MELATONIN 3 MG TABLET PO SCH (22:00)
[2023-06-26] MEDS: BLOOD SUGAR DIAGNOSTIC 1 EACH STRIP IN SCH (22:31)
[2023-06-27] MEDS: POLYVINYL ALCOHOL 15 ML BOTTLE EACHEYE SCH ×3 (04:57→21:22)
[2023-06-27] MEDS: methylPREDNISolone SOD SUCC 40 MG/ML VIAL IV SCH ×3 (04:58→21:22)
[2023-06-27] MEDS: IV 1/2NS 1000 ML 1,000 ML IV PRN ×2 (06:42→18:06)
[2023-06-27] MEDS: BLOOD SUGAR DIAGNOSTIC 1 EACH STRIP IN SCH ×4 (07:06→22:59)
[2023-06-27] MEDS: FAMOTIDINE (20 MG) 20 MG TABLET PO SCH ×2 (07:30→09:28)
[2023-06-27] MEDS ORDERED: AMYLASE/LIPASE/PROTEASE 1 CAP.EC PO SCH (08:00)
[2023-06-27] MEDS: DOCUSATE SODIUM 250 MG CAPSULE PO SCH ×2 (09:00→09:22)
[2023-06-27] MEDS ORDERED: CEFEPIME 1 GM in IV D5W 50 ML IV SCH (09:00)
[2023-06-27] MEDS: ASPIRIN 81 MG TAB.CHEW PO SCH ×2 (09:00→09:22)
[2023-06-27] MEDS: FERROUS SULFATE (325 MG) 325 MG/TAB TABLET PO SCH ×3 (09:00→17:00)
[2023-06-27] MEDS: MULTIVIT W/MINERALS 1 TAB TABLET PO SCH (09:23)
[2023-06-27] MEDS: PSYLLIUM SEED 1 PKT PACKET PO SCH (09:23)
[2023-06-27] MEDS: ASCORBIC ACID 500 MG TABLET PO SCH (09:23)
[2023-06-27] MEDS: TIMOLOL 0.5% SOLN OPHTH 5 ML BOTTLE EACHEYE SCH (09:30)
[2023-06-27 09:44] LABS: BASOPHILS % (AUTO) 0.1 % (0.0-2.0); EOSINOPHILS # (AUTO) 0.5 K/uL (0.0-0.7); EOSINOPHILS % (AUTO) 4.1 % (0.0-6.0); HEMATOCRIT 37 % (33-45); HEMOGLOBIN 10.9 g/dL (11.5-14.8); LYMPHOCYTES % (AUTO) 8.8 % (20.0-44.0); MEAN CORPUSCULAR HEMOGLOBIN 29 PG (26.0-33.0); MEAN CORPUSCULAR HGB CONC 30 g/dl (31.0-36.0); MEAN CORPUSCULAR VOLUME 98 fL (82-100); MONOCYTES # (AUTO) 0.1 K/uL (0.1-1.30); MONOCYTES % (AUTO) 1.2 % (2.0-12.0); NEUTROPHILS # (AUTO) 9.7 K/uL (1.8-8.9); NEUTROPHILS % (AUTO) 85.8 % (43.0-81.0); PLATELET COUNT (AUTO) 456 K/uL (150-450); RED BLOOD CELL COUNT(AUTO) 3.75 MIL/uL (4.0-5.2); RED CELL DISTRIBUTION WIDTH 16.6 % (11.5-15.0); WHITE BLOOD COUNT (AUTO) 11.3 K/uL (4.3-11.0)
[2023-06-27 11:27] LABS: CALCIUM, SERUM 7.5 mg/dL (8.5-10.1); CARBON DIOXIDE 18 mmol/L (21-32); CHLORIDE 125 mmol/L (98-107); CREATININE 3.4 mg/dL (0.6-1.3); GLUCOSE 169 mg/dL (74-106); MAGNESIUM 3.2 mg/dL (1.8-2.4); PHOSPHORUS 7.1 mg/dL (2.5-4.9); POTASSIUM 5.5 mmol/L (3.5-5.1)
[2023-06-27 11:29] LABS: SODIUM SERUM 156 mmol/L (136-145)
[2023-06-27 11:30] LABS: UREA NITROGEN, BLOOD 86 mg/dL (7-18)
[2023-06-27] MEDS: LIPASE/PROTEASE/AMYLASE 1 EACH CAPSULE.DR PO SCH ×2 (13:00→18:00)
[2023-06-27] MEDS: INSULIN REGULAR, HUMAN 100 UNIT/ML 3 ML VIAL SQ PRN ×2 (13:39→23:01)
[2023-06-27] MEDS ORDERED: IV NS 0.9% 250 ML IV ONE (18:00)
[2023-06-27] MEDS ORDERED: AMIODARONE 150 MG in IV D5W 100 ML IV ONE (18:00)
[2023-06-27] MEDS: AMIODARONE 450 MG in IV D5W 241 ML IV PRN (18:19)
[2023-06-27] MEDS: CEFEPIME 1 GM in IV D5W 50 ML IV SCH (18:21)
[2023-06-27 18:31] VITALS: BP 90/71; TEMP 98
[2023-06-27] MEDS: MIRTAZAPINE 15 MG TABLET PO SCH (21:23)
[2023-06-27] MEDS: ATORVASTATIN 10 MG TABLET PO SCH (21:24)
[2023-06-27] MEDS: MEMANTINE HCL 5 MG TABLET PO SCH (21:24)
[2023-06-28] MEDS: methylPREDNISolone SOD SUCC 40 MG/ML VIAL IV SCH ×3 (04:39→21:58)
[2023-06-28] MEDS: POLYVINYL ALCOHOL 15 ML BOTTLE EACHEYE SCH ×3 (04:40→22:04)
[2023-06-28] MEDS: AMIODARONE 450 MG in IV D5W 241 ML IV PRN (04:59)
[2023-06-28] MEDS: IV 1/2NS 1000 ML 1,000 ML IV PRN ×2 (05:58→16:52)
[2023-06-28 07:35] LABS: BASOPHILS % (AUTO) 0.1 % (0.0-2.0); HEMATOCRIT 31 % (33-45); HEMOGLOBIN 9.4 g/dL (11.5-14.8); LYMPHOCYTES # (AUTO) 1.2 K/uL (0.8-4.8); LYMPHOCYTES % (AUTO) 11.8 % (20.0-44.0); MEAN CORPUSCULAR HEMOGLOBIN 30 PG (26.0-33.0); MEAN CORPUSCULAR HGB CONC 30 g/dl (31.0-36.0); MEAN CORPUSCULAR VOLUME 98 fL (82-100); MONOCYTES # (AUTO) 0.3 K/uL (0.1-1.30); MONOCYTES % (AUTO) 2.6 % (2.0-12.0); NEUTROPHILS # (AUTO) 8.8 K/uL (1.8-8.9); NEUTROPHILS % (AUTO) 85.5 % (43.0-81.0); PLATELET COUNT (AUTO) 380 K/uL (150-450); RED BLOOD CELL COUNT(AUTO) 3.16 MIL/uL (4.0-5.2); RED CELL DISTRIBUTION WIDTH 16.2 % (11.5-15.0); WHITE BLOOD COUNT (AUTO) 10.3 K/uL (4.3-11.0)
[2023-06-28 07:47] LABS: ALANINE AMINOTRANSFERASE 33 U/L (12-78); ALKALINE PHOSPHATASE 53 U/L (46-116); ASPARTATE AMINOTRANSFERASE 46 U/L (15-37); BILIRUBIN,TOTAL 0.2 mg/dL (0.2-1.0); CARBON DIOXIDE 16 mmol/L (21-32); CHLORIDE 120 mmol/L (98-107); CREATININE 2.9 mg/dL (0.6-1.3); GLUCOSE 295 mg/dL (74-106); MAGNESIUM 3.2 mg/dL (1.8-2.4); PHOSPHORUS 5.7 mg/dL (2.5-4.9); POTASSIUM 4.7 mmol/L (3.5-5.1); SODIUM SERUM 147 mmol/L (136-145); TOTAL PROTEIN, SERUM 5.6 g/dL (6.4-8.2)
[2023-06-28 07:58] LABS: ALBUMIN 1.4 g/dL (3.4-5.0); UREA NITROGEN, BLOOD 93 mg/dL (7-18)
[2023-06-28 07:59] LABS: CREATINE KINASE, TOTAL 1274 U/L (26-192)
[2023-06-28 08:00] VITALS: BP 93/55; TEMP 97; TEMP 97.7; O2SAT 100
[2023-06-28] MEDS: LIPASE/PROTEASE/AMYLASE 1 EACH CAPSULE.DR PO SCH ×3 (08:30→18:00)
[2023-06-28] MEDS: FAMOTIDINE (20 MG) 20 MG TABLET PO SCH (08:30)
[2023-06-28] MEDS: MULTIVIT W/MINERALS 1 TAB TABLET PO SCH (08:30)
[2023-06-28] MEDS: PSYLLIUM SEED 1 PKT PACKET PO SCH ×2 (08:31→09:00)
[2023-06-28] MEDS: FERROUS SULFATE (325 MG) 325 MG/TAB TABLET PO SCH ×2 (08:31→17:00)
[2023-06-28] MEDS: ASCORBIC ACID 500 MG TABLET PO SCH (08:31)
[2023-06-28] MEDS: ASPIRIN 81 MG TAB.CHEW PO SCH (08:31)
[2023-06-28] MEDS: DOCUSATE SODIUM 250 MG CAPSULE PO SCH (08:31)
[2023-06-28] MEDS: BLOOD SUGAR DIAGNOSTIC 1 EACH STRIP IN SCH ×4 (09:59→23:28)
[2023-06-28] MEDS: TIMOLOL 0.5% SOLN OPHTH 5 ML BOTTLE EACHEYE SCH (10:00)
[2023-06-28] MEDS: INSULIN REGULAR, HUMAN 100 UNIT/ML 3 ML VIAL SQ PRN ×3 (10:02→18:21)
[2023-06-28 12:00] VITALS: BP 94/56; TEMP 97.7; O2SAT 98
[2023-06-28] MEDS: PROSOURCE / PROSTAT (PYXIS) 30 ML UDC PO SCH ×2 (12:37→17:00)
[2023-06-28 16:00] VITALS: BP 83/57; TEMP 98.1; O2SAT 97
[2023-06-28] MEDS ORDERED: IV NS 0.9% 500 ML IV STA (16:40)
[2023-06-28] MEDS: GLUCERNA SHAKE 237 ML CAN PO SCH (17:00)
[2023-06-28] MEDS: AMIODARONE HCL 200 MG TABLET PO SCH (17:00)
[2023-06-28] MEDS ORDERED: VANCOMYCIN 0.75 GM in IV D5W 250 ML IV SCH (18:00)
[2023-06-28] MEDS: CEFEPIME 1 GM in IV D5W 50 ML IV SCH (18:19)
[2023-06-28 20:00] VITALS: BP 110/66; TEMP 97.9; O2SAT 100
[2023-06-28] MEDS: ATORVASTATIN 10 MG TABLET PO SCH (21:59)
[2023-06-28] MEDS: MIRTAZAPINE 15 MG TABLET PO SCH (22:00)
[2023-06-28] MEDS: MEMANTINE HCL 5 MG TABLET PO SCH (22:01)
[2023-06-29 04:00] VITALS: BP 110/66; TEMP 97.9; O2SAT 100
[2023-06-29] MEDS: POLYVINYL ALCOHOL 15 ML BOTTLE EACHEYE SCH ×3 (05:00→21:00)
[2023-06-29] MEDS: methylPREDNISolone SOD SUCC 40 MG/ML VIAL IV SCH ×3 (05:25→21:18)
[2023-06-29] MEDS: FAMOTIDINE (20 MG) 20 MG TABLET PO SCH ×2 (07:30→08:39)
[2023-06-29 07:55] LABS: CALCIUM, SERUM 7.2 mg/dL (8.5-10.1); CARBON DIOXIDE 14 mmol/L (21-32); CHLORIDE 117 mmol/L (98-107); GLUCOSE 210 mg/dL (74-106); PHOSPHORUS 4.1 mg/dL (2.5-4.9); POTASSIUM 4.3 mmol/L (3.5-5.1); SODIUM SERUM 144 mmol/L (136-145); UREA NITROGEN, BLOOD 71 mg/dL (7-18)
[2023-06-29 08:00] VITALS: BP 136/83; TEMP 97.4; O2SAT 100
[2023-06-29] MEDS: LIPASE/PROTEASE/AMYLASE 1 EACH CAPSULE.DR PO SCH ×4 (08:00→18:41)
[2023-06-29] MEDS: GLUCERNA SHAKE 237 ML CAN PO SCH ×2 (08:00→17:00)
[2023-06-29] MEDS: BLOOD SUGAR DIAGNOSTIC 1 EACH STRIP IN SCH ×4 (08:37→22:00)
[2023-06-29] MEDS: PSYLLIUM SEED 1 PKT PACKET PO SCH ×2 (08:38→09:00)
[2023-06-29] MEDS: DOCUSATE SODIUM 250 MG CAPSULE PO SCH ×2 (08:38→09:00)
[2023-06-29] MEDS: ASPIRIN 81 MG TAB.CHEW PO SCH ×2 (08:38→09:00)
[2023-06-29] MEDS: FERROUS SULFATE (325 MG) 325 MG/TAB TABLET PO SCH ×3 (08:39→18:42)
[2023-06-29] MEDS: PROSOURCE / PROSTAT (PYXIS) 30 ML UDC PO SCH ×4 (08:39→17:00)
[2023-06-29] MEDS: MULTIVIT W/MINERALS 1 TAB TABLET PO SCH ×2 (08:39→09:00)
[2023-06-29] MEDS: ASCORBIC ACID 500 MG TABLET PO SCH ×2 (08:39→09:00)
[2023-06-29] MEDS: TIMOLOL 0.5% SOLN OPHTH 5 ML BOTTLE EACHEYE SCH (08:40)
[2023-06-29] MEDS: INSULIN REGULAR, HUMAN 100 UNIT/ML 3 ML VIAL SQ PRN ×5 (08:41→22:00)
[2023-06-29] MEDS: AMIODARONE HCL 200 MG TABLET PO SCH ×4 (08:44→18:41)
[2023-06-29] MEDS: IV 1/2NS 1000 ML 1,000 ML IV PRN (09:15)
[2023-06-29] MEDS: IV D5/0.45 NACL 1,000 ML IV PRN (11:17)
[2023-06-29 11:23] LABS: HEMATOCRIT 32 % (33-45); LYMPHOCYTES # (AUTO) 0.8 K/uL (0.8-4.8); LYMPHOCYTES % (AUTO) 5.4 % (20.0-44.0); MEAN CORPUSCULAR HEMOGLOBIN 30 PG (26.0-33.0); MEAN CORPUSCULAR HGB CONC 31 g/dl (31.0-36.0); MEAN CORPUSCULAR VOLUME 95 fL (82-100); MONOCYTES # (AUTO) 0.2 K/uL (0.1-1.30); MONOCYTES % (AUTO) 1.5 % (2.0-12.0); NEUTROPHILS # (AUTO) 14.4 K/uL (1.8-8.9); NEUTROPHILS % (AUTO) 93.1 % (43.0-81.0); PLATELET COUNT (AUTO) 378 K/uL (150-450); RED BLOOD CELL COUNT(AUTO) 3.38 MIL/uL (4.0-5.2); RED CELL DISTRIBUTION WIDTH 15.4 % (11.5-15.0); WHITE BLOOD COUNT (AUTO) 15.5 K/uL (4.3-11.0)
[2023-06-29 12:00] VITALS: BP 143/83; TEMP 97.9; O2SAT 98
[2023-06-29] MEDS: MORPHINE SULFATE INJ 2 MG/ML DISP.SYRIN IV PRN (15:42)
[2023-06-29 16:00] VITALS: BP 141/84; TEMP 97.8; O2SAT 98
[2023-06-29] MEDS: CEFEPIME 1 GM in IV D5W 50 ML IV SCH (18:42)
[2023-06-29 19:09] LABS: APPEARANCE,URINE CLEAR (CLEAR); BILIRUBIN,URINE NEGATIVE (NEGATIVE); BLOOD, URINE 1+ Ery/uL (NEGATIVE); COLOR,URINE YELLOW (YELLOW); KETONES,URINE NEGATIVE (NEGATIVE); LEUKOCYTE ESTERASE ,URINE TRACE (NEGATIVE); NITRITE, URINE NEGATIVE (NEGATIVE); PROTEIN,URINE TRACE mg/dl (NEGATIVE); UGLUCOSE 3+ mg/dL (NEGATIVE); UROBILINOGEN,URINE 0.2 EU/dL (0.2)
[2023-06-29 19:24] LABS: CREATININE, URINE 33.3 MG/DL (30.0-125.0); URINE TOTAL PROTEIN 33.5 mg/dL (0-11.9)
[2023-06-29 19:25] LABS: ADD URINE CULTURE NO; BACTERIA,URINE RARE /HPF (None Seen); URIC ACID CRYSTALS,URINE MANY /HPF (None Seen)
[2023-06-29 19:29] LABS: EOSINOPHIL,URINE None Seen
[2023-06-29 20:00] VITALS: BP 126/82; TEMP 98.4; O2SAT 98
[2023-06-29] MEDS: ATORVASTATIN 10 MG TABLET PO SCH (21:17)
[2023-06-29] MEDS: MIRTAZAPINE 15 MG TABLET PO SCH (21:17)
[2023-06-29] MEDS: MEMANTINE HCL 5 MG TABLET PO SCH (21:18)
[2023-06-30] VITALS: BP 125/73; TEMP 98.2; O2SAT 100
[2023-06-30] MEDS ORDERED: POTASSIUM CHLORIDE 10 MEQ/50 ML PREMIXED IVPB FOR PERIPHERAL LINE IV ONE (00:30)
[2023-06-30 04:00] VITALS: BP 130/62; TEMP 97.9; O2SAT 100
[2023-06-30] MEDS: IV D5/0.45 NACL 1,000 ML IV PRN (04:34)
[2023-06-30] MEDS: POLYVINYL ALCOHOL 15 ML BOTTLE EACHEYE SCH ×3 (04:35→21:16)
[2023-06-30] MEDS: methylPREDNISolone SOD SUCC 40 MG/ML VIAL IV SCH ×3 (04:52→21:14)
[2023-06-30 06:45] LABS: BASOPHILS % (AUTO) 0.1 % (0.0-2.0); HEMATOCRIT 33 % (33-45); HEMOGLOBIN 10.3 g/dL (11.5-14.8); LYMPHOCYTES # (AUTO) 0.9 K/uL (0.8-4.8); LYMPHOCYTES % (AUTO) 7.6 % (20.0-44.0); MEAN CORPUSCULAR HEMOGLOBIN 30 PG (26.0-33.0); MEAN CORPUSCULAR HGB CONC 31 g/dl (31.0-36.0); MEAN CORPUSCULAR VOLUME 95 fL (82-100); MONOCYTES # (AUTO) 0.3 K/uL (0.1-1.30); MONOCYTES % (AUTO) 2.3 % (2.0-12.0); NEUTROPHILS # (AUTO) 11.1 K/uL (1.8-8.9); PLATELET COUNT (AUTO) 370 K/uL (150-450); RED BLOOD CELL COUNT(AUTO) 3.46 MIL/uL (4.0-5.2); RED CELL DISTRIBUTION WIDTH 15.2 % (11.5-15.0); WHITE BLOOD COUNT (AUTO) 12.3 K/uL (4.3-11.0)
[2023-06-30 06:59] LABS: ALANINE AMINOTRANSFERASE 40 U/L (12-78); ALBUMIN 1.6 g/dL (3.4-5.0); ALKALINE PHOSPHATASE 66 U/L (46-116); ASPARTATE AMINOTRANSFERASE 31 U/L (15-37); BILIRUBIN,TOTAL 0.4 mg/dL (0.2-1.0); CALCIUM, SERUM 7.6 mg/dL (8.5-10.1); CARBON DIOXIDE 19 mmol/L (21-32); CHLORIDE 120 mmol/L (98-107); CREATININE 1.5 mg/dL (0.6-1.3); GLUCOSE 152 mg/dL (74-106); MAGNESIUM 2.9 mg/dL (1.8-2.4); PHOSPHORUS 3.2 mg/dL (2.5-4.9); SODIUM SERUM 148 mmol/L (136-145); UREA NITROGEN, BLOOD 52 mg/dL (7-18)
[2023-06-30 07:00] LABS: CREATINE KINASE, TOTAL 465 U/L (26-192)
[2023-06-30] MEDS: BLOOD SUGAR DIAGNOSTIC 1 EACH STRIP IN SCH ×4 (07:33→23:12)
[2023-06-30] MEDS: FAMOTIDINE (20 MG) 20 MG TABLET PO SCH (07:47)
[2023-06-30] MEDS: LIPASE/PROTEASE/AMYLASE 1 EACH CAPSULE.DR PO SCH ×3 (07:47→17:58)
[2023-06-30] MEDS: GLUCERNA SHAKE 237 ML CAN PO SCH ×2 (07:49→17:58)
[2023-06-30 08:00] VITALS: BP 124/65; TEMP 97.3; O2SAT 100
[2023-06-30] MEDS ORDERED: VANCOMYCIN 0.75 GM in IV D5W 250 ML IV SCH (08:00)
[2023-06-30] MEDS: PSYLLIUM SEED 1 PKT PACKET PO SCH ×2 (09:00→09:29)
[2023-06-30] MEDS: PROSOURCE / PROSTAT (PYXIS) 30 ML UDC PO SCH ×3 (09:00→17:00)
[2023-06-30] MEDS: DOCUSATE SODIUM 250 MG CAPSULE PO SCH (09:29)
[2023-06-30] MEDS: TIMOLOL 0.5% SOLN OPHTH 5 ML BOTTLE EACHEYE SCH (09:29)
[2023-06-30] MEDS: MULTIVIT W/MINERALS 1 TAB TABLET PO SCH (09:29)
[2023-06-30] MEDS: FERROUS SULFATE (325 MG) 325 MG/TAB TABLET PO SCH ×2 (09:29→17:58)
[2023-06-30] MEDS: ASCORBIC ACID 500 MG TABLET PO SCH (09:29)
[2023-06-30] MEDS: ASPIRIN 81 MG TAB.CHEW PO SCH (09:30)
[2023-06-30] MEDS: AMIODARONE HCL 200 MG TABLET PO SCH ×3 (09:36→18:00)
[2023-06-30] MEDS: INSULIN REGULAR, HUMAN 100 UNIT/ML 3 ML VIAL SQ PRN ×4 (09:37→23:15)
[2023-06-30 12:00] VITALS: BP 133/70; TEMP 97.6; O2SAT 100
[2023-06-30 16:00] VITALS: BP 132/71; TEMP 98; O2SAT 100
[2023-06-30] MEDS: CEFEPIME 1 GM in IV D5W 50 ML IV SCH (18:23)
[2023-06-30 20:00] VITALS: BP 158/75; TEMP 97.6; O2SAT 100
[2023-06-30] MEDS: MEMANTINE HCL 5 MG TABLET PO SCH (21:14)
[2023-06-30] MEDS: MIRTAZAPINE 15 MG TABLET PO SCH (21:15)
[2023-06-30] MEDS: ATORVASTATIN 10 MG TABLET PO SCH (21:15)
[2023-06-30] MEDS: ZOLPIDEM TARTRATE 5 MG TABLET PO PRN ×4 (21:15→23:16)
[2023-06-30] MEDS: MORPHINE SULFATE INJ 2 MG/ML DISP.SYRIN IV PRN (21:30)
[2023-07-01] VITALS: BP 151/66; TEMP 97.6; O2SAT 100
[2023-07-01 04:00] VITALS: BP 127/94; TEMP 97.7; O2SAT 100
[2023-07-01] MEDS: POLYVINYL ALCOHOL 15 ML BOTTLE EACHEYE SCH ×3 (04:27→20:43)
[2023-07-01] MEDS: methylPREDNISolone SOD SUCC 40 MG/ML VIAL IV SCH ×3 (04:27→20:40)
[2023-07-01 07:02] LABS: BASOPHILS % (AUTO) 0.1 % (0.0-2.0); HEMATOCRIT 33 % (33-45); HEMOGLOBIN 10.6 g/dL (11.5-14.8); LYMPHOCYTES # (AUTO) 0.8 K/uL (0.8-4.8); LYMPHOCYTES % (AUTO) 7.7 % (20.0-44.0); MEAN CORPUSCULAR HEMOGLOBIN 30 PG (26.0-33.0); MEAN CORPUSCULAR HGB CONC 32 g/dl (31.0-36.0); MEAN CORPUSCULAR VOLUME 93 fL (82-100); MONOCYTES # (AUTO) 0.2 K/uL (0.1-1.30); MONOCYTES % (AUTO) 2.2 % (2.0-12.0); NEUTROPHILS # (AUTO) 9.5 K/uL (1.8-8.9); PLATELET COUNT (AUTO) 375 K/uL (150-450); RED BLOOD CELL COUNT(AUTO) 3.57 MIL/uL (4.0-5.2); RED CELL DISTRIBUTION WIDTH 14.8 % (11.5-15.0); WHITE BLOOD COUNT (AUTO) 10.6 K/uL (4.3-11.0)
[2023-07-01 07:25] LABS: CALCIUM, SERUM 7.7 mg/dL (8.5-10.1); CREATININE 1.2 mg/dL (0.6-1.3); MAGNESIUM 2.9 mg/dL (1.8-2.4); PHOSPHORUS 2.9 mg/dL (2.5-4.9); POTASSIUM 3.8 mmol/L (3.5-5.1)
[2023-07-01] MEDS: LIPASE/PROTEASE/AMYLASE 1 EACH CAPSULE.DR PO SCH ×3 (07:41→18:15)
[2023-07-01] MEDS: FAMOTIDINE (20 MG) 20 MG TABLET PO SCH (07:41)
[2023-07-01 08:00] VITALS: BP 125/68; TEMP 96.8; O2SAT 100
[2023-07-01 08:07] LABS: PTH, INTACT 36 pg/mL (15-65)
[2023-07-01] MEDS: BLOOD SUGAR DIAGNOSTIC 1 EACH STRIP IN SCH ×4 (08:07→22:45)
[2023-07-01] MEDS: VANCOMYCIN HCL 0.75 GM in IV D5W 250 ML IV SCH (08:31)
[2023-07-01] MEDS: MULTIVIT W/MINERALS 1 TAB TABLET PO SCH (08:33)
[2023-07-01] MEDS: ASCORBIC ACID 500 MG TABLET PO SCH (08:33)
[2023-07-01] MEDS: FERROUS SULFATE (325 MG) 325 MG/TAB TABLET PO SCH ×2 (08:33→18:15)
[2023-07-01] MEDS: PSYLLIUM SEED 1 PKT PACKET PO SCH (08:33)
[2023-07-01] MEDS: ASPIRIN 81 MG TAB.CHEW PO SCH (08:34)
[2023-07-01] MEDS: TIMOLOL 0.5% SOLN OPHTH 5 ML BOTTLE EACHEYE SCH (08:34)
[2023-07-01] MEDS: AMIODARONE HCL 200 MG TABLET PO SCH ×3 (08:34→18:17)
[2023-07-01] MEDS: DOCUSATE SODIUM 250 MG CAPSULE PO SCH (08:34)
[2023-07-01] MEDS: GLUCERNA SHAKE 237 ML CAN PO SCH ×2 (08:34→18:17)
[2023-07-01] MEDS: INSULIN REGULAR, HUMAN 100 UNIT/ML 3 ML VIAL SQ PRN ×3 (08:40→21:42)
[2023-07-01] MEDS: PROSOURCE / PROSTAT (PYXIS) 30 ML UDC PO SCH ×3 (09:14→18:17)
[2023-07-01 12:00] VITALS: BP 125/68; TEMP 97.7; O2SAT 100
[2023-07-01] MEDS: MORPHINE SULFATE INJ 2 MG/ML DISP.SYRIN IV PRN ×4 (13:24→21:12)
[2023-07-01] MEDS: CEFEPIME 1 GM in IV D5W 50 ML IV SCH (18:47)
[2023-07-01 20:00] VITALS: BP 153/103; TEMP 98.1; O2SAT 99
[2023-07-01] MEDS: MIRTAZAPINE 15 MG TABLET PO SCH (21:35)
[2023-07-01] MEDS: MEMANTINE HCL 5 MG TABLET PO SCH (21:35)
[2023-07-01] MEDS: ATORVASTATIN 10 MG TABLET PO SCH (21:36)
[2023-07-02 04:00] VITALS: BP 135/95; TEMP 98; O2SAT 97
[2023-07-02] MEDS: POLYVINYL ALCOHOL 15 ML BOTTLE EACHEYE SCH ×2 (05:00→12:55)
[2023-07-02] MEDS: methylPREDNISolone SOD SUCC 40 MG/ML VIAL IV SCH ×2 (05:10→12:54)
[2023-07-02] MEDS: BLOOD SUGAR DIAGNOSTIC 1 EACH STRIP IN SCH ×2 (08:05→12:04)
[2023-07-02] MEDS: INSULIN REGULAR, HUMAN 100 UNIT/ML 3 ML VIAL SQ PRN ×2 (08:06→12:05)
[2023-07-02] MEDS: ASPIRIN 81 MG TAB.CHEW PO SCH (08:32)
[2023-07-02] MEDS: LIPASE/PROTEASE/AMYLASE 1 EACH CAPSULE.DR PO SCH ×2 (08:32→12:54)
[2023-07-02] MEDS: DOCUSATE SODIUM 250 MG CAPSULE PO SCH (08:33)
[2023-07-02] MEDS: FAMOTIDINE (20 MG) 20 MG TABLET PO SCH (08:33)
[2023-07-02] MEDS: AMIODARONE HCL 200 MG TABLET PO SCH ×2 (08:33→12:55)
[2023-07-02] MEDS: ASCORBIC ACID 500 MG TABLET PO SCH (08:34)
[2023-07-02] MEDS: FERROUS SULFATE (325 MG) 325 MG/TAB TABLET PO SCH (08:34)
[2023-07-02] MEDS: GLUCERNA SHAKE 237 ML CAN PO SCH (08:34)
[2023-07-02] MEDS: MULTIVIT W/MINERALS 1 TAB TABLET PO SCH (08:34)
[2023-07-02] MEDS: PSYLLIUM SEED 1 PKT PACKET PO SCH (08:34)
[2023-07-02] MEDS: VANCOMYCIN HCL 0.75 GM in IV D5W 250 ML IV SCH (08:36)
[2023-07-02] MEDS: TIMOLOL 0.5% SOLN OPHTH 5 ML BOTTLE EACHEYE SCH (08:39)
[2023-07-02] MEDS: PROSOURCE / PROSTAT (PYXIS) 30 ML UDC PO SCH ×2 (08:40→12:55)
[2023-07-02 09:00] VITALS: BP 148/81
[2023-07-02 09:05] LABS: CALCIUM, SERUM 7.6 mg/dL (8.5-10.1); CARBON DIOXIDE 24 mmol/L (21-32); CHLORIDE 109 mmol/L (98-107); CREATININE 1.2 mg/dL (0.6-1.3); GLUCOSE 180 mg/dL (74-106); POTASSIUM 3.7 mmol/L (3.5-5.1); SODIUM SERUM 143 mmol/L (136-145); UREA NITROGEN, BLOOD 30 mg/dL (7-18)
[2023-07-02] MEDS ORDERED: AMIO200T7 PO (11:08)
[2023-07-02] MEDS ORDERED: CEFE1FRO IV (11:08)
[2023-07-02] MEDS ORDERED: VANC750F2 IV (11:08)
[2023-07-02] MEDS ORDERED: PRED50TA PO (11:08)
[2023-07-02] MEDS ORDERED: PANT40TA2 PO (11:08)
[2023-07-02] MEDS ORDERED: hydrALAZINE HCL IV 20 MG VIAL IV STA (15:28)
[2023-07-02 15:45] VITALS: BP 114/44; TEMP 98; O2SAT 100
[2023-07-03 11:06] LABS: *SPE A/G RATIO 0.6 (0.7-1.7); *SPE ALBUMIN 1.6 g/dL (2.9-4.4); *SPE ALPHA-1-GLOBULIN 0.3 g/dL (0.0-0.4); *SPE ALPHA-2-GLOBULIN 0.7 g/dL (0.4-1.0); *SPE BETA GLOBULIN 0.7 g/dL (0.7-1.3); *SPE GLOBULIN, TOTAL 2.8 g/dL (2.2-3.9); *SPE M-SPIKE Not Observed g/dL (Not Observed); *SPE PROTEIN TOTAL 4.4 g/dL (6.0-8.5); *SPEGAMMA GLOBULIN 1.2 g/dL (0.4-1.8)
== END 2023-07-02 15:58 | DRG 871 ==
LOC: ER 16:27 → MEDSG1 20:47 → TELE-TD 06-27 17:53 → TELE1 06-29 16:12
PROVIDERS: ADMIT Nurse Practitioner Acute Care; ATTEND Nurse Practitioner Acute Care
PROC: 05HF33Z Insertion of Infusion Device into Left Cephalic Vein, Percutaneous Approach (ICD-10-PCS; principal; 2023-06-27)
DX: A41.9 Sepsis, unspecified organism (principal); E43 Unspecified severe protein-calorie malnutrition; G93.41 Metabolic encephalopathy; N17.0 Acute kidney failure with tubular necrosis; N39.0 Urinary tract infection, site not specified; L12.0 Bullous pemphigoid; Z68.1 Body mass index [BMI] 19.9 or less, adult; E87.0 Hyperosmolality and hypernatremia; E87.20 Acidosis, unspecified; D68.59 Other primary thrombophilia; F03.93 Unspecified dementia, unspecified severity, with mood disturbance; R65.20 Severe sepsis without septic shock; R62.7 Adult failure to thrive; E86.0 Dehydration; E86.1 Hypovolemia; E87.5 Hyperkalemia; H40.9 Unspecified glaucoma; F20.9 Schizophrenia, unspecified; J44.9 Chronic obstructive pulmonary disease, unspecified; Z79.4 Long term (current) use of insulin; Z79.899 Other long term (current) drug therapy; I48.91 Unspecified atrial fibrillation; Z79.82 Long term (current) use of aspirin; Z91.148 Patient's other noncompliance with medication regimen for other reason; E11.65 Type 2 diabetes mellitus with hyperglycemia; E88.09 Other disorders of plasma-protein metabolism, not elsewhere classified; Z79.84 Long term (current) use of oral hypoglycemic drugs; E78.5 Hyperlipidemia, unspecified; I10 Essential (primary) hypertension; S30.0XXA Contusion of lower back and pelvis, initial encounter; X58.XXXA Exposure to other specified factors, initial encounter; Y92.129 Unspecified place in nursing home as the place of occurrence of the external cause; Z74.09 Other reduced mobility
CPT/HCPCS: 36410; 36415; 71045-TC; 76770-TC; 80048-TC; 80053-TC; 80076-TC; 80202-TC; 81001; 82550-TC; 82553; 82570-TC; 82962-TC; 83605-TC; 83735-TC; 83970; 84100-TC; 84155; 84165; 84300-TC; 84484-TC; 85025-TC; 85730-TC; 87040-TC; 87081-TC; 87086-TC; 92526; 92611-TC; A4223; A6253; A6403; G0378; J0282; J0360; J0692; J1815; J2270; J2920; J3370; J3490; J7030; J7040; J7050; J7060